=== PATIENT | female | born 1975 | race Caucasian/White ===

== ENCOUNTER 2022-03-23 16:14 | Inpatient (IN) | payer MEDICAID, BC, OTHER ==
[~2022-03-23] VITALS: Ht 152.4 cm; Wt 54.4 kg
--- NOTE | 2022-03-23 16:21 | NUR ---
BG 72
[2022-03-23] MEDS ORDERED: IV D5/ 0.9% NACL 1,000 ML IV ONE (16:30)
--- NOTE | 2022-03-23 16:37 | NUR ---
URINE COLLECTED AND SENT TO LAB
[2022-03-23 16:42] LABS: BASOPHILS % (AUTO) 0.1 % (0.0-2.0); EOSINOPHILS % (AUTO) 0.1 % (0.0-6.0); HEMATOCRIT 33 % (33-45); HEMOGLOBIN 9.4 g/dL (11.5-14.8); LYMPHOCYTES # (AUTO) 0.3 K/uL (0.8-4.8); MEAN CORPUSCULAR HGB CONC 28 g/dl (31.0-36.0); MEAN CORPUSCULAR VOLUME 103 fL (82-100); MONOCYTES # (AUTO) 1.7 K/uL (0.1-1.30); MONOCYTES % (AUTO) 14.8 % (2.0-12.0); NEUTROPHILS # (AUTO) 9.2 K/uL (1.8-8.9); RED BLOOD CELL COUNT(AUTO) 3.24 MIL/uL (4.0-5.2); WHITE BLOOD COUNT (AUTO) 11.3 K/uL (4.3-11.0)
--- NOTE | 2022-03-23 16:58 | NUR ---
MOVE SHEET SUBMITTED.
[2022-03-23 17:02] LABS: BILIRUBIN,URINE LARGE (NEGATIVE); COLOR,URINE YELLOW (YELLOW); LEUKOCYTE ESTERASE ,URINE NEGATIVE (NEGATIVE); NITRITE, URINE NEGATIVE (NEGATIVE); PROTEIN,URINE 30 mg/dl (NEGATIVE); UGLUCOSE NEGATIVE (NEGATIVE)
[2022-03-23 17:09] LABS: CALCIUM, SERUM 8.1 mg/dL (8.5-10.1); CARBON DIOXIDE 21 mmol/L (21-32); CHLORIDE 108 mmol/L (98-107); POTASSIUM 3.6 mmol/L (3.5-5.1); SODIUM SERUM 144 mmol/L (136-145); UREA NITROGEN, BLOOD 19 mg/dL (7-18)
[2022-03-23 17:10] LABS: SERUM AMMONIA 153 umol/L (11-32)
[2022-03-23] MEDS ORDERED: LORAZEPAM INJ 2 MG/ML VIAL ONE ×2 (17:10→21:42)
[2022-03-23 17:24] LABS: ALANINE AMINOTRANSFERASE 35 U/L (12-78); ALBUMIN 2.3 g/dL (3.4-5.0); ALCOHOL, BLOOD < 3 mg/dL (0-0); ALKALINE PHOSPHATASE 143 U/L (46-116); ASPARTATE AMINOTRANSFERASE 125 U/L (15-37); BILIRUBIN,DIRECT 6.2 mg/dL (0.0-0.2); BILIRUBIN,TOTAL 9.3 mg/dL (0.2-1.0); TOTAL PROTEIN, SERUM 7.2 g/dL (6.4-8.2)
[2022-03-23 17:25] LABS: ACETAMINOPHEN 0 ug/ml (10-30); GLUCOSE 494 mg/dL (74-106)
--- NOTE | 2022-03-23 17:27 | NUR ---
BG 234
[2022-03-23] MEDS ORDERED: IV NS 0.9% 1,000 ML IV ONE ×2 (17:30→19:00)
[2022-03-23] MEDS ORDERED: LORAZEPAM INJ 2 MG/ML VIAL IV ONE ×2 (17:30→21:30)
[2022-03-23 17:36] LABS: PLATELET COUNT (AUTO) 69 K/uL (150-450)
[2022-03-23 17:41] LABS: LYMPHOCYTES % (MANUAL) 4 % (16-48); MONOCYTES % (MANUAL) 5 % (0-11.0); NEUTROPHILS % (MANUAL) 91 (42-76)
[2022-03-23 17:44] LABS: BACTERIA,URINE 1+ /HPF (None Seen); RBC,URINE 81-100 /HPF (0-2); SQUAMOUS EPITHELIAL CELL,UR 0-2 /HPF (None Seen); URINE AMORPHOUS URATE Many /HPF (None Seen); WBC,URINE 0-2 /HPF (0-3)
[2022-03-23 18:04] LABS: THYROID STIMULATING HORMONE 0.521 uIU/mL (0.358-3.74)
--- NOTE | 2022-03-23 18:20 | NUR ---
PATIENT NOTED WITH O2 86% ON 6 LPM NASAL CANNULA. MD MADE AWARE. PATIENT MOVED TO BED 8 AND PLACED ON 15 LPM O2 VIA NRB MASK.
--- NOTE | 2022-03-23 18:49 | NUR ---
SLURRY PLANT OPERATOR AT BEDSIDE FOR XRAY
--- NOTE | 2022-03-23 18:56 | NUR ---
PATIENT O2 SATURATION IMPROVED TO 92% ON 15 LPM VIA NRB
[2022-03-23] MEDS ORDERED: PIPERACILLIN /TAZOBACTAM 3.375 G in IV D5W 50 ML IV ONE (19:00)
[2022-03-23] MEDS ORDERED: LACTULOSE 10 G/15 ML UDC (PYXIS) GT ONE (19:00)
[2022-03-23] MEDS ORDERED: VANCOMYCIN 1 GM in IV D5W 250 ML IV ONE (19:00)
--- NOTE | 2022-03-23 19:01 | NUR ---
COVID SWAB TAKEN AND SENT TO LAB
[2022-03-23] MEDS ORDERED: PIPERACILLIN /TAZOBACTAM 3.375 G VIAL IV ONE (19:05)
[2022-03-23 19:09] LABS: ABG BASE EXCESS -7.2 mmol/L; ABG PCO2 33.8 mmHg (35.0-45.0); ABG PH 7.338 (7.350-7.450); ABG PO2 69.6 mmHg (75.0-100.0); COHb 0.4 % (0.5-1.5); MetHb 0.3 % (0.0-1.5); O2Hb 88.3 % (94.0-97.0); SITE, ABG Right Radial; VENT MODE, BG 15 L NON REBREATHER
[2022-03-23] MEDS ORDERED: VANCOMYCIN 1 GM VIAL ONE (20:03)
[2022-03-23] MEDS ORDERED: PROPOFOL 100 ML ONE (22:42)
--- NOTE | 2022-03-23 22:50 | NUR ---
ER MD, RN, RT AT BEDSIDE FOR INTUBATION. TIME OUT DONE.
--- NOTE | 2022-03-23 22:57 | NUR ---
PATIENT INTUBATED AT 2257 B/P 123/82 RR 23 HR 125 PT TOLERATING VENT SETTING AT THIS TIME
[2022-03-23] MEDS ORDERED: ETOMIDATE 2 MG/ML VIAL IV ONE (23:00)
[2022-03-23] MEDS ORDERED: ROCURONIUM BROMIDE 100 MG/10 ML VIAL IV ONE (23:00)
--- NOTE | 2022-03-23 23:00 | NUR ---
RT NOTE PT INTUBATED VIA 7.5 ETT AT 23 LIPLINE. POSTIVE COLOR CHANGE AND BILATERAL BS NOTED. ETT SECURE AND PATENT. PT PLACED ON VENT W SETTINGS: AC 16,450,100%,+5. ALARMS SET AND AUDIBLE. VENT PLUGGED INTO RED OUTLET. PT SXD W NO ADVERSE REACTIONS.
[2022-03-23] MEDS ORDERED: PROPOFOL 100 ML IV PRN (23:30)
[2022-03-23] MEDS ORDERED: LACTULOSE 10 G/15 ML UDC (PYXIS) ONE (23:31)
[2022-03-24] VITALS (52 sets, daily range): BP systolic 88–125; BP diastolic 52–112
[2022-03-24] MEDS ORDERED: MORPHINE SULFATE INJ 2 MG/ML DISP.SYRIN IV PRN
[2022-03-24] MEDS ORDERED: DEXTROSE 50%-WATER 50 ML DISP.SYRIN IV PRN
[2022-03-24] MEDS ORDERED: Z GUARD REMEDY 4 OZ OINT TP PRN
[2022-03-24] MEDS ORDERED: ALBUTEROL FS 2.5 MG/3 ML VIAL.NEB NEB PRN
[2022-03-24] MEDS ORDERED: NOREPINEPHRINE 8 MG in IV NS 0.9% 242 ML IV PRN (00:30)
[2022-03-24 00:47] LABS: ABG BASE EXCESS -6.9 mmol/L; ABG PCO2 40.7 mmHg (35.0-45.0); ABG PH 7.292 (7.350-7.450); ABG PO2 290.6 mmHg (75.0-100.0); COHb 0.3 % (0.5-1.5); MetHb 0.6 % (0.0-1.5); O2Hb 98.7 % (94.0-97.0); PEEP,BG 5 cm H2O; SITE, ABG Right Radial; VENT MODE, BG AC 16 450 100% +5; VT, ABG 450 mL
[2022-03-24] MEDS ORDERED: IOHEXOL-350 100 ML VIAL IV ONE ×2 (00:51→02:42)
[2022-03-24] MEDS ORDERED: IV NS 0.9% 250 ML IV ONE ×2 (00:51→02:42)
--- NOTE | 2022-03-24 01:00 | NUR ---
RT NOTE ABG DONE AND RESULTS RELAYED TO MD. O2 TITRATED TO 60%. NO OTHER CHANGES ORDERED AT THIS TIME.
--- NOTE | 2022-03-24 01:55 | NUR ---
RT NOTE ETT RETRACTED TO 22CM LIP LINE PER MD ORDER. NO S/S OF RESP DISTRESS. RN AWARE.
[2022-03-24] MEDS ORDERED: ZOSYN IVPB 3.375 G in IV D5W 50ml IV ONE (03:00)
--- NOTE | 2022-03-24 03:00 | NUR ---
patient returned from ct
[2022-03-24] MEDS ORDERED: PIPERACILLIN /TAZOBACTAM 3.375 G VIAL IV ONE (03:20)
--- NOTE | 2022-03-24 05:00 | NUR ---
propofol running at 20 mcg/kg/min pt vss pt tolerating vent setting well will continue to monitor
[2022-03-24] MEDS ORDERED: PROPOFOL 100 ML ONE (05:09)
[2022-03-24 05:18] LABS: BASOPHILS # (AUTO) 0.1 K/uL (0.0-0.2); BASOPHILS % (AUTO) 0.7 % (0.0-2.0); EOSINOPHILS % (AUTO) 0.3 % (0.0-6.0); HEMATOCRIT 31 % (33-45); LYMPHOCYTES # (AUTO) 0.9 K/uL (0.8-4.8); LYMPHOCYTES % (AUTO) 8.3 % (20.0-44.0); MEAN CORPUSCULAR HGB CONC 32 g/dl (31.0-36.0); MEAN CORPUSCULAR VOLUME 92 fL (82-100); MONOCYTES # (AUTO) 2.1 K/uL (0.1-1.30); MONOCYTES % (AUTO) 19.9 % (2.0-12.0); NEUTROPHILS # (AUTO) 7.5 K/uL (1.8-8.9); NEUTROPHILS % (AUTO) 70.8 % (43.0-81.0); PLATELET COUNT (AUTO) 58 K/uL (150-450); RED BLOOD CELL COUNT(AUTO) 3.41 MIL/uL (4.0-5.2); WHITE BLOOD COUNT (AUTO) 10.6 K/uL (4.3-11.0)
[2022-03-24 05:30] LABS: CALCIUM, SERUM 7.8 mg/dL (8.5-10.1); CREATININE 1.2 mg/dL (0.6-1.3); MAGNESIUM 1.8 mg/dL (1.8-2.4); PHOSPHORUS 2.5 mg/dL (2.5-4.9); POTASSIUM 3.4 mmol/L (3.5-5.1)
[2022-03-24 05:42] LABS: THYROID STIMULATING HORMONE 0.811 uIU/mL (0.358-3.74)
[2022-03-24] MEDS: BLOOD SUGAR DIAGNOSTIC 1 EACH STRIP IN SCH ×4 (06:09→16:46)
[2022-03-24 06:42] LABS: BAND % (MANUAL) 4 % (0.0-5.0); LYMPHOCYTES % (MANUAL) 16 % (16-48); MONOCYTES % (MANUAL) 15 % (0-11.0); NEUTROPHILS % (MANUAL) 65 (42-76)
--- NOTE | 2022-03-24 07:32 | NUR ---
GOT BED 257
--- NOTE | 2022-03-24 08:00 | NUR ---
MACHINE TOOL BUILDER NOTES PATIENT ADMITTED FROM ER 46Y/OLD FEMALE ON Dx OF END STAGE LIVER FAILURE, AND ACUTE HYPOXIC RESPIRATORY DISTRESS. PATIENT INTUBATED ETT SETTINGS ARE: 7.5/22, TV-450, FIO2-50%, PEEP-5, AND AC-16. BEDSIDE MONITOR SHOWS ST-122. PATIENT SEDATED DIPRIVAN 20MCG/KG/MIN, PATIENT BREATHING FAST, INCREASED SEDATION PE Dr JOSEPH, TITRATED UP PER PROTOCOL. SKIN ASSESSMENT DONE, PICTURE TAKEN, MILLER DRAINING DARK YELLOW OUTPUT, PATIENT T-103.2 F, COOLING MEASURE APPLIED, ALSO CALLED MD FOR TYLENOL ORDERS. AM CARE DONE. KEEP HOB ELEVATED. NGT INTACT, AND CLAMPED. PATIENT GETTING PICC LINE INSERTION OF MOHAN, BILATERAL WRIST RESTRAIN INTACT. BED IS LOCKED, SIDE RAILS UP X3. WILL FOLLOW UP.
[2022-03-24] MEDS: IV D5/ 0.9% NACL 1,000 ML IV PRN (08:23)
[2022-03-24] MEDS: VANCOMYCIN HCL 0.75 GM in IV D5W 250 ML IV SCH ×2 (08:39→20:32)
[2022-03-24] MEDS: FUROSEMIDE 40 MG/4 ML VIAL IV SCH (09:17)
[2022-03-24] MEDS: PANTOPRAZOLE 40 MG VIAL IV SCH (09:17)
[2022-03-24] MEDS ORDERED: ETOMIDATE 2 MG/ML VIAL IV ONE (09:18)
[2022-03-24] MEDS: PIPERACILLIN /TAZOBACTAM 3.375 G in IV D5W 50 ML IV SCH ×3 (09:18→20:43)
[2022-03-24] MEDS ORDERED: ROCURONIUM BROMIDE 50 MG/5 ML IV ONE (09:18)
[2022-03-24] MEDS: POTASSIUM CL. PREMIX PERIPHER. 50 ML IV SCH ×2 (09:53→11:17)
[2022-03-24] MEDS ORDERED: LACTULOSE 10 G/15 ML UDC (PYXIS) PO PRN (10:00)
[2022-03-24] MEDS ORDERED: INSU100I14 SQ (10:07)
[2022-03-24] MEDS ORDERED: TRAZ150T75 PO (10:07)
[2022-03-24] MEDS ORDERED: ESCI10TA PO (10:07)
[2022-03-24] MEDS ORDERED: PANT40TA49 PO (10:07)
[2022-03-24] MEDS ORDERED: LACT10SO3 PO (10:07)
[2022-03-24] MEDS ORDERED: DULO60CA64 PO (10:07)
[2022-03-24] MEDS ORDERED: SPIR25TA6 PO (10:07)
[2022-03-24] MEDS ORDERED: METF-440 PO (10:07)
[2022-03-24] MEDS ORDERED: POTA8CAP20 PO (10:07)
[2022-03-24] MEDS ORDERED: ARIP30TA3 PO (10:07)
[2022-03-24] MEDS ORDERED: HYDR50CA9 PO (10:07)
[2022-03-24] MEDS ORDERED: GABA300C PO (10:07)
--- NOTE | 2022-03-24 10:23 | NUR ---
RN NOTE PT DNR STATUS. PT UNRESPONSIVE, PUPILS FIXED, APNEIC, AREFLEXIVE, ASYSTOLIC IN 2 LEADS. PRONOUNCED AT 1023 Addendum: 03/24/22 at 1038 by DEAN FARAH RN RN AMENDMENT CHARTED ON WRONG CHART. DISREGARD NOTE
[2022-03-24] MEDS: DEXAMETHASONE SOD PHOSPHATE 10 MG/ML VIAL IV SCH (10:25)
[2022-03-24] MEDS: PROPRANOLOL HCL 40 MG TABLET NG SCH ×2 (10:37→20:45)
[2022-03-24] MEDS: PROPOFOL 100 ML IV PRN ×3 (11:59→23:25)
--- NOTE | 2022-03-24 12:00 | NUR ---
rn notes BS-143 MG/DL, NO COVERAGE GIVEN PER HOSPITALIST Dr MACDONALD, , T-99.8F, GET ORDER OF TYLENOL 650 MG VIA NGT Q 6HR. ORDER TAKEN AND CARRIED OUT.
--- NOTE | 2022-03-24 16:20 | NUR ---
RN NOTES COVIS -19 PCR SPECIMEN TAKEN. TAKEN TO THE LABORATORY BY MY SELF.
--- NOTE | 2022-03-24 17:27 | NUR ---
RN NOTES ADMINISTERED TYLENOL 650 MG VIA NGT FOR T-99/7F.
[2022-03-24] MEDS ORDERED: ACETAMINOPHEN 650 MG/20.3 ML UDC NG PRN (17:30)
--- NOTE | 2022-03-24 18:00 | NUR ---
RN NOTES BS-184 MG/DL NO COVERAGE GIVE PER HOSPITALIST IF BS LOWER THAN 200MG/DL.
--- NOTE | 2022-03-24 18:43 | NUR ---
RN NOTES T-99.3F , MEDICATION WERE ADMINISTERED EFFECTIVE, ASSIST TURN AND REPOSTION Q 2 HR, KEEP HOB ELEVATED. INFUSING DIPRIVAN 50MCG/KG/MIN, D5NS @40ML/HR, AND TKO @10ML/HR MOHAN PICC LINE INTACT. DUE MEDICATION ADMINISTERED. MILLER DRAINING VIA GRAVITY 2800ML URINE OUTPUT . RECHECKED RESTRAIN BILATERAL WRISTS INTACT. ENDORSED ONCOMING NURSE NINA.
--- NOTE | 2022-03-24 19:40 | NUR ---
AMMONIA STILL OPERATOR OPENING NOTES RECEIVED PT IN BED, INTUBATED ETT SETTINGS: 7.5/22, AC- 16, TV- 450, PEEP-5. PT IS SEDATED WITH PROPOFOL 50MCG/KG/MIN. IV ACCESS ON MOHAN PICC LINE. INFUSING D5NS @40ML/HR, AND TKO @10ML/HR. NO FACIAL GRIMACING NOTED. NO ACUTE DISTRESS. MILLER CATHETER IN PLACE. DRAINING VIA GRAVITY. BILATERAL WRISTS RESTRAINT IN PLACE. ALL SAFETY MEASURES IN PLACE. SIDE RAILS UP X3, BED IN LOWEST POSITION AND LOCKED. PLACE CALL LIGHT WITH IN REACH. WILL CONTINUE TO MONITOR
--- NOTE | 2022-03-24 20:28 | NUR ---
RN NOTES: PT'S MOTHER CALLED, SHE WANTS TO COME TO ICU AND VISIT THE PT. EXPLAINED TO THE MOTHER, PT IS PCR PENDING. CAN'T VISIT AT THIS MOMENT. BUT KEPT INSISTING. NOTIFIED SPOOL FIXER. SHE TALKED TO THE FAMILY, BROUGHT THEM TO ICU AND MOM VISITED THE PT BY THE WINDOW.
[2022-03-25] VITALS (83 sets, daily range): BP systolic 95–152; BP diastolic 52–130
[2022-03-25] MEDS: BLOOD SUGAR DIAGNOSTIC 1 EACH STRIP IN SCH ×4 (00:03→18:23)
[2022-03-25] MEDS: INSULIN REGULAR, HUMAN 100 UNIT/ML 3 ML VIAL SQ PRN ×4 (00:05→18:25)
[2022-03-25] MEDS: PIPERACILLIN /TAZOBACTAM 3.375 G in IV D5W 50 ML IV SCH ×4 (03:11→21:05)
[2022-03-25 05:17] LABS: BASOPHILS % (AUTO) 0.2 % (0.0-2.0); HEMATOCRIT 27 % (33-45); HEMOGLOBIN 8.7 g/dL (11.5-14.8); LYMPHOCYTES # (AUTO) 0.4 K/uL (0.8-4.8); LYMPHOCYTES % (AUTO) 11.9 % (20.0-44.0); MEAN CORPUSCULAR HGB CONC 32 g/dl (31.0-36.0); MEAN CORPUSCULAR VOLUME 92 fL (82-100); MONOCYTES # (AUTO) 0.4 K/uL (0.1-1.30); MONOCYTES % (AUTO) 11.5 % (2.0-12.0); NEUTROPHILS # (AUTO) 2.7 K/uL (1.8-8.9); NEUTROPHILS % (AUTO) 76.4 % (43.0-81.0); RED BLOOD CELL COUNT(AUTO) 2.95 MIL/uL (4.0-5.2); WHITE BLOOD COUNT (AUTO) 3.5 K/uL (4.3-11.0)
[2022-03-25 05:18] LABS: CALCIUM, SERUM 7.7 mg/dL (8.5-10.1); CREATININE 1.1 mg/dL (0.6-1.3); POTASSIUM 3.1 mmol/L (3.5-5.1)
[2022-03-25 05:26] LABS: PLATELET COUNT (AUTO) 33 K/uL (150-450)
--- NOTE | 2022-03-25 05:38 | NUR ---
RN NOTES: RECEIVED LAB RESULT, PT'S PLATELET 33, BEFORE IT WAS 58. NO S/S OF BLEEDING. WILL CONTINUE TO MONITOR
[2022-03-25] MEDS: PROPOFOL 100 ML IV PRN (06:11)
--- NOTE | 2022-03-25 06:48 | NUR ---
NEWSPAPER COPY EDITOR CLOSING NOTES PT IN BED, INTUBATED ETT SETTINGS: 7.5/22, AC- 16, TV- 450, PEEP-5. PT IS SEDATED WITH PROPOFOL 50MCG/KG/MIN. IV ACCESS ON MOHAN PICC LINE. INFUSING D5NS @40ML/HR, AND TKO @10ML/HR. NO FACIAL GRIMACING NOTED. NO ACUTE DISTRESS. MILLER CATHETER IN PLACE. DRAINING VIA GRAVITY. BILATERAL WRISTS RESTRAINT IN PLACE. ALL DUE MEDS GIVEN ORDERED. BLOOD SUGAR 284, 6 UNITS OF REGULAR INSULIN. ALL SAFETY MEASURES IN PLACE. SIDE RAILS UP X3, BED IN LOWEST POSITION AND LOCKED. PLACE CALL LIGHT WITH IN REACH. WILL ENDORSE TO MORNING SHIFT NURSE
[2022-03-25] MEDS: FUROSEMIDE 40 MG/4 ML VIAL IV SCH (07:46)
[2022-03-25] MEDS: VANCOMYCIN HCL 0.75 GM in IV D5W 250 ML IV SCH ×2 (07:46→19:55)
[2022-03-25] MEDS: PANTOPRAZOLE 40 MG VIAL IV SCH (07:46)
[2022-03-25] MEDS: DEXAMETHASONE SOD PHOSPHATE 10 MG/ML VIAL IV SCH (07:47)
[2022-03-25] MEDS: PROPRANOLOL HCL 40 MG TABLET NG SCH ×2 (07:47→21:05)
--- NOTE | 2022-03-25 08:00 | NUR ---
RN NOTES PATIENT INTUBATED, NO ACUTE RESPIRATORY DISTRESS, SEDATED DIPRIVAN 50MCG/KG/MIN. HR-66, BP 98/56, INFUSING D5NS@40ML/HR, MILLER DRAINING VIA GRAVITY. KEEP HOB ELEVATED, ASSIST TURN AND REPOSTION Q 2 HR. SUCTION, MOUTH CARE DONE, NGT CLAMPED ADMINISTERED SCHEDULED MEDICATION, LAB VALUES REVIEWED, RECHECKED BILATERAL WRIST RESTRAIN INTACT. WILL FOLLOW UP.
[2022-03-25] MEDS ORDERED: POTASSIUM CHLORIDE 20 MEQ POWDER PACKET GT SCH (08:30)
[2022-03-25] MEDS: IV D5/ 0.9% NACL 1,000 ML IV PRN ×2 (08:47→18:27)
[2022-03-25 08:51] LABS: MAGNESIUM 2.1 mg/dL (1.8-2.4)
--- NOTE | 2022-03-25 08:55 | NUR ---
rn notes held sedation at this time for weaning from vent . patient calm and cooperative, no acute respiratory distress, RT with the patient . will follow up.
[2022-03-25 09:06] LABS: THYROID STIMULATING HORMONE 0.243 uIU/mL (0.358-3.74)
[2022-03-25 11:05] LABS: BAND % (MANUAL) 5 % (0.0-5.0); LYMPHOCYTES % (MANUAL) 19 % (16-48); MONOCYTES % (MANUAL) 7 % (0-11.0); NEUTROPHILS % (MANUAL) 69 (42-76)
--- NOTE | 2022-03-25 12:00 | NUR ---
RN NOTES BS-258 MG/DL COVERAGE GIVEN, CONTINUING MONITOR PATIENT OFF SEDATION, PATIENT ABLE TO MOVING FOOTS, BUT UNABLE TO OPEN EYES, MOTHER NEXT TO THE BED.
--- NOTE | 2022-03-25 18:30 | NUR ---
RN NOTES PM CARE DONE SUCTION, ASSIST TURN AND REPOSTION. PATIENT OFF SEDATION MONITORING, TOLERATING ETT SETTING WELL, NO ACUTE RESPIRATORY DISTRESS, KEEP HOB ELEVATED, RECHECKED BILATERAL WRIST RESTRAIN INTACT. PATIENT NPO NGT CLAMPED, BS-233 MG/DL COVERAGE GIVEN, INFUSING D5NS@100ML/HR, AND TKO @10ML ON MOHAN PICC LINE INTACT. DVT PUMP ON, MILLER DRAINING 1580ML OF OUTPUT. ENDORSED ONCOMING NURSE NINA.
[2022-03-26] VITALS (30 sets, daily range): BP systolic 95–124; BP diastolic 56–76
[2022-03-26] MEDS: BLOOD SUGAR DIAGNOSTIC 1 EACH STRIP IN SCH ×5 (00:29→23:16)
[2022-03-26] MEDS: INSULIN REGULAR, HUMAN 100 UNIT/ML 3 ML VIAL SQ PRN ×4 (00:38→23:23)
[2022-03-26] MEDS: LACTULOSE 10 G/15 ML UDC (PYXIS) PO PRN ×2 (01:18→07:00)
[2022-03-26] MEDS: PIPERACILLIN /TAZOBACTAM 3.375 G in IV D5W 50 ML IV SCH ×4 (03:07→21:28)
[2022-03-26 04:02] LABS: HEMATOCRIT 29 % (33-45); HEMOGLOBIN 9.3 g/dL (11.5-14.8); LYMPHOCYTES # (AUTO) 0.2 K/uL (0.8-4.8); LYMPHOCYTES % (AUTO) 4.8 % (20.0-44.0); MEAN CORPUSCULAR HGB CONC 32 g/dl (31.0-36.0); MEAN CORPUSCULAR VOLUME 92 fL (82-100); MONOCYTES # (AUTO) 0.5 K/uL (0.1-1.30); NEUTROPHILS # (AUTO) 4.4 K/uL (1.8-8.9); NEUTROPHILS % (AUTO) 85.2 % (43.0-81.0); RED BLOOD CELL COUNT(AUTO) 3.14 MIL/uL (4.0-5.2); WHITE BLOOD COUNT (AUTO) 5.2 K/uL (4.3-11.0)
[2022-03-26] MEDS: IV D5/ 0.9% NACL 1,000 ML IV PRN (04:28)
[2022-03-26 04:33] LABS: CREATININE 0.9 mg/dL (0.6-1.3); POTASSIUM 3.5 mmol/L (3.5-5.1)
[2022-03-26 04:34] LABS: ALBUMIN 1.8 g/dL (3.4-5.0); BILIRUBIN,TOTAL 6.1 mg/dL (0.2-1.0); MAGNESIUM 1.9 mg/dL (1.8-2.4); PHOSPHORUS 2.9 mg/dL (2.5-4.9); TOTAL PROTEIN, SERUM 6.2 g/dL (6.4-8.2)
[2022-03-26 04:40] LABS: PLATELET COUNT (AUTO) 32 K/uL (150-450)
[2022-03-26 05:05] LABS: BAND % (MANUAL) 4 % (0.0-5.0); BASOPHILS % (MANUAL) 0 % (0.0-2.0); EOSINOPHILS % (MANUAL) 0 % (0-4); LYMPHOCYTES % (MANUAL) 6 % (16-48); MONOCYTES % (MANUAL) 8 % (0-11.0); NEUTROPHILS % (MANUAL) 82 (42-76)
--- NOTE | 2022-03-26 07:28 | NUR ---
RN OPENING NOTES RECEIVED PT IN BED, INTUBATED ETT SETTINGS: 7.5/, AC- 16, TV- 450,FiO2 30% PEEP-5. IV ACCESS ON MOHAN PICC LINE. INFUSING D5NS @100ML/HR, AND TKO @10ML/HR. NO FACIAL GRIMACING NOTED. NO ACUTE DISTRESS. NGT NOTED. MILLER CATHETER IN PLACE. DRAINING VIA GRAVITY. BILATERAL WRISTS RESTRAINT IN PLACE. ALL SAFETY MEASURES IN PLACE. SIDE RAILS UP X3, BED IN LOWEST POSITION AND LOCKED. PLACE CALL LIGHT WITH IN REACH.
[2022-03-26] MEDS: DEXAMETHASONE SOD PHOSPHATE 10 MG/ML VIAL IV SCH (08:06)
[2022-03-26] MEDS: VANCOMYCIN HCL 0.75 GM in IV D5W 250 ML IV SCH (08:06)
[2022-03-26] MEDS: PANTOPRAZOLE 40 MG VIAL IV SCH (08:07)
[2022-03-26] MEDS: PROPRANOLOL HCL 40 MG TABLET NG SCH ×2 (08:08→21:00)
--- NOTE | 2022-03-26 08:29 | NUR ---
RN NOTE RECIEVED ORDER FROM DR JOSEPH TO INITIATE TUBE FEEDING GLUCERNA 1.2 AT 30ML/HR. NUTRITION CONSULTS ALSO PLACE FOR A FINAL RATE. LACTULOSE RX ORDER CHANGED TO Q6HR NEXT DOSE IS SCHEDULED FOR 1200 TODAY. AMONIA LEVEL IS ALSO TO BE DRAWN TODAY ORDERS PLACED.
[2022-03-26] MEDS: GLUCERNA 1.2 1,000 ML BOTTLE NG PRN (10:11)
[2022-03-26] MEDS: LACTULOSE 10 G/15 ML UDC (PYXIS) PO SCH ×3 (11:23→23:17)
[2022-03-26] MEDS: IV 1/2NS 1000 ML 1,000 ML IV SCH (15:00)
[2022-03-26 15:38] LABS: C-REACTIVE PROTEIN 1.1 mg/dL (0.0-0.9)
[2022-03-26 16:56] LABS: D-DIMER 7.27 mg/L(FEU (0.17-0.50)
--- NOTE | 2022-03-26 18:41 | NUR ---
RN CLOSING NOTES PT IN BED, INTUBATED ETT SETTINGS: 7.5/22, AC- 16, TV- 400, PEEP-5. IV ACCESS ON MOHAN PICC LINE. INFUSING 1/2NS @100ML/HR, AND TKO @10ML/HR. NO ACUTE DISTRESS. MILLER CATHETER IN PLACE. DRAINING VIA GRAVITY. BILATERAL WRISTS RESTRAINT IN PLACE. . ALL SAFETY MEASURES IN PLACE. SIDE RAILS UP X3, BED IN LOWEST POSITION AND LOCKED. PLACE CALL LIGHT WITH IN REACH. WILL ENDORSE TO FINANCIAL ASSISTANCE SPECIALIST NURSE
[2022-03-26] MEDS ORDERED: PHYTONADIONE INJ 10 MG/1 ML AMPUL SQ ONE (20:00)
[2022-03-26] MEDS: VANCOMYCIN 1 GM in IV D5W 250ml IV SCH (20:25)
[2022-03-26] MEDS: FAMOTIDINE/PF INJ 20 MG/2 ML VIAL IV SCH (20:25)
[2022-03-27] VITALS (38 sets, daily range): BP systolic 97–143; BP diastolic 62–88
--- NOTE | 2022-03-27 00:57 | NUR ---
ICU/RN: CRITICAL FIBRINOGEN 89 REPORTED TO DARIO HERNANDEZ DNP. NO NEW ORDERS.
[2022-03-27] MEDS: IV 1/2NS 1000 ML 1,000 ML IV SCH ×3 (01:28→22:46)
[2022-03-27] MEDS: PIPERACILLIN /TAZOBACTAM 3.375 G in IV D5W 50 ML IV SCH ×4 (03:07→22:43)
[2022-03-27 04:54] LABS: BASOPHILS % (AUTO) 0.2 % (0.0-2.0); HEMATOCRIT 32 % (33-45); HEMOGLOBIN 10.1 g/dL (11.5-14.8); LYMPHOCYTES # (AUTO) 0.3 K/uL (0.8-4.8); LYMPHOCYTES % (AUTO) 4.3 % (20.0-44.0); MEAN CORPUSCULAR HGB CONC 32 g/dl (31.0-36.0); MEAN CORPUSCULAR VOLUME 92 fL (82-100); MONOCYTES # (AUTO) 1.4 K/uL (0.1-1.30); MONOCYTES % (AUTO) 18.7 % (2.0-12.0); NEUTROPHILS # (AUTO) 5.9 K/uL (1.8-8.9); NEUTROPHILS % (AUTO) 76.8 % (43.0-81.0); RED BLOOD CELL COUNT(AUTO) 3.45 MIL/uL (4.0-5.2); WHITE BLOOD COUNT (AUTO) 7.6 K/uL (4.3-11.0)
[2022-03-27 05:10] LABS: CREATININE 0.8 mg/dL (0.6-1.3); MAGNESIUM 1.9 mg/dL (1.8-2.4); PHOSPHORUS 2.9 mg/dL (2.5-4.9); POTASSIUM 3.4 mmol/L (3.5-5.1)
[2022-03-27 05:31] LABS: PLATELET COUNT (AUTO) 48 K/uL (150-450)
[2022-03-27] MEDS: BLOOD SUGAR DIAGNOSTIC 1 EACH STRIP IN SCH ×3 (05:35→17:06)
[2022-03-27] MEDS: LACTULOSE 10 G/15 ML UDC (PYXIS) PO SCH ×3 (05:36→17:08)
[2022-03-27 07:07] LABS: IMMUNOGLOBULIN A, SERUM 908 mg/dL (87-352); IMMUNOGLOBULIN G, SERUM 1703 mg/dL (586-1602)
--- NOTE | 2022-03-27 07:40 | NUR ---
ICU/RN PT IS INTUBATED ON THE VENT AC MODE,FIO2-305.SAT O2-100%.V/S STABLE,AFEBRILE.PT IS NOT SEDATED.RESPONSIVE ON PAIN STIMULATION.NOT OPEN HER EYES.LEFT UPPER ARM PICC LINE,IV INFUSING ORDERED.NG TUBE INFUSING WITH FEEDING,NO RESIDUAL.F/C DRAINING WITH DARK URINE.BRUISES NOTED ALL OVER THE BODY.LABS REVIEW.MD NOTIFIED.SUCTION PROVIDED.REPOSITION FOR COMFORT.
[2022-03-27] MEDS: VANCOMYCIN 1 GM in IV D5W 250ml IV SCH (08:25)
[2022-03-27] MEDS: PROPRANOLOL HCL 40 MG TABLET NG SCH ×2 (08:26→21:00)
[2022-03-27] MEDS: DEXAMETHASONE SOD PHOSPHATE 10 MG/ML VIAL IV SCH (08:26)
[2022-03-27] MEDS: FAMOTIDINE/PF INJ 20 MG/2 ML VIAL IV SCH ×2 (08:26→22:43)
[2022-03-27] MEDS ORDERED: POTASSIUM CHLORIDE 20 MEQ POWDER PACKET NG SCH (11:00)
[2022-03-27 11:01] LABS: BAND % (MANUAL) 6 % (0.0-5.0); LYMPHOCYTES % (MANUAL) 13 % (16-48); MONOCYTES % (MANUAL) 10 % (0-11.0); NEUTROPHILS % (MANUAL) 71 (42-76)
[2022-03-27 11:06] LABS: *ANA ANTI-CENTROMERE B AB <0.2 AI (0.0-0.9); *ANA ANTI-DNA(DS) AB, QN 1 IU/mL (0-9); *ANA ANTI-JO-1 <0.2 AI (0.0-0.9); *ANA ANTICHROMATIN ANTIBODY 0.2 AI (0.0-0.9); *ANA RNP ANTIBODIES 7.4 AI (0.0-0.9); *ANA SJOGREN'S ANTI-SS-A 1.6 AI (0.0-0.9); *ANA SJOGREN'S ANTI-SS-B <0.2 AI (0.0-0.9); *ANAANTI-SCLERODERMA-70 AB <0.2 AI (0.0-0.9); *ANASMITH AB 0.2 AI (0.0-0.9)
[2022-03-27] MEDS: GLUCERNA 1.2 1,000 ML BOTTLE NG PRN (12:12)
[2022-03-27] MEDS: INSULIN REGULAR, HUMAN 100 UNIT/ML 3 ML VIAL SQ PRN ×2 (12:24→17:46)
[2022-03-27 13:07] LABS: *SPE A/G RATIO 0.6 (0.7-1.7); *SPE ALPHA-1-GLOBULIN 0.2 g/dL (0.0-0.4); *SPE ALPHA-2-GLOBULIN 0.4 g/dL (0.4-1.0); *SPE BETA GLOBULIN 0.8 g/dL (0.7-1.3); *SPE M-SPIKE Not Observed g/dL (Not Observed)
[2022-03-27] MEDS: SOD FERRIC GLUC 125 MG in IV NS 0.9% 100 ML IV SCH (17:06)
--- NOTE | 2022-03-27 18:05 | NUR ---
ICU/RN PM CARE PROVIDED.DUE MEDS ARE GIVEN ORDERED.PT IS NOT OPEN HER EYES .RESPONSIVE ON PAIN STIMULATION ONLY.INTUBATED ON THE VENT.GENERELISED EDEMA NOTED.WOUND DRESSING DONE ORDERED.STILL WAITING FOR CRYOPRECIPITATE.
[2022-03-27] MEDS ORDERED: GLUCERNA 1.2 1,000 ML BOTTLE NG PRN (18:30)
[2022-03-27 18:54] LABS: ABG BASE EXCESS 1.8 mmol/L; ABG OXYGEN SATURATION 97.9 % (92.0-98.5); ABG PCO2 32.1 mmHg (35.0-45.0); ABG PH 7.503 (7.350-7.450); ABG PO2 114.1 mmHg (75.0-100.0); AaDO2 62.1 mmHg; COHb 0.1 % (0.5-1.5); MetHb 0.1 % (0.0-1.5); O2Hb 97.7 % (94.0-97.0); SITE, ABG Left Radial
[2022-03-27 19:49] LABS: D-DIMER 9.98 mg/L(FEU (0.17-0.50)
--- NOTE | 2022-03-27 19:53 | NUR ---
ICU/RN: CRITICAL PTT 77.7 AND FIBRINOGEN 92 REPORTED TO DARIO HERNANDEZ DNP. NO NEW ORDERS.
[2022-03-27] MEDS: SPIRONOLACTONE 25 MG TABLET PO SCH (22:43)
--- NOTE | 2022-03-27 23:10 | NUR ---
ICU/RN: 10UNITS CRYO TRANSFUSED ORDERED. NO S/S OF REACTION.
[2022-03-28] VITALS (25 sets, daily range): BP systolic 120–163; BP diastolic 71–92
[2022-03-28] MEDS: BLOOD SUGAR DIAGNOSTIC 1 EACH STRIP IN SCH ×4 (00:25→17:01)
[2022-03-28] MEDS: LACTULOSE 10 G/15 ML UDC (PYXIS) PO SCH ×4 (00:28→17:01)
[2022-03-28] MEDS: INSULIN REGULAR, HUMAN 100 UNIT/ML 3 ML VIAL SQ PRN ×4 (00:29→17:25)
[2022-03-28] MEDS: PIPERACILLIN /TAZOBACTAM 3.375 G in IV D5W 50 ML IV SCH ×4 (02:56→21:26)
[2022-03-28 05:40] LABS: BASOPHILS % (AUTO) 0.2 % (0.0-2.0); HEMATOCRIT 33 % (33-45); HEMOGLOBIN 10.6 g/dL (11.5-14.8); LYMPHOCYTES # (AUTO) 0.3 K/uL (0.8-4.8); LYMPHOCYTES % (AUTO) 3.4 % (20.0-44.0); MEAN CORPUSCULAR HGB CONC 33 g/dl (31.0-36.0); MEAN CORPUSCULAR VOLUME 92 fL (82-100); MONOCYTES # (AUTO) 1.9 K/uL (0.1-1.30); MONOCYTES % (AUTO) 20.1 % (2.0-12.0); NEUTROPHILS % (AUTO) 76.3 % (43.0-81.0); PLATELET COUNT (AUTO) 51 K/uL (150-450); RED BLOOD CELL COUNT(AUTO) 3.52 MIL/uL (4.0-5.2); WHITE BLOOD COUNT (AUTO) 9.2 K/uL (4.3-11.0)
[2022-03-28 06:07] LABS: CALCIUM, SERUM 8.5 mg/dL (8.5-10.1); CREATININE 0.8 mg/dL (0.6-1.3)
[2022-03-28 06:15] LABS: D-DIMER 13.17 mg/L(FEU (0.17-0.50)
--- NOTE | 2022-03-28 07:20 | NUR ---
ICU/RN PT IS STILL INTUBATED ON THE VENT ,AC MODE,FIO2-30%.SAT O2-98%.V/S STABLE,AFEBRILE.PT IS OFF SEDATION ,RESPONSIVE ON PAIN STIMULATION ONLY,NOT OPEN HER EYES.IV INFUSING ORDERED.NG TUBE FEEDING INFUSING WITH GLUCERNA AT 45 ML/HR.70 ML GASTRIC RESIDUAL NOTED.F/C DRAINING WITH BILE COLOR URINE.LABS REVIEW.AMMONIA LEVEL 135. MD NOTIFIED.PT IS ON LACTULOSE Q 6 HRS.WAS NO BOWEL MOVEMENTS FOR MORE THEN 4 DAYS. MD AWARE.SUCTION PROVIDED.REPOSITION FOR COMFORT.
[2022-03-28] MEDS: DEXAMETHASONE SOD PHOSPHATE 10 MG/ML VIAL IV SCH (08:17)
[2022-03-28] MEDS: PROPRANOLOL HCL 40 MG TABLET NG SCH ×2 (08:19→21:00)
[2022-03-28] MEDS: FAMOTIDINE/PF INJ 20 MG/2 ML VIAL IV SCH ×2 (08:19→21:26)
[2022-03-28] MEDS: SPIRONOLACTONE 25 MG TABLET PO SCH (08:19)
[2022-03-28] MEDS: IV 1/2NS 1000 ML 1,000 ML IV SCH ×2 (08:21→16:00)
--- NOTE | 2022-03-28 09:00 | NUR ---
ICU/RN DUE MEDS ARE GIVEN ORDERED.PT JUST HAVE 2 BOWEL MOVEMENTS WITH SOFT YELLOW STOOL.YASHIRA CARE PROVIDED. NEW AMMONIA LEVEL ORDERED AT [address] JOSPEH SEEN THE PT.FAMILY AT BED SIDE.CONTINUE MONITORING.
[2022-03-28] MEDS: RIFAXIMIN 550 MG TABLET PO SCH ×2 (09:48→17:01)
[2022-03-28 10:16] LABS: MAGNESIUM 1.9 mg/dL (1.8-2.4); PHOSPHORUS 2.9 mg/dL (2.5-4.9)
[2022-03-28 11:12] LABS: ABG BASE EXCESS -12.1 mmol/L; ABG OXYGEN SATURATION 97.7 % (92.0-98.5); ABG PCO2 31.6 mmHg (35.0-45.0); ABG PH 7.259 (7.350-7.450); ABG PO2 108.9 mmHg (75.0-100.0); AaDO2 82.3 mmHg; COHb 0.3 % (0.5-1.5); MetHb 0.3 % (0.0-1.5); O2Hb 97.1 % (94.0-97.0); SITE, ABG Right Radial; VENT MODE, BG 3 lpm
[2022-03-28] MEDS: VITAL AF 1.2 1,000 ML BOTTLE GT SCH (11:40)
--- NOTE | 2022-03-28 15:44 | NUR ---
please disregard last abg results. wrong patient. LAB, and charge nurse aware of mistake.
--- NOTE | 2022-03-28 15:57 | NUR ---
ICU/RN PM CARE PROVIDED.PT HAS MULTIPLY BOWEL MOVEMENTS POST LACTULOSE. DUE MEDS ARE GIVEN .SUCTION PROVIDED.REPOSITION FOR COMFORT.
[2022-03-28] MEDS: SOD FERRIC GLUC 125 MG in IV NS 0.9% 100 ML IV SCH (17:01)
--- NOTE | 2022-03-28 19:40 | NUR ---
ICU/RN: SPOKE WITH [facility] TOBAC[facility] SWEEPER. PT UPDATE AND INFORMATION GIVEN.
--- NOTE | 2022-03-28 20:52 | NUR ---
ICU/RN: SPOKE WITH [facility]. PT IS ACCEPTED PENDING BED AVAILABILITY AND BTA AGREEMENT.
--- NOTE | 2022-03-28 21:35 | NUR ---
ICU/RN: PER [facility] NO BED AVAILABILITY FOR TONIGHT.
[2022-03-28 22:14] LABS: BAND % (MANUAL) 5 % (0.0-5.0); LYMPHOCYTES % (MANUAL) 8 % (16-48); MONOCYTES % (MANUAL) 10 % (0-11.0); NEUTROPHILS % (MANUAL) 77 (42-76)
[2022-03-29] VITALS (27 sets, daily range): BP systolic 88–172; BP diastolic 33–100
[2022-03-29] MEDS: BLOOD SUGAR DIAGNOSTIC 1 EACH STRIP IN SCH ×5 (00:33→23:52)
[2022-03-29] MEDS: LACTULOSE 10 G/15 ML UDC (PYXIS) PO SCH ×4 (00:34→17:02)
[2022-03-29] MEDS: INSULIN REGULAR, HUMAN 100 UNIT/ML 3 ML VIAL SQ PRN ×4 (00:37→17:02)
[2022-03-29] MEDS: IV 1/2NS 1000 ML 1,000 ML IV SCH ×3 (00:43→21:35)
[2022-03-29 05:15] LABS: BASOPHILS % (AUTO) 0.4 % (0.0-2.0); HEMATOCRIT 33 % (33-45); HEMOGLOBIN 10.7 g/dL (11.5-14.8); LYMPHOCYTES # (AUTO) 0.3 K/uL (0.8-4.8); LYMPHOCYTES % (AUTO) 3.2 % (20.0-44.0); MEAN CORPUSCULAR HGB CONC 32 g/dl (31.0-36.0); MEAN CORPUSCULAR VOLUME 96 fL (82-100); MONOCYTES # (AUTO) 1.9 K/uL (0.1-1.30); MONOCYTES % (AUTO) 19.7 % (2.0-12.0); NEUTROPHILS # (AUTO) 7.5 K/uL (1.8-8.9); NEUTROPHILS % (AUTO) 76.7 % (43.0-81.0); RED BLOOD CELL COUNT(AUTO) 3.49 MIL/uL (4.0-5.2); WHITE BLOOD COUNT (AUTO) 9.8 K/uL (4.3-11.0)
[2022-03-29 05:41] LABS: ALBUMIN 1.7 g/dL (3.4-5.0); BILIRUBIN,DIRECT 5.3 mg/dL (0.0-0.2); BILIRUBIN,TOTAL 8.1 mg/dL (0.2-1.0); CALCIUM, SERUM 8.3 mg/dL (8.5-10.1); CREATININE 0.7 mg/dL (0.6-1.3); MAGNESIUM 2.2 mg/dL (1.8-2.4); POTASSIUM 3.9 mmol/L (3.5-5.1); TOTAL PROTEIN, SERUM 6.1 g/dL (6.4-8.2)
[2022-03-29 06:32] LABS: PLATELET COUNT (AUTO) 48 K/uL (150-450)
[2022-03-29 06:46] LABS: D-DIMER 13.67 mg/L(FEU (0.17-0.50)
--- NOTE | 2022-03-29 07:30 | NUR ---
RN OPENING NOTE PT OBSERVED IN BED. PT IS OBTUNDED AND ON MECHANICAL VENT WITH ALL PRESCRIBED SETTINGS TOLERATING WELL O2 SAT 100%. PT HAS FC DRAINING URINE TO GRAVITY. NG TUBE IS IN PLACE WITH POSITIVE PLACEMENT. IV ACCESS L UA PICC INFUSING WITH HALF NS @100ML/HR. PT HAS BILATERAL SOFT WRIST RESTRAINTS. BED IS LOCKED IN LOWEST POSITION X2 BED RAILS UP AND ALL HOSPITAL SAFETY MEASURES ARE IN PLACE. WILL CONTINUE TO MONITOR THIS SHIFT.
[2022-03-29 08:06] LABS: IMMUNOGLOBULIN M, SERUM 481 mg/dL (26-217)
[2022-03-29] MEDS: PROPRANOLOL HCL 40 MG TABLET NG SCH ×2 (08:42→20:47)
[2022-03-29] MEDS: RIFAXIMIN 550 MG TABLET PO SCH ×2 (08:42→16:56)
[2022-03-29] MEDS: SPIRONOLACTONE 25 MG TABLET PO SCH (08:43)
[2022-03-29] MEDS: DEXAMETHASONE SOD PHOSPHATE 10 MG/ML VIAL IV SCH (08:43)
[2022-03-29] MEDS: FAMOTIDINE/PF INJ 20 MG/2 ML VIAL IV SCH ×2 (08:43→20:47)
--- NOTE | 2022-03-29 09:00 | NUR ---
RN NOTE: WOUND RIGHT INNER ARM ABRASION. PICTURE TAKEN AND PLACED IN CHART. WOUND CARE CONSULT ORDERED.
--- NOTE | 2022-03-29 09:30 | NUR ---
RN NOTE: BELONGING RIGHT FOOT TOE RING GIVEN TO FATHER AT BEDSIDE.
--- NOTE | 2022-03-29 10:30 | NUR ---
RN NOTE: BELONGINGS THIS NURSE ASKED PTS MOTHER TO TAKE HOME PT BELONGINGS SUCH EARRINGS AND NECKLACE. MOTHER REFUSED AND REQUESTED PT CONTINUE TO WEAR HER 'FAVORITE' EARRINGS IN BOTH EARS AND SILVER NECKLACE.
[2022-03-29] MEDS ORDERED: ACETAMINOPHEN 325 MG TABLET PO ONE (12:00)
[2022-03-29] MEDS ORDERED: diphenhydrAMINE HCL 50 MG/ML VIAL IV ONE (12:00)
--- NOTE | 2022-03-29 13:10 | NUR ---
RN NOTE: BELONGING MOTHER CURRENTLY AT BEDSIDE. RIGHT FOOT TOE RING GIVEN TO MOTHER BY FATHER.
[2022-03-29] MEDS: SOD FERRIC GLUC 125 MG in IV NS 0.9% 100 ML IV SCH (17:01)
[2022-03-29] MEDS ORDERED: PHYTONADIONE INJ 10 MG/1 ML AMPUL SQ ONE (18:00)
--- NOTE | 2022-03-29 19:49 | NUR ---
RN CLOSING NOTE . PT IS OBTUNDED AND ON MECHANICAL VENT WITH ALL PRESCRIBED SETTINGS TOLERATING WELL O2 SAT 100%. PT HAS FC DRAINING URINE TO GRAVITY -1200ML AND HAD 3 BM. NG TUBE IS IN PLACE WITH POSITIVE PLACEMENT NO FEEDING ORDERED AT THIS TIME. IV ACCESS L UA PICC INFUSING WITH HALF NS @100ML/HR. PT HAS BILATERAL SOFT WRIST RESTRAINTS. PT RECEIVED 1 UNIT FFP TOLERATED WELL WITH NO COMPLICATIONS. BED IS LOCKED IN LOWEST POSITION X2 BED RAILS UP AND ALL HOSPITAL SAFETY MEASURES ARE IN PLACE. WILL ENDORSE TO CASE MANAGEMENT SPECIALIST NURSE FOR NINA.
--- NOTE | 2022-03-29 20:00 | NUR ---
Received patient obtunded.Maintained on full vent support with prescribed settings.Saturation wnl.SR/SB 50's.Feverish 100.6 cooling measures done.Bed bath rendered.Incontinent of stools . Kept clean and dry.NPO with NGT clamped and placement verified.IVF infusing well via MOHAN PICC line ,site intact.FC to gravity.No distress noted.Turned and repositioned.
[2022-03-30] VITALS (25 sets, daily range): BP systolic 116–177; BP diastolic 66–97
[2022-03-30] MEDS: LACTULOSE 10 G/15 ML UDC (PYXIS) PO SCH ×5 (00:23→23:17)
--- NOTE | 2022-03-30 01:00 | NUR ---
Patient restless and grimacing.PRN pain medication administered and its effective.
[2022-03-30] MEDS: PROPOFOL 100 ML IV PRN (02:18)
--- NOTE | 2022-03-30 02:18 | NUR ---
Patient restless and agitated.Roman SUTTON community organization director notified with orders and carried out.Diprivan gtt started per protocol.Continue to monitor.
[2022-03-30 05:33] LABS: CALCIUM, SERUM 8.2 mg/dL (8.5-10.1); CREATININE 0.7 mg/dL (0.6-1.3); MAGNESIUM 1.9 mg/dL (1.8-2.4); PHOSPHORUS 3.7 mg/dL (2.5-4.9); POTASSIUM 3.7 mmol/L (3.5-5.1)
[2022-03-30 05:58] LABS: D-DIMER 15.6 mg/L(FEU (0.17-0.50)
[2022-03-30] MEDS: IV 1/2NS 1000 ML 1,000 ML IV SCH ×2 (06:04→17:14)
[2022-03-30] MEDS: BLOOD SUGAR DIAGNOSTIC 1 EACH STRIP IN SCH ×4 (06:07→23:16)
[2022-03-30 06:11] LABS: BASOPHILS % (AUTO) 0.4 % (0.0-2.0); HEMATOCRIT 31 % (33-45); LYMPHOCYTES # (AUTO) 0.4 K/uL (0.8-4.8); LYMPHOCYTES % (AUTO) 5.2 % (20.0-44.0); MEAN CORPUSCULAR HGB CONC 32 g/dl (31.0-36.0); MEAN CORPUSCULAR VOLUME 93 fL (82-100); MONOCYTES # (AUTO) 1.9 K/uL (0.1-1.30); MONOCYTES % (AUTO) 22.4 % (2.0-12.0); NEUTROPHILS # (AUTO) 6.2 K/uL (1.8-8.9); PLATELET COUNT (AUTO) 53 K/uL (150-450); RED BLOOD CELL COUNT(AUTO) 3.34 MIL/uL (4.0-5.2); WHITE BLOOD COUNT (AUTO) 8.7 K/uL (4.3-11.0)
--- NOTE | 2022-03-30 06:30 | NUR ---
Patient resting in no acute distress.On Lactulose had BM X2 during the shift.Kept clean and dry. Turned and repositioned to comfort.BS minitored Q 6 hrs BS <200 no coverage given per order.
--- NOTE | 2022-03-30 07:30 | NUR ---
RN OPENING NOTE PT OBSERVED IN BED WITH HOB >30 DEGREES. PT IS ON MECHANICAL VENT WITH ALL PRESCRIBED SETTINGS TOLERATING WELL O2 SAT 100%. PT HAS FC DRAINING URINE TO GRAVITY. NG TUBE IS IN PLACE WITH POSITIVE PLACEMENT NO FEEDING ORDERED AT THIS TIME. IV ACCESS L UA PICC INFUSING WITH HALF NS @100ML/HR AND DIPRIVAN @15MCG. PT HAS BILATERAL SOFT WRIST RESTRAINTS. BED IS LOCKED IN LOWEST POSITION X2 BED RAILS UP AND ALL HOSPITAL SAFETY MEASURES ARE IN PLACE. WILL CONTINUE TO MONITOR THIS SHIFT.
[2022-03-30] MEDS: DEXAMETHASONE SOD PHOSPHATE 10 MG/ML VIAL IV SCH (08:48)
[2022-03-30] MEDS: PROPRANOLOL HCL 40 MG TABLET NG SCH ×2 (08:48→20:05)
[2022-03-30] MEDS: RIFAXIMIN 550 MG TABLET PO SCH ×2 (08:48→17:11)
[2022-03-30] MEDS: SPIRONOLACTONE 25 MG TABLET PO SCH (08:48)
[2022-03-30] MEDS: FAMOTIDINE/PF INJ 20 MG/2 ML VIAL IV SCH ×2 (08:48→20:05)
[2022-03-30 09:05] LABS: ABG BASE EXCESS -3.7 mmol/L; ABG OXYGEN SATURATION 97.4 % (92.0-98.5); ABG PCO2 26.4 mmHg (35.0-45.0); ABG PH 7.468 (7.350-7.450); ABG PO2 102.5 mmHg (75.0-100.0); AaDO2 80.4 mmHg; COHb 1.4 % (0.5-1.5); MetHb 0.2 % (0.0-1.5); O2Hb 95.8 % (94.0-97.0); SITE, ABG Right Radial; VENT MODE, BG AC 16 400 30% +5
--- NOTE | 2022-03-30 11:00 | NUR ---
RN NOTE: TUBE FEEDING PT HAD GREEN MUCOID DIARRHEA AT THIS TIME; SAMPLE COLLECTED AND SENT TO LAB TO CHECK FOR C. DIFF. PER DR. MILIAN, CONTINUE TO HOLD TUBE FEEDING AT THIS TIME.
[2022-03-30 11:33] LABS: LYMPHOCYTES % (MANUAL) 9 % (16-48); MONOCYTES % (MANUAL) 14 % (0-11.0); NEUTROPHILS % (MANUAL) 77 (42-76)
[2022-03-30] MEDS ORDERED: diphenhydrAMINE HCL 50 MG/ML VIAL IV ONE (15:00)
--- NOTE | 2022-03-30 19:11 | NUR ---
RN CLOSING NOTE PT HANDED OFF TO REHABILITATION TECH NURSE IN BED WITH HOB >30 DEGREES. PT IS ON MECHANICAL VENT WITH ALL PRESCRIBED SETTINGS TOLERATING WELL O2 SAT 100%. PT HAS FC DRAINING URINE TO GRAVITY -1100ML AND 2 BM; GREEN MUCOID DIARRHEA. NG TUBE IS IN PLACE WITH POSITIVE PLACEMENT TUBE FEEDING HELD AT THIS TIME DUE TO GREEN MUCOID DIARRHEA; STOOL SPECIMEN ALREADY SENT TO LAB THIS MORNING. IV ACCESS L UA PICC INFUSING WITH HALF NS @100ML/HR. PT HAS BILATERAL SOFT WRIST RESTRAINTS. BED IS LOCKED IN LOWEST POSITION X2 BED RAILS UP AND ALL HOSPITAL SAFETY MEASURES ARE IN PLACE.
--- NOTE | 2022-03-30 19:24 | NUR ---
RN NOTE PATIENT BLOOD CULTURE RESULTED GR (+) COCCI CLUSTER. INFORMED MARKETING PROFESSIONAL MARY. ORDERED VANCOMYCIN PHARMACY TO DOSE. ORDER TAKEN AND CARRIED OUT. CN MADE AWARE. WILL CONT TO MONITOR.
--- NOTE | 2022-03-30 19:30 | NUR ---
MAILROOM PERSONNEL OPENING NOTE RECEIVED PT IN BED OBTUNDED. PT IS ON MECHANICAL VENT WITH ALL PRESCRIBED SETTINGS TOLERATING WELL O2 SAT 99%. PT HAS FC DRAINING URINE TO GRAVITY WITH RADHA COLORED URINE. NG TUBE IS IN PLACE WITH POSITIVE PLACEMENT, FEEDING STOPPED AT THIS TIME. IV ACCESS MOHAN PICC INFUSING WITH HALF NS @100ML/HR. PT HAS BILATERAL SOFT WRIST RESTRAINTS. BED IS LOCKED AND IN LOWEST POSITION X2 BED RAILS UP AND ALL HOSPITAL SAFETY MEASURES ARE IN PLACE. WILL CONTINUE TO MONITOR THROUGHOUT THE SHIFT.
[2022-03-30] MEDS ORDERED: VANCOMYCIN 1 GM VIAL ONE (19:43)
[2022-03-30] MEDS ORDERED: VANCOMYCIN 1 GM in IV D5W 250ml IV ONE (20:00)
--- NOTE | 2022-03-30 20:48 | NUR ---
RN NOTE NOTED PT WITH FEVER AT 101.8, COOLING MEASURES DONE. INFORMED STOCKBROKING DEALER MARY NO PRN ORDER FOR FEVER. IBUPROFEN 600 MG Q6H FOR FEVER VIA NGT. ORDER TAKEN AND CARRIED OUT, WILL CONT TO MONITOR.
[2022-03-30] MEDS: IBUPROFEN 600 MG TABLET NG PRN (21:03)
--- NOTE | 2022-03-30 21:41 | NUR ---
RN NOTE SPOKE TO KELSIE FROM LAB IN REGARDS TO TRANSFUSE 4 ORDERS OF CRYOPRECIPITATE. SHE SAID BLOOD IS NOT READY AND WILL ONLY BE AVAILABLE FOR EXERCISE SPECIALIST AT [facility]. CN MADE AWARE. PT IN STABLE CONDITION AT THIS TIME. V/S TAKEN AND RECORDED. WILL CONT TO MONITOR.
--- NOTE | 2022-03-30 22:00 | NUR ---
RN NOTE PT TEMPERATURE AT 98.5. WILL CONT TO MONITOR.
[2022-03-30] MEDS: INSULIN REGULAR, HUMAN 100 UNIT/ML 3 ML VIAL SQ PRN (23:19)
[2022-03-31] VITALS (27 sets, daily range): BP systolic 118–162; BP diastolic 73–98
--- NOTE | 2022-03-31 00:45 | NUR ---
RN NOTE CRYOPRECIPITATE BAG #1 STARTED AT THIS TIME, UNABLE TO SCAN BAG, CN OVERRIDE PRODUCT NUMBER. V/S TAKEN AND RECORDED at 97.8, HR 62, RR 17, A41/78, SATING 96%. LAB ([facility]) CALLED TO TRANSFUSE PRODUCT FOR 30 MINS. WILL MONITOR PT.
--- NOTE | 2022-03-31 02:00 | NUR ---
RN NOTE CRYOPRECIPITATE BAG #2 STARTED AT THIS TIME, UNABLE TO SCAN BAG, CN OVERRIDE PRODUCT NUMBER. V/S TAKEN AND RECORDED. PT TOLERATED WELL, WILL CONT TO MONITOR.
[2022-03-31] MEDS: PROPOFOL 100 ML IV PRN (02:14)
--- NOTE | 2022-03-31 02:14 | NUR ---
RN NOTE NOTED PATIENT WITH MODERATE AGITATION, PROPOFOL STARTED AT 5 MCG, CN MADE AWARE. WILL CONT TO MONITOR PATIENT.
--- NOTE | 2022-03-31 03:52 | NUR ---
RN NOTE CRYOPRECIPITATE BAG #3 STARTED AT THIS TIME, CN OVERRIDE PRODUCT NUMBER. V/S TAKEN AND RECORDED. WILL CONT TO MONITOR.
--- NOTE | 2022-03-31 04:46 | NUR ---
RN NOTE CRYOPRECIPITATE BAG #4 (FINAL BAG) STARTED AT THIS TIME, CN OVERRIDE PRODUCT NUMBER. V/S TAKEN AND RECORDED. WILL CONT TO MONITOR.
[2022-03-31 04:57] LABS: BASOPHILS % (AUTO) 0.3 % (0.0-2.0); HEMATOCRIT 28 % (33-45); HEMOGLOBIN 9.1 g/dL (11.5-14.8); LYMPHOCYTES # (AUTO) 0.4 K/uL (0.8-4.8); LYMPHOCYTES % (AUTO) 6.5 % (20.0-44.0); MEAN CORPUSCULAR HGB CONC 32 g/dl (31.0-36.0); MEAN CORPUSCULAR VOLUME 94 fL (82-100); MONOCYTES # (AUTO) 1.6 K/uL (0.1-1.30); MONOCYTES % (AUTO) 25.9 % (2.0-12.0); NEUTROPHILS # (AUTO) 4.1 K/uL (1.8-8.9); NEUTROPHILS % (AUTO) 67.3 % (43.0-81.0); RED BLOOD CELL COUNT(AUTO) 2.97 MIL/uL (4.0-5.2); WHITE BLOOD COUNT (AUTO) 6.1 K/uL (4.3-11.0)
[2022-03-31] MEDS: IV 1/2NS 1000 ML 1,000 ML IV SCH ×2 (05:00→15:09)
[2022-03-31] MEDS: LACTULOSE 10 G/15 ML UDC (PYXIS) PO SCH ×3 (05:05→17:45)
[2022-03-31 05:52] LABS: CALCIUM, SERUM 8.1 mg/dL (8.5-10.1); CREATININE 0.7 mg/dL (0.6-1.3); POTASSIUM 3.9 mmol/L (3.5-5.1)
[2022-03-31 05:58] LABS: MAGNESIUM 1.9 mg/dL (1.8-2.4); PHOSPHORUS 2.7 mg/dL (2.5-4.9)
[2022-03-31 05:59] LABS: D-DIMER 10.22 mg/L(FEU (0.17-0.50)
[2022-03-31 06:24] LABS: PLATELET COUNT (AUTO) 50 K/uL (150-450)
[2022-03-31] MEDS: BLOOD SUGAR DIAGNOSTIC 1 EACH STRIP IN SCH ×3 (06:27→17:45)
[2022-03-31] MEDS: INSULIN REGULAR, HUMAN 100 UNIT/ML 3 ML VIAL SQ PRN ×3 (06:28→18:43)
--- NOTE | 2022-03-31 07:14 | NUR ---
RN NOTE ENDORSED TO AM MANJU TIERNEY RN FOR CONTINUITY OF CARE.
--- NOTE | 2022-03-31 07:30 | NUR ---
RN OPENING NOTE PT OBSERVED IN BED WITH HOB >30 DEGREES. PT IS ON MECHANICAL VENT WITH ALL PRESCRIBED SETTINGS TOLERATING WELL O2 SAT 100%. PT HAS FC DRAINING URINE TO GRAVITY. NG TUBE IS IN PLACE WITH POSITIVE PLACEMENT TUBE FEEDING HELD AT THIS TIME DUE TO GREEN MUCOID DIARRHEA. IV ACCESS L UA PICC INFUSING WITH HALF NS @100ML/HR. PT HAS BILATERAL SOFT WRIST RESTRAINTS. BED IS LOCKED IN LOWEST POSITION X2 BED RAILS UP AND ALL HOSPITAL SAFETY MEASURES ARE IN PLACE. WILL CONTINUE TO MONITOR THIS SHIFT.
--- NOTE | 2022-03-31 08:17 | NUR ---
WOUND CARE CONSULT: PT PRESENTS WITH JAUNDICED SKIN WHICH IS FRAGILE, SACRAL DEEP TISSUE INJURY AND RT ANKLE DISCOLORATION/DRY ABRASION, PRESENT ON ADMISSION. SKIN TEAR NOTED TO RT UPPER ARM. DISCUSSED WOUND CARE AND SKIN PROTECTION WITH NURSING STAFF. FIRST STEP LOW AIRLOSS MATTRESS ORDERED. DISCUSSED WITH CLUTCH MECHANIC. MD IN AGREEMENT WITH PLAN OF CARE. Addendum: 03/31/22 at 0819 by JOHNSON DALE WNDNU Amended: Links added.
[2022-03-31 08:22] LABS: LYMPHOCYTES % (MANUAL) 7 % (16-48); MONOCYTES % (MANUAL) 25 % (0-11.0); NEUTROPHILS % (MANUAL) 68 (42-76)
[2022-03-31] MEDS: RIFAXIMIN 550 MG TABLET PO SCH ×2 (08:34→17:45)
[2022-03-31] MEDS: DEXAMETHASONE SOD PHOSPHATE 10 MG/ML VIAL IV SCH (08:34)
[2022-03-31] MEDS: SPIRONOLACTONE 25 MG TABLET PO SCH (08:34)
[2022-03-31] MEDS: FAMOTIDINE/PF INJ 20 MG/2 ML VIAL IV SCH ×2 (08:34→20:17)
[2022-03-31] MEDS: PROPRANOLOL HCL 40 MG TABLET NG SCH ×2 (08:35→20:14)
[2022-03-31] MEDS: VANCOMYCIN 0.75 GM in IV D5W 250 ML IV SCH ×2 (08:44→19:16)
[2022-03-31] MEDS ORDERED: IV NS 0.9% 250 ML IV PRN (09:30)
[2022-03-31 10:44] LABS: ABG BASE EXCESS -2.1 mmol/L; ABG PCO2 29.2 mmHg (35.0-45.0); ABG PO2 119.1 mmHg (75.0-100.0); AaDO2 60.5 mmHg; COHb 0.4 % (0.5-1.5); MetHb 0.1 % (0.0-1.5); O2Hb 97.5 % (94.0-97.0); SITE, ABG Right Radial
--- NOTE | 2022-03-31 11:00 | NUR ---
RN NOTE: EXTUBATION PT EXTUBATED AND PASSED BEDSIDE NURSING SWALLOW EVAL. WILL CONTINUE TO MONITOR.
[2022-04-01] VITALS (24 sets, daily range): BP systolic 96–170; BP diastolic 60–96
[2022-04-01] MEDS: BLOOD SUGAR DIAGNOSTIC 1 EACH STRIP IN SCH ×5 (00:24→23:10)
[2022-04-01] MEDS: LACTULOSE 10 G/15 ML UDC (PYXIS) PO SCH ×5 (00:25→23:52)
[2022-04-01] MEDS: INSULIN REGULAR, HUMAN 100 UNIT/ML 3 ML VIAL SQ PRN ×5 (00:34→23:11)
[2022-04-01] MEDS: IV 1/2NS 1000 ML 1,000 ML IV SCH ×3 (02:23→20:36)
[2022-04-01 04:16] LABS: BASOPHILS % (AUTO) 0.3 % (0.0-2.0); HEMATOCRIT 26 % (33-45); HEMOGLOBIN 8.5 g/dL (11.5-14.8); LYMPHOCYTES # (AUTO) 0.2 K/uL (0.8-4.8); MEAN CORPUSCULAR HGB CONC 32 g/dl (31.0-36.0); MEAN CORPUSCULAR VOLUME 95 fL (82-100); MONOCYTES % (AUTO) 21.1 % (2.0-12.0); NEUTROPHILS # (AUTO) 3.6 K/uL (1.8-8.9); NEUTROPHILS % (AUTO) 73.6 % (43.0-81.0); RED BLOOD CELL COUNT(AUTO) 2.77 MIL/uL (4.0-5.2); WHITE BLOOD COUNT (AUTO) 4.9 K/uL (4.3-11.0)
[2022-04-01 04:35] LABS: PLATELET COUNT (AUTO) 40 K/uL (150-450)
[2022-04-01 04:39] LABS: CALCIUM, SERUM 8.4 mg/dL (8.5-10.1); CREATININE 0.6 mg/dL (0.6-1.3); MAGNESIUM 1.8 mg/dL (1.8-2.4); PHOSPHORUS 2.3 mg/dL (2.5-4.9); POTASSIUM 3.6 mmol/L (3.5-5.1)
[2022-04-01 04:41] LABS: ALBUMIN 1.8 g/dL (3.4-5.0); BILIRUBIN,DIRECT 6.4 mg/dL (0.0-0.2); TOTAL PROTEIN, SERUM 5.7 g/dL (6.4-8.2)
[2022-04-01 05:32] LABS: BASOPHILS % (MANUAL) 0 % (0.0-2.0); EOSINOPHILS % (MANUAL) 0 % (0-4); LYMPHOCYTES % (MANUAL) 8 % (16-48); MONOCYTES % (MANUAL) 16 % (0-11.0); NEUTROPHILS % (MANUAL) 76 (42-76)
--- NOTE | 2022-04-01 07:05 | NUR ---
DAIRY PROCESSING SUPERVISOR OPENING NOTE: RECEIVED PT. IN BED, AWAKE, AOX1, TO SELF ONLY, STILL CONFUSED BUT ABLE TO FOLLOW COMMANDS AND MAKE NEED KNOWN. NO COMPLAINTS OF PAIN/DISCOMFORT. ON 02 VIA NASAL CANNULA AT 5L/MIN, SATURATING AT 100% AT THIS TIME. TEMPERATURE INSPECTOR READS SINUS SANYA WITH HR OF 47 BPM AT THIS TIME. NO COMPLAINTS OF DIZZINESS , BP STABLE AT THIS TIME. MULTIPLE SKIN ISSUES NOTED INCLUDING A LEFT ARM BRUISE, WILL DO WOUND TREATMENT/RECOMMENDATIONS ORDERED. ON MILLER CATH WITH RADHA URINE WITH SEDIMENTS NOTED, DRAINING VIA GRAVITY BELOW BLADDER. IV ACCESS ON MOHAN PICC, PATENT WITH 1/2 NS RUNNING AT 100 ML/HR. IV DRESSING C/D/I WITH NO S/S OF INFILTRATION. SAFETY MEASURES IN PLACE: BED IN LOWEST & LOCKED POSITION, HOB ELEVATED AT 30 DEGREES, BED ALARM ON, CALL LIGHT WITHIN REACH. WILL TURN AND REPOSITION AT LEAST Q2H AND CONTINUE TO MONITOR FOR ANY CHANGES.
[2022-04-01] MEDS: VANCOMYCIN 0.75 GM in IV D5W 250 ML IV SCH ×3 (07:41→23:51)
--- NOTE | 2022-04-01 07:41 | NUR ---
RN CLOSING NOTE PT OBSERVED IN BED WITH HOB >30 DEGREES. PT WAS EXTUBATED AND IS NO ON NC 5L TOLEARTING WELL O2 SAT 100%. PT HAS FC DRAINING URINE TO GRAVITY PT HAD 6 BM DURING BOTH SHIFTS. PT IS ON CLEAR LIQUID DIET. IV ACCESS L UA PICC INFUSING WITH HALF NS @100ML/HR. PT HAS BILATERAL SOFT WRIST RESTRAINTS. BED IS LOCKED IN LOWEST POSITION X2 BED RAILS UP AND ALL HOSPITAL SAFETY MEASURES ARE IN PLACE. WILL CONTINUE TO MONITOR THIS SHIFT. Addendum: 04/01/22 at 0743 by KELSY DAVIS RN RN CLOSING NOTE PT OBSERVED IN BED WITH HOB >30 DEGREES. PT WAS EXTUBATED AND IS NO ON NC 5L TOLEARTING WELL O2 SAT 100%. PT HAS FC DRAINING URINE TO GRAVITY PT HAD 6 BM DURING BOTH SHIFTS. PT IS ON CLEAR LIQUID DIET. IV ACCESS L UA PICC INFUSING WITH HALF NS @100ML/HR. PT HAS BILATERAL SOFT WRIST RESTRAINTS. BED IS LOCKED IN LOWEST POSITION X2 BED RAILS UP AND ALL HOSPITAL SAFETY MEASURES ARE IN PLACE. WILL ENDORSE TO DAY SHIFT NURSE FOR NINA.
[2022-04-01 07:54] LABS: D-DIMER 11.19 mg/L(FEU (0.17-0.50)
[2022-04-01] MEDS: PROPRANOLOL HCL 40 MG TABLET NG SCH ×2 (09:00→21:00)
[2022-04-01] MEDS: FAMOTIDINE/PF INJ 20 MG/2 ML VIAL IV SCH ×2 (09:37→20:36)
[2022-04-01] MEDS: DEXAMETHASONE SOD PHOSPHATE 10 MG/ML VIAL IV SCH (09:38)
[2022-04-01] MEDS ORDERED: NEUTRA PHOS 1 POWD.PACKET NG ONE (10:00)
[2022-04-01] MEDS: RIFAXIMIN 550 MG TABLET PO SCH ×2 (10:51→18:10)
[2022-04-01] MEDS: SPIRONOLACTONE 25 MG TABLET PO SCH (10:51)
[2022-04-01] MEDS ORDERED: GLUCERNA SHAKE 237 ML CAN PO ONE (12:00)
[2022-04-01] MEDS: VITAL AF 1.2 1,000 ML BOTTLE GT SCH (12:13)
--- NOTE | 2022-04-01 12:25 | NUR ---
WOOD HEEL ATTACHER NOTE: GLUCERNA WILL BE HELD. TUBE FEEDING OF VITAL AF 1.2 @ 30ML/HR STARTED VIA NG TUBE. NO GASTRIC RESIDUAL NOTED. WILL CONTINUE TO MONITOR FOR S/S OF ASPIRATION.
--- NOTE | 2022-04-01 12:30 | NUR ---
AEROSPACE CONTROL AND WARNING SYSTEMS NOTE: PT. WAS COUGHING AFTER A FEW SIPS OF WATER IN THE AM, WAS PUT ON NPO EXCEPT ICE CHIPS. NG TUBE INSERTED ON R NARE, PLACEMENT CONFIRMED BY X-RAY. TUBE FEEDING STARTED WITH VITAL AF 1.2 RUNNING AT 30ML/HR X 24HRS PER HOSPITALIST. NO GASTRIC RESIDUAL NOTED. PT. TOLERATING TUBE FEEDING WELL. PT. ALSO NOW ON SOFT BILATERAL WRIST RESTRAINTS BECAUSE PT. TRYING TO REACH FOR THE NG-TUBE. LEAST RESTRICTIVE RESTRAINTS/DISTRACTION AND EDUCATION DONE FIRST BUT NOT EFFECTIVE. PT. STILL CONFUSED. PALPABLE PULSES AND CAP REFILL < 3 SECS NOTED ON ALL EXTREMITIES. WILL CONTINUE TO MONITOR FOR ANY CHANGES.
[2022-04-01 15:07] LABS: ABG BASE EXCESS 0.1 mmol/L; ABG OXYGEN SATURATION 96.1 % (92.0-98.5); ABG PH 7.507 (7.350-7.450); ABG PO2 85.9 mmHg (75.0-100.0); AaDO2 108.3 mmHg; COHb 0.4 % (0.5-1.5); O2Hb 95.7 % (94.0-97.0); SITE, ABG Right Radial; VENT MODE, BG 3L NC
[2022-04-01] MEDS: IPRATROPIUM NEB FS 0.5 MG/2.5 ML AMPUL.NEB NEB SCH ×3 (15:30→23:14)
[2022-04-01] MEDS: ALBUTEROL HALF STRENGTH 1.25 MG/3 ML VIAL.NEB NEB SCH ×3 (15:31→23:14)
--- NOTE | 2022-04-01 19:20 | NUR ---
[employer] TR[employer] DRIVER CLOSING NOTE: PT. REMAINS IN BED, AWAKE, AOX1, TO SELF ONLY, STILL CONFUSED BUT MORE ALERT THIS TIME COMPARED TO THIS AM. ABLE TO FOLLOW COMMANDS AND MAKE NEEDS KNOWN. NO COMPLAINTS OF PAIN/DISCOMFORT THROUGHOUT SHIFT. ON 02 VIA NASAL CANNULA AT 5L/MIN, SATURATING AT 92% AT THIS TIME. MONITORING MANAGER READS SINUS SANYA THIS WHOLE SHIFT WITH HR OF 49 BPM AT THIS TIME. NO COMPLAINTS OF DIZZINESS , BP STABLE THROUGHOUT SHIFT. SKIN PROTECTION MEASURES AND WOUND TREATMENT DONE ORDERED. ON MILLER CATH WITH RADHA URINE WITH SEDIMENTS NOTED, TOTAL OUTPUT OF 2,000 ML THIS SHIFT. 2 LIQUIDY STOOL THIS SHIFT, NO MELENA NOTED. IV ACCESS ON MOHAN PICC, PATENT WITH 1/2 NS RUNNING AT 100 ML/HR. IV DRESSING C/D/I WITH NO S/S OF INFILTRATION. PT. STILL WAITING FOR BED IN [facility]. UPDATE GIVEN TO [facility] THIS AM. SAFETY MEASURES MAINTAINED: BED IN LOWEST & LOCKED POSITION, HOB ELEVATED AT 30 DEGREES, BED ALARM ON, CALL LIGHT WITHIN REACH. TURNED AND REPOSITIONED AT LEAST Q2H. ENDORSED CONTINUITY OF CARE TO POURED CONCRETE WALL TECHNICIAN RN.
--- NOTE | 2022-04-01 20:08 | NUR ---
RN NOTE PT AWAKE, ORIENTED TO SELF WITH SOME CONFUSION, PT DAD AT BEDSIDE. PT RECEIVING BREATHING TX AT THIS TIME, NO SIGNS OF DISTRESS. NGT IN PLACE, NO RESIDUALS NOTED ON VITAL AF AT 30ML/HR. FC IN PLACE DRAINING URINE BY GRAVITY. ALL SAFETY MEASURES IN PLACE. WILL CONTINUE TO MONITOR.
--- NOTE | 2022-04-01 20:20 | NUR ---
RN NOTE DONE WITH BREATHING TX. RT TITRATED O2 AT 3L VIA NC. O2 SAT AT 100%. WILL CONTINUE TO MONITOR.
--- NOTE | 2022-04-01 21:26 | NUR ---
RN NOTE HELD PROPRANOLOL. HR 53. WILL CONTINUE TO MONITOR.
[2022-04-02] VITALS (16 sets, daily range): BP systolic 106–155; BP diastolic 66–87
[2022-04-02] MEDS: IPRATROPIUM NEB FS 0.5 MG/2.5 ML AMPUL.NEB NEB SCH ×6 (03:55→23:30)
[2022-04-02] MEDS: ALBUTEROL HALF STRENGTH 1.25 MG/3 ML VIAL.NEB NEB SCH ×6 (03:56→23:30)
[2022-04-02 04:08] LABS: BASOPHILS % (AUTO) 0.4 % (0.0-2.0); HEMATOCRIT 30 % (33-45); HEMOGLOBIN 9.6 g/dL (11.5-14.8); LYMPHOCYTES # (AUTO) 0.2 K/uL (0.8-4.8); LYMPHOCYTES % (AUTO) 2.7 % (20.0-44.0); MEAN CORPUSCULAR HGB CONC 33 g/dl (31.0-36.0); MEAN CORPUSCULAR VOLUME 94 fL (82-100); MONOCYTES # (AUTO) 1.3 K/uL (0.1-1.30); MONOCYTES % (AUTO) 16.8 % (2.0-12.0); NEUTROPHILS # (AUTO) 6.1 K/uL (1.8-8.9); NEUTROPHILS % (AUTO) 80.1 % (43.0-81.0); PLATELET COUNT (AUTO) 56 K/uL (150-450); RED BLOOD CELL COUNT(AUTO) 3.15 MIL/uL (4.0-5.2); WHITE BLOOD COUNT (AUTO) 7.7 K/uL (4.3-11.0)
[2022-04-02 04:35] LABS: CALCIUM, SERUM 8.1 mg/dL (8.5-10.1); CREATININE 0.7 mg/dL (0.6-1.3); POTASSIUM 3.6 mmol/L (3.5-5.1)
[2022-04-02] MEDS: BLOOD SUGAR DIAGNOSTIC 1 EACH STRIP IN SCH ×3 (06:10→17:33)
[2022-04-02] MEDS: LACTULOSE 10 G/15 ML UDC (PYXIS) PO SCH ×3 (06:10→17:27)
[2022-04-02] MEDS: INSULIN REGULAR, HUMAN 100 UNIT/ML 3 ML VIAL SQ PRN ×3 (06:11→17:35)
[2022-04-02] MEDS: IV 1/2NS 1000 ML 1,000 ML IV SCH (06:17)
--- NOTE | 2022-04-02 07:05 | NUR ---
[employer] OFFICER OPENING NOTE: RECEIVED PT. IN BED, AWAKE, AOX1, TO SELF ONLY, STILL CONFUSED BUT ABLE TO FOLLOW COMMANDS AND MAKE NEED KNOWN. NO COMPLAINTS OF PAIN/DISCOMFORT. ON 02 VIA NASAL CANNULA AT 2L/MIN, SATURATING AT 99% AT THIS TIME. LEGAL INVESTIGATOR READS SINUS SANYA WITH HR OF 57 BPM AT THIS TIME. NO COMPLAINTS OF DIZZINESS. MULTIPLE SKIN ISSUES NOTED INCLUDING A LEFT ARM BRUISE, WILL DO WOUND TREATMENT/RECOMMENDATIONS ORDERED. ON IMLLER CATH WITH RADHA URINE WITH SEDIMENTS NOTED, DRAINING VIA GRAVITY BELOW BLADDER. IV ACCESS ON MOHAN PICC, PATENT WITH 1/2 NS RUNNING AT 100 ML/HR. IV DRESSING C/D/I WITH NO S/S OF INFILTRATION. SAFETY MEASURES IN PLACE: BED IN LOWEST & LOCKED POSITION, HOB ELEVATED AT 30 DEGREES, BED ALARM ON, CALL LIGHT WITHIN REACH. WILL TURN AND REPOSITION AT LEAST Q2H AND CONTINUE TO MONITOR FOR ANY CHANGES.
[2022-04-02] MEDS: VANCOMYCIN 0.75 GM in IV D5W 250 ML IV SCH ×2 (07:42→16:13)
--- NOTE | 2022-04-02 07:49 | NUR ---
RN CLOSING NOTES PT O2 NOW AT 2L. TOLERATING, NO SIGNS OF DISTRESS. PT DENIES ANY SOB OR PAIN. SPO2 AT 99%. PT TOLERATING GT FEEDING NO RESIDUALS NOTED. KEPT HOB ELEVATED. 3X BM NOTED ON SHIFT. CARE RENDERED, ADEQUATE AMOUNT OF URINE OUTPUT. CONTINUE WITH IVFLUIDS, INFUSING WELL, PICC LINE PATENT AND INTACT NO S/SX OF INFECTION NOTED. ENDORSED TO AM SHIFT NURSE FOR NINA,
[2022-04-02] MEDS: RIFAXIMIN 550 MG TABLET PO SCH ×2 (08:50→16:36)
[2022-04-02] MEDS: PROPRANOLOL HCL 40 MG TABLET NG SCH ×2 (08:50→21:38)
[2022-04-02] MEDS: FAMOTIDINE/PF INJ 20 MG/2 ML VIAL IV SCH ×2 (08:50→21:37)
[2022-04-02] MEDS: SPIRONOLACTONE 25 MG TABLET PO SCH (08:51)
--- NOTE | 2022-04-02 10:53 | NUR ---
Tx to [facility] 117-1. Report given to receiving DAYSI [place]. Pt transported to [facility] via bed with monitor en route. Pt stable upon transfer
--- NOTE | 2022-04-02 11:10 | NUR ---
RN NOTE PATIENT IS TRANSFERRED FROM THE ICU .PATIENT IS ALERT , ORIENTED TIMES 3 , AGITATED AND ANXIOUS .PATIENT IS ON 2L OF O2 VIA N/C, O 2 SAT 96 %, HR 72 SR ON MONITOR .PATIENT HAS MILLER CATH IN PLACE DRANING CLEAR YELLOW URINE .PATIENT HAS NG TUBE , SWALLOW EVAL WAS DONE , ORDER TO START PATIENT ON SOFT DIET RECEIVED..PATIENT HAS IV ACCESS MOHAN PICC LINE 1/2 NS RUNNUNG AT 100 ML/HR WILL CONTINUE TO MONITOR
[2022-04-02 14:42] LABS: BAND % (MANUAL) 10 % (0.0-5.0); LYMPHOCYTES % (MANUAL) 2 % (16-48); MONOCYTES % (MANUAL) 15 % (0-11.0); MYELOCYTES % 1 % (0-0); NEUTROPHILS % (MANUAL) 72 (42-76)
[2022-04-02] MEDS: ONDANSETRON HCL/PF 4 MG/2 ML VIAL IVP PRN (16:45)
--- NOTE | 2022-04-02 18:29 | NUR ---
RN CLOSING NOTE PATIENT IN BED SLEEPY , WAS ABLE TO CONSUME SOFT DIET FOOD BY MOUTH , POOR APPETITE , NG TUBE IN PLACE .PATIENT IS ON O2 2L VIA N/C , BREATHING NON LABORED NO SIGHS OF DISTRESS, O2 SAT 97 %.PATIENT HAS BILATERAL SOFT WRIST RESTRAIN ACTIVE ORDER BUT PRESENTLY NOT RESTRAINED.PATIENT HAS NEGRA PICC LINE INTACT AND FLUSHING FREELY.MILLER CATH IN PLACE DARNING DARK YELLOW URINE , ALL DUE MEDICATION GIVEN , ALL SAFETY MEASURES OBSERVED , BED IN AT LOWEST POSITION , BED SIDE RAILS ARE UP, CALL LIGHT WITHIN REACH , WILL ENDORSE ENGINEER SOILS NUTSE TO FALLOW POC
--- NOTE | 2022-04-02 19:30 | NUR ---
RECEIVED PT. IN BED, AWAKE, AOX1, WITH RELATIVE AT BEDSIDE, STILL CONFUSED BUT ABLE TO FOLLOW COMMANDS AND MAKE NEED KNOWN. ON 02 VIA NASAL CANNULA AT 2L/MIN, SATURATING AT 97% AT THIS TIME. WAREHOUSE WORKER 2ND SHIFT IN PLACE. ON MILLER CATH WITH RADHA URINE WITH SEDIMENTS NOTED, DRAINING VIA GRAVITY IV ACCESS ON NEGRA PICC IN PLACE. SAFETY MEASURES IN PLACE: BED IN LOWEST & LOCKED POSITION, HOB ELEVATED AT 30 DEGREES, BED ALARM ON, CALL LIGHT WITHIN REACH. WILL CONTINUE PLAN OF CARE.
[2022-04-03] VITALS: BP 125/73
[2022-04-03] MEDS: BLOOD SUGAR DIAGNOSTIC 1 EACH STRIP IN SCH ×5 (00:11→23:51)
[2022-04-03] MEDS: LACTULOSE 10 G/15 ML UDC (PYXIS) PO SCH ×4 (00:16→17:07)
[2022-04-03] MEDS: VANCOMYCIN 0.75 GM in IV D5W 250 ML IV SCH ×2 (00:17→08:00)
[2022-04-03] MEDS: INSULIN REGULAR, HUMAN 100 UNIT/ML 3 ML VIAL SQ PRN ×5 (00:19→23:54)
[2022-04-03] MEDS: ALBUTEROL HALF STRENGTH 1.25 MG/3 ML VIAL.NEB NEB SCH ×6 (03:22→23:46)
[2022-04-03] MEDS: IPRATROPIUM NEB FS 0.5 MG/2.5 ML AMPUL.NEB NEB SCH ×6 (03:22→23:46)
[2022-04-03 04:00] VITALS: BP 116/66
--- NOTE | 2022-04-03 07:00 | NUR ---
PATIENT IN BED SLEEPY, WAS ABLE TO CONSUME SOFT DIET FOOD BY MOUTH , POOR APPETITE , NG TUBE IN PLACE. PATIENT IS ON O2 2L VIA N/C , BREATHING NON LABORED NO SIGHS OF DISTRESS, O2 SAT 97 %. PATIENT HAS BILATERAL SOFT WRIST RESTRAIN ACTIVE ORDER BUT PRESENTLY NOT RESTRAINED. PATIENT HAS NEGRA PICC LINE INTACT AND FLUSHING FREELY.MILLER CATH IN PLACE DARNING DARK YELLOW URINE , ALL DUE MEDICATION GIVEN , ALL SAFETY MEASURES OBSERVED , BED IN AT LOWEST POSITION , BED SIDE RAILS ARE UP, CALL LIGHT WITHIN REACH , WILL ENDORSE TO NEXT SHIFT NURSE FOR CONTINUITY OF CARE.
--- NOTE | 2022-04-03 07:40 | NUR ---
RN OPENING NOTE RECEIVED PT IN BED SLEEPY, EASILY AROUSABLE. NG TUBE IN PLACE. PT ON 2 L NC TOLERATING WELL. NO SIGNS OF PAIN OR DISCOMFORT. PT HAS BILATERAL SOFT WRIST RESTRAINTS ACTIVE ORDER, BUT PT DOES NOT SHOW BEHAVIOR CURRENTLY OF PULLING ON NG TUBE. PT HAS NEGRA PICC LINE., INTACT, PATENT AND FLUSHING WELL. MILLER CATH IN PLACE DRAINING RADHA/YELLOW COLOR OUTPUT. ALL SAFETY MEASURES IN PLACE. CALL LIGHT WITHIN REACH. BED LOCKED AT LOWEST POSITION. SIDE RAILS UP X2. HEAD OF BED ELEVATED DUE TO STRICT ASPIRATION PRECAITION.
[2022-04-03 07:53] LABS: D-DIMER 20.87 mg/L(FEU (0.17-0.50)
[2022-04-03 08:00] VITALS: BP 119/76
[2022-04-03 08:17] LABS: ALBUMIN 1.7 g/dL (3.4-5.0); BILIRUBIN,DIRECT 6.5 mg/dL (0.0-0.2); BILIRUBIN,TOTAL 10.4 mg/dL (0.2-1.0); CALCIUM, SERUM 8.6 mg/dL (8.5-10.1); CREATININE 0.7 mg/dL (0.6-1.3); POTASSIUM 3.3 mmol/L (3.5-5.1); TOTAL PROTEIN, SERUM 5.9 g/dL (6.4-8.2)
--- NOTE | 2022-04-03 08:30 | NUR ---
RN NOTE NOTIFIED [facility]ACTICE NURSE PSYCHOTHERAPIST JOSE ARREOLA THAT PLT 50.NO NEW ORDERS GIVEN
[2022-04-03] MEDS: RIFAXIMIN 550 MG TABLET PO SCH ×2 (09:43→16:52)
[2022-04-03] MEDS: PROPRANOLOL HCL 40 MG TABLET NG SCH ×2 (09:43→21:21)
[2022-04-03] MEDS: SPIRONOLACTONE 25 MG TABLET PO SCH (09:43)
[2022-04-03] MEDS: FAMOTIDINE/PF INJ 20 MG/2 ML VIAL IV SCH (09:43)
[2022-04-03 10:02] LABS: BASOPHILS # (AUTO) 0.1 K/uL (0.0-0.2); BASOPHILS % (AUTO) 0.4 % (0.0-2.0); HEMATOCRIT 33 % (33-45); HEMOGLOBIN 10.6 g/dL (11.5-14.8); LYMPHOCYTES # (AUTO) 0.2 K/uL (0.8-4.8); LYMPHOCYTES % (AUTO) 1.7 % (20.0-44.0); MEAN CORPUSCULAR HGB CONC 33 g/dl (31.0-36.0); MEAN CORPUSCULAR VOLUME 98 fL (82-100); MONOCYTES # (AUTO) 1.1 K/uL (0.1-1.30); MONOCYTES % (AUTO) 8.2 % (2.0-12.0); NEUTROPHILS % (AUTO) 89.7 % (43.0-81.0); PLATELET COUNT (AUTO) 53 K/uL (150-450); RED BLOOD CELL COUNT(AUTO) 3.34 MIL/uL (4.0-5.2); WHITE BLOOD COUNT (AUTO) 13.4 K/uL (4.3-11.0)
[2022-04-03] MEDS ORDERED: POTASSIUM CHLORIDE 20 MEQ TAB.PRT.SR PO ONE (11:00)
[2022-04-03 12:00] VITALS: BP 131/80
[2022-04-03] MEDS ORDERED: POTASSIUM CHLORIDE 20 MEQ POWDER PACKET PO ONE (12:30)
--- NOTE | 2022-04-03 14:00 | NUR ---
RN NOTE SPOKE WITH MAMIE AT [facility] L[facility] TRANSPLANT PROVIDED RESULTS OF LAB WORK.AND UPDATES
[2022-04-03] MEDS ORDERED: diphenhydrAMINE HCL 50 MG/ML VIAL IV ONE (15:30)
[2022-04-03 16:00] VITALS: BP 116/66
[2022-04-03] MEDS: IBUPROFEN 600 MG TABLET NG PRN (16:52)
--- NOTE | 2022-04-03 18:50 | NUR ---
RN NOTE PT PULLED OUT NG TUBE R NARES.
--- NOTE | 2022-04-03 19:30 | NUR ---
RN NOTES RECEIVED PT FOR CONTINUITY OF CARE. PATIENT A/OX2; CONFUSED IN NO S/SX OF ACUTE DISTRESS AT THIS TIME; CURRENTLY ON 2L OF 02 VIA NC; WITH 02 SAT >95% AT THIS TIME.WITH IV ACCESS ON L UA MIDLINE PATENT, INTACT AND FLUSHING WELL. WITH NGT ON L NARE SECURED AND INTACT, PLACEMENT VERIFIED VIA AUSCULTATION AND BY XR; CLAMPED. WITH BILATERAL SOFT RESTRAINTS IN PLACED, MONITORED AND ASSESSED PER PROTOCOL. WILL ENSURE SAFETY MEASURES WITHIN THE SHIFT. PATIENT BED ALARM IS ON. HEAD OF BED ELEVATED. BED IS LOCKED, IN LOWEST POSITION AND SIDE RAILS UP. CALL LIGHT WITHIN REACH OF THE PATIENT. WILL CONTINUE TO MONITOR AND REASSESS FOR ANY CHANGES AND WILL CARRY OUT ANY ONGOING AND ACTIVE MD ORDER.
--- NOTE | 2022-04-03 19:45 | NUR ---
RN NOTE PLACE NEW NG TUBE ON LEFT NARES. STAT CHEST XRAY ORDERED
[2022-04-03 20:00] VITALS: BP 125/79
--- NOTE | 2022-04-03 20:47 | NUR ---
RN CLOSING NOTE PT IN BED SLEEPY,SEMI FOWLERS POSITION BUT EASILY AROUSABLE. NG TUBE IN PLACE. PT ON 2 L NC TOLERATING WELL. NO SIGNS OF PAIN OR DISCOMFORT. PT HAS BILATERAL SOFT WRIST RESTRAINTS. PLACED RESTRAINTS BACK ON DUE TO PT PULLING OUT HER NG TUBE PREVIOUSLY. NO SKIN OR CIRCULATION ISSUES NOTED AT THIS TIME. PT HAS NEGRA PICC LINE., INTACT, PATENT AND FLUSHING WELL. MILLER CATH IN PLACE DRAINING RADHA/YELLOW COLOR OUTPUT. ALL SAFETY MEASURES IN PLACE. CALL LIGHT WITHIN REACH. BED LOCKED AT LOWEST POSITION. SIDE RAILS UP X2. HEAD OF BED ELEVATED DUE TO STRICT ASPIRATION PRECAUTION.
[2022-04-03] MEDS: FAMOTIDINE (20 MG) 20 MG TABLET PO SCH (21:21)
--- NOTE | 2022-04-03 23:01 | NUR ---
RN NOTES Spoke to Yeni from [facility]; no bed available serg however, wanted to follow up on transfer agreement form that was faxed to KARTHIK Álvarez; also need d/c summary. Endorsed to primary RN Sanya to endorse to AM RN to follow up
[2022-04-04] VITALS: BP 128/74
[2022-04-04] MEDS: LACTULOSE 10 G/15 ML UDC (PYXIS) PO SCH ×5 (00:45→23:48)
--- NOTE | 2022-04-04 01:40 | NUR ---
RT PT RECVD AWAKE AND VERBAL ON ROOM AIR. NO SOB OR RESPIRATORY DISTRESS NOTED. NEB TX GIVEN AND MARIPOSA WELL. PT PUT BACK ON 2 LPM NC POST TX. SPO2 >92% MAINTAINED.
[2022-04-04 02:26] LABS: BAND % (MANUAL) 10 % (0.0-5.0); LYMPHOCYTES % (MANUAL) 1 % (16-48); MONOCYTES % (MANUAL) 3 % (0-11.0); NEUTROPHILS % (MANUAL) 86 (42-76)
[2022-04-04] MEDS: IPRATROPIUM NEB FS 0.5 MG/2.5 ML AMPUL.NEB NEB SCH ×5 (03:45→20:58)
[2022-04-04] MEDS: ALBUTEROL HALF STRENGTH 1.25 MG/3 ML VIAL.NEB NEB SCH ×5 (03:46→20:58)
[2022-04-04 04:00] VITALS: BP_SYST 126; BP_SYST 148; BP_DIAS 63; BP_DIAS 89
--- NOTE | 2022-04-04 04:00 | NUR ---
RN CLOSING NOTE: PATIENT REMAINS IN ROOM IN NO SIGNS OF RESPIRATORY DISTRESS, PATIENT STILL ON 2L OF 02 VIA NC ;TOLERATING WELL SATURATING @ >95% SP02. SAFETY MEASURES IMPLEMENTED, BED IN LOWEST POSITION, LOCKED, SIDE RAILS UP, CALL LIGHT WITHIN REACH. ALL NEEDS AND ORDERS ADDRESSED DURING THE SHIFT. IV ACCESS MAINTAINED INTACT, SECURED AND FLUSHING WELL. ALL DUE MEDS GIVEN ORDERED & SCHEDULED ; PATIENT TOLERATED WELL. PATIENT KEPT CLEAN AND COMFORTABLE WITHIN THE SHIFT. PATIENT ENDORSED TO INCOMING SHIFT RN WITH STABLE VITAL SIGN AND FOR CONTINUITY OF CARE.
--- NOTE | 2022-04-04 04:00 | NUR ---
RN NOTES PATIENT REMAINED TO BE IN NO SIGNS OF ACUTE RESPIRATORY DISTRESS , SAFE ENVIRONMENT MAINTAINED FOR PT. AM PATIENT CARE ASSISTANCE RENDERED. WILL CONTINUE TO MONITOR AND REASSESS FOR ANY CHANGES THROUGHOUT THE SHIFT.
[2022-04-04] MEDS: BLOOD SUGAR DIAGNOSTIC 1 EACH STRIP IN SCH ×4 (06:11→23:48)
[2022-04-04] MEDS: INSULIN REGULAR, HUMAN 100 UNIT/ML 3 ML VIAL SQ PRN ×3 (06:12→23:50)
[2022-04-04 07:26] LABS: BILIRUBIN,TOTAL 9.5 mg/dL (0.2-1.0); CALCIUM, SERUM 7.9 mg/dL (8.5-10.1); CREATININE 0.4 mg/dL (0.6-1.3); POTASSIUM 3.3 mmol/L (3.5-5.1)
[2022-04-04 07:46] LABS: BASOPHILS # (AUTO) 0.1 K/uL (0.0-0.2); BASOPHILS % (AUTO) 1.1 % (0.0-2.0); EOSINOPHILS % (AUTO) 0.3 % (0.0-6.0); HEMATOCRIT 30 % (33-45); HEMOGLOBIN 9.9 g/dL (11.5-14.8); LYMPHOCYTES # (AUTO) 0.4 K/uL (0.8-4.8); MEAN CORPUSCULAR HGB CONC 33 g/dl (31.0-36.0); MEAN CORPUSCULAR VOLUME 96 fL (82-100); MONOCYTES # (AUTO) 1.7 K/uL (0.1-1.30); MONOCYTES % (AUTO) 12.6 % (2.0-12.0); NEUTROPHILS # (AUTO) 10.9 K/uL (1.8-8.9); RED BLOOD CELL COUNT(AUTO) 3.17 MIL/uL (4.0-5.2); WHITE BLOOD COUNT (AUTO) 13.2 K/uL (4.3-11.0)
[2022-04-04 08:00] VITALS: BP 125/84
[2022-04-04 08:12] LABS: ALBUMIN 1.4 g/dL (3.4-5.0)
[2022-04-04 08:27] LABS: PLATELET COUNT (AUTO) 48 K/uL (150-450)
[2022-04-04] MEDS: SPIRONOLACTONE 25 MG TABLET PO SCH (08:41)
[2022-04-04] MEDS: RIFAXIMIN 550 MG TABLET PO SCH ×2 (08:41→16:49)
[2022-04-04] MEDS: FAMOTIDINE (20 MG) 20 MG TABLET PO SCH ×2 (08:41→21:11)
[2022-04-04] MEDS: PROPRANOLOL HCL 40 MG TABLET NG SCH ×2 (08:48→21:11)
--- NOTE | 2022-04-04 08:48 | NUR ---
RN NOTE MEDICATION PROPRANOLOL HELD DUE TO LOW HR 56.
[2022-04-04] MEDS ORDERED: POTASSIUM CHLORIDE 20 MEQ TAB.PRT.SR PO ONE (10:30)
[2022-04-04 12:00] VITALS: BP 115/70
[2022-04-04 16:00] VITALS: BP 116/73
[2022-04-04 17:51] LABS: BAND % (MANUAL) 5 % (0.0-5.0); LYMPHOCYTES % (MANUAL) 7 % (16-48); MONOCYTES % (MANUAL) 7 % (0-11.0); NEUTROPHILS % (MANUAL) 81 (42-76)
[2022-04-04] MEDS ORDERED: PHYTONADIONE INJ 10 MG/1 ML AMPUL SQ ONE (19:00)
--- NOTE | 2022-04-04 19:00 | NUR ---
RN CLOSING NOTE: PATIENT REMAINS IN BED WITHOUT RESPIRATORY DISTRESS, PATIENT STILL ON 2L OF 02 VIA NC ;TOLERATING WELL SATURATING @ >97% SP02. SAFETY MEASURES IMPLEMENTED, BED IN LOWEST POSITION, LOCKED, SIDE RAILS UP, CALL LIGHT WITHIN REACH. ALL NEEDS AND ORDERS ADDRESSED DURING THE SHIFT. IV ACCESS MAINTAINED INTACT, SECURED AND FLUSHING WELL. ALL DUE MEDS GIVEN ORDERED & SCHEDULED ; PATIENT TOLERATED WELL. PATIENT KEPT CLEAN AND COMFORTABLE WITHIN THE SHIFT. PATIENT ENDORSED TO THE PHARMACIST HOSPITAL RN WITH STABLE VITAL SIGN AND FOR NINA.
--- NOTE | 2022-04-04 19:35 | NUR ---
RN NOTES RECEIVED PT FOR CONTINUITY OF CARE. PATIENT A/OX2-3; CONFUSED IN NO S/SX OF ACUTE DISTRESS AT THIS TIME; CURRENTLY ON 2L OF 02 VIA NC; WITH 02 SAT >95% AT THIS TIME. WITH IV ACCESS ON L UA MIDLINE PATENT, INTACT AND FLUSHING WELL. WITH NGT ON L NARE SECURED AND INTACT, PLACEMENT VERIFIED VIA AUSCULTATION; CLAMPED. WITH BILATERAL SOFT RESTRAINTS IN PLACED, MONITORED AND ASSESSED PER PROTOCOL. WILL ENSURE SAFETY MEASURES WITHIN THE SHIFT. PATIENT BED ALARM IS ON. HEAD OF BED ELEVATED. BED IS LOCKED, IN LOWEST POSITION AND SIDE RAILS UP. CALL LIGHT WITHIN REACH OF THE PATIENT. WILL CONTINUE TO MONITOR AND REASSESS FOR ANY CHANGES AND WILL CARRY OUT ANY ONGOING AND ACTIVE MD ORDER.
[2022-04-04 20:00] VITALS: BP 118/61
--- NOTE | 2022-04-04 20:45 | NUR ---
RN NOTES RECEIVED CALL FROM [facility] AND SPOKE WITH SARAH SORIA FOR A COPY OF DC SUMMARY WITH PT'S INFO TO BE FAXED @[phone]. SENT REQUESTED. SUPERVISOR WEAVING MADE AWARE. NO BED AVAILABILITY AT THIS TIME.
[2022-04-05] VITALS: BP 123/78
[2022-04-05] MEDS: IPRATROPIUM NEB FS 0.5 MG/2.5 ML AMPUL.NEB NEB SCH ×7 (00:15→23:41)
[2022-04-05] MEDS: ALBUTEROL HALF STRENGTH 1.25 MG/3 ML VIAL.NEB NEB SCH ×7 (00:15→23:41)
[2022-04-05 04:00] VITALS: BP 126/81
[2022-04-05] MEDS: LACTULOSE 10 G/15 ML UDC (PYXIS) PO SCH ×4 (05:10→23:14)
[2022-04-05] MEDS: BLOOD SUGAR DIAGNOSTIC 1 EACH STRIP IN SCH ×3 (05:17→17:40)
--- NOTE | 2022-04-05 05:18 | NUR ---
RN NOTES ACCU CHECK DONE; 198MG/DL NO COVERAGE GIVEN PER MISCELENOUS ORDER FROM DR. AUGUST; DONT GIVE INSULIN IF READING IS <200. HOME SECURITY ALARM INSTALLER MADE AWARE.
--- NOTE | 2022-04-05 06:40 | NUR ---
RN CLOSING NOTE: PATIENT REMAINS IN ROOM IN NO SIGNS OF RESPIRATORY DISTRESS, PATIENT NOW ON ROOM AIR ;TOLERATING WELL SATURATING @ >95% SP02. SAFETY MEASURES IMPLEMENTED, BED IN LOWEST POSITION, LOCKED, SIDE RAILS UP, CALL LIGHT WITHIN REACH. ALL NEEDS AND ORDERS ADDRESSED DURING THE SHIFT. IV ACCESS MAINTAINED INTACT, SECURED AND FLUSHING WELL. ALL DUE MEDS GIVEN ORDERED & SCHEDULED ; PATIENT TOLERATED WELL. PATIENT KEPT CLEAN AND COMFORTABLE WITHIN THE SHIFT. DC SUMMARY SENT TO [facility] REQUESTED; WAS INFORMED THAT AT THIS TIME NO BED AVAILABILITY YET. PATIENT ENDORSED TO INCOMING SHIFT RN WITH STABLE VITAL SIGN AND FOR CONTINUITY OF CARE.
[2022-04-05 06:50] LABS: BASOPHILS % (AUTO) 0.2 % (0.0-2.0); EOSINOPHILS % (AUTO) 0.1 % (0.0-6.0); HEMATOCRIT 36 % (33-45); HEMOGLOBIN 11.9 g/dL (11.5-14.8); LYMPHOCYTES # (AUTO) 0.6 K/uL (0.8-4.8); LYMPHOCYTES % (AUTO) 4.5 % (20.0-44.0); MEAN CORPUSCULAR HGB CONC 33 g/dl (31.0-36.0); MEAN CORPUSCULAR VOLUME 95 fL (82-100); MONOCYTES # (AUTO) 2.2 K/uL (0.1-1.30); MONOCYTES % (AUTO) 15.2 % (2.0-12.0); NEUTROPHILS # (AUTO) 11.6 K/uL (1.8-8.9); RED BLOOD CELL COUNT(AUTO) 3.78 MIL/uL (4.0-5.2); WHITE BLOOD COUNT (AUTO) 14.5 K/uL (4.3-11.0)
[2022-04-05 06:56] LABS: D-DIMER 16.57 mg/L(FEU (0.17-0.50)
[2022-04-05 07:02] LABS: PLATELET COUNT (AUTO) 46 K/uL (150-450)
--- NOTE | 2022-04-05 07:26 | NUR ---
JD EDWARDS OPENING NOTE RECEIVED PT AWAKE AND RESTING IN BED. PT IS A/O X2-3, CONFUSED, REORIENTED PT NEEDED. ON O2 AT 2L/MIN VIA NASAL CANNULA, TOLERATING WELL. NO SOB NOTED. NOT IN ANY SIGN OF RESPIRATORY DISTRESS. PT ON TELE SYSTEM SUPPORT DEVELOPER WITH CURRENT READING OF SINUS SANYA, HR 58. NO SIGNS OF CARDIAC DISTRESS NOTED AT THIS TIME. IV ACCESS IN MOHAN PICCLINE INTACT AND PATENT. PT NOTED WITH NGT ON L NARE, SECURED, PATENT AND INTACT. PT'S BILATERAL SOFT WRIST RESTRAINTS IN PLACE ORDERED. NO CIRCULATION PROBLEM OR SKIN IMPAIRMENT NOTED. MILLER CATH IN PLACE AND DRAINING WELL. SAFETY MEASURES IN PLACE: BED IN LOWEST AND LOCKED POSITION, BED ALARM ON, SIDE RAILS UPX2, AND CALL LIGHT WITHIN REACH. WILL CONTINUE TO MONITOR PT. Addendum: 04/05/22 at 1047 by MARGIE COLEMAN RN CORRECTION: DELETE NOTE: ON O2 AT 2L/MIN VIA NASAL CANNULA. ADDENDUM: PT IS ON ROOM AIR, TOLERATING WELL. NOT IN ANY SIGN OF RESPIRATORY DISTRESS.
[2022-04-05 07:39] LABS: ALBUMIN 1.6 g/dL (3.4-5.0); BILIRUBIN,DIRECT 6.5 mg/dL (0.0-0.2); BILIRUBIN,TOTAL 11.6 mg/dL (0.2-1.0); CALCIUM, SERUM 8.1 mg/dL (8.5-10.1); CREATININE 0.6 mg/dL (0.6-1.3); POTASSIUM 3.3 mmol/L (3.5-5.1); TOTAL PROTEIN, SERUM 5.7 g/dL (6.4-8.2)
[2022-04-05 08:00] VITALS: BP 130/75
[2022-04-05] MEDS: PROPRANOLOL HCL 40 MG TABLET NG SCH ×2 (09:00→21:13)
[2022-04-05] MEDS: SPIRONOLACTONE 25 MG TABLET PO SCH (09:22)
[2022-04-05] MEDS: FAMOTIDINE (20 MG) 20 MG TABLET PO SCH ×2 (09:22→21:12)
[2022-04-05] MEDS: RIFAXIMIN 550 MG TABLET PO SCH ×2 (09:22→16:44)
--- NOTE | 2022-04-05 09:25 | NUR ---
RN NOTE PROPRANOLOL MEDICATION SCHEDULED AT 0900 HELD PER ORDERED PARAMETER. PT'S HR IS 58 BPM.
[2022-04-05] MEDS ORDERED: POTASSIUM CHLORIDE 20 MEQ POWDER PACKET GT SCH (09:30)
--- NOTE | 2022-04-05 11:27 | NUR ---
RN NOTE PT WAS SEEN BY JOSE ARREOLA NP. CLARIFIED THE LACTULOSE MEDICATION ORDER AND MADE HIM AWARE THAT PER SINGING WAITER OR WAITRESS NURSE, DAYSI LANTIGUA, PT HAD 3 BM DURING SINGING WAITER OR WAITRESS. ALSO MADE HIM AWARE THAT AMMONIA LEVEL IS 18. PER JOSE, OK TO HOLD LACTULOSE IF PT HAVE MULTIPLE BM OR DIARRHEA.
[2022-04-05] MEDS: INSULIN REGULAR, HUMAN 100 UNIT/ML 3 ML VIAL SQ PRN ×2 (11:54→17:41)
[2022-04-05 12:00] VITALS: BP 115/71
--- NOTE | 2022-04-05 15:38 | NUR ---
RN NOTE PT'S BILATERAL SOFT WRIST RESTRAINTS IS OFF AT THIS TIME. PT REMAINS CALM WITH FAMILY AT BEDSIDE. PT HAS NO EPISODES OF BEHAVIOR PROBLEM OR PULLING OUT HER CATHETER OR TUBES. NO CIRCULATION PROBLEM OR SKIN IMPAIRMENT NOTED. WILL CONTINUE TO MONITOR PT.
[2022-04-05 16:00] VITALS: BP 115/71
--- NOTE | 2022-04-05 19:05 | NUR ---
EXPELLER WORKER CLOSING NOTE PT AWAKE AND RESTING IN BED. PT'S FATHER AT BEDSIDE. PT IS A/O X2-3, REORIENTED PT NEEDED. ON ROOM AIR, TOLERATING WELL. NO SOB NOTED. NOT IN ANY SIGN OF RESPIRATORY DISTRESS. PT ON TELE MECHANICAL MAINTENANCE TECHNICIAN WITH CURRENT READING OF SINUS RHYTHM, HR 69. NO SIGNS OF CARDIAC DISTRESS NOTED AT THIS TIME. IV ACCESS IN MOHAN PICCLINE INTACT AND PATENT. PT'S NGT ON L NARE SECURED, PATENT AND INTACT. PT'S BILARERAL SOFT WRIST RESTRAINTS WAS PLACED BACK ON THE PT DUE TO EPISODES OF TRYING TO PULL OUT HER IV'S AND CATHETER. NO CIRCULATION PROBLEM OR SKIN IMPAIRMENT NOTED. MILLER CATH IN PLACE AND DRAINING WELL. ALL NEEDS ATTENDED. KEPT CLEAN AND COMFORTABLE. SAFETY MEASURES IN PLACE: BED IN LOWEST AND LOCKED POSITION, BED ALARM ON, KEPT HOB ELEVATED, SIDE RAILS UPX2, AND CALL LIGHT WITHIN REACH. ENDORSED TO AQUATICS ASSISTANT DEPARTMENT HEAD NURSE FOR NINA.
--- NOTE | 2022-04-05 19:10 | NUR ---
RN NOTES RECEIVED PT FOR CONTINUITY OF CARE. PATIENT A/OX2-3; CONFUSED IN NO S/SX OF ACUTE DISTRESS AT THIS TIME; CURRENTLY ON ROOM AIR; WITH 02 SAT >95% AT THIS TIME. WITH IV ACCESS ON L UA MIDLINE PATENT, INTACT AND FLUSHING WELL. WITH NGT ON L NARE SECURED AND INTACT, PLACEMENT VERIFIED VIA AUSCULTATION; CLAMPED. WITH BILATERAL SOFT RESTRAINTS IN PLACED, MONITORED AND ASSESSED PER PROTOCOL. WILL ENSURE SAFETY MEASURES WITHIN THE SHIFT. PATIENT BED ALARM IS ON. HEAD OF BED ELEVATED. BED IS LOCKED, IN LOWEST POSITION AND SIDE RAILS UP. CALL LIGHT WITHIN REACH OF THE PATIENT. WILL CONTINUE TO MONITOR AND REASSESS FOR ANY CHANGES AND WILL CARRY OUT ANY ONGOING AND ACTIVE MD ORDER.
[2022-04-05 20:00] VITALS: BP 117/74
[2022-04-06] VITALS: BP 114/70
[2022-04-06] MEDS: INSULIN REGULAR, HUMAN 100 UNIT/ML 3 ML VIAL SQ PRN ×4 (00:17→17:58)
[2022-04-06] MEDS: BLOOD SUGAR DIAGNOSTIC 1 EACH STRIP IN SCH ×4 (00:17→17:38)
--- NOTE | 2022-04-06 00:18 | NUR ---
RN NOTES ACCU CHECK DONE; 176MG/DL NO COVERAGE GIVEN PER MISCELLANEOUS ORDER FROM DR. AUGUST; DONT GIVE INSULIN IF READING IS <200. CONDUIT INSTALLER MADE AWARE.
--- NOTE | 2022-04-06 01:31 | NUR ---
RT PT RECVD AWAKE AND VERBAL ON ROOM AIR. NO SOB OR RESPIRATORY DISTRESS NOTED. NEB TX GIVEN AND MARIPOSA WELL. SPO2 >92% MAINTAINED.
[2022-04-06] MEDS: ALBUTEROL HALF STRENGTH 1.25 MG/3 ML VIAL.NEB NEB SCH ×6 (02:49→23:29)
[2022-04-06] MEDS: IPRATROPIUM NEB FS 0.5 MG/2.5 ML AMPUL.NEB NEB SCH ×6 (02:49→23:29)
[2022-04-06 04:00] VITALS: BP 121/80
--- NOTE | 2022-04-06 05:37 | NUR ---
RN NOTES ACCU CHECK DONE; 190MG/DL NO COVERAGE GIVEN PER MISCELLANEOUS ORDER FROM DR. AUGUST; DONT GIVE INSULIN IF READING IS <200. EQUIPMENT MAINTENANCE SUPERINTENDENT MADE AWARE.
[2022-04-06] MEDS: LACTULOSE 10 G/15 ML UDC (PYXIS) PO SCH ×3 (06:33→17:11)
--- NOTE | 2022-04-06 06:36 | NUR ---
RN CLOSING NOTE: PATIENT REMAINS IN ROOM IN NO SIGNS OF RESPIRATORY DISTRESS, PATIENT A/OX2-3; MORE ORIENTED AND COMMUNICATIVE THIS SHIFT. NOW ON ROOM AIR ;TOLERATING WELL SATURATING @ >95% SP02. SAFETY MEASURES IMPLEMENTED, BED IN LOWEST POSITION, LOCKED, SIDE RAILS UP, CALL LIGHT WITHIN REACH. ALL NEEDS AND ORDERS ADDRESSED DURING THE SHIFT. IV ACCESS MAINTAINED INTACT, SECURED AND FLUSHING WELL. ALL DUE MEDS GIVEN ORDERED & SCHEDULED ; PATIENT TOLERATED WELL. PATIENT KEPT CLEAN AND COMFORTABLE WITHIN THE SHIFT. PLAN: TO BE TRANSFERRED TO [facility] FOR LIVER TRANSPLANT; NO BED AVAILABLE YET. PATIENT ENDORSED TO INCOMING SHIFT RN WITH STABLE VITAL SIGN AND FOR CONTINUITY OF CARE.
--- NOTE | 2022-04-06 07:10 | NUR ---
RN NOTE RECEIVED PATIENT IN BED RESTING ALERT ORIENTED X2-3 VERBALLY RESPONSIVE ON ROOM AIR O2:94%,IV SITE IS ON LEFT UPPER ARM PICC LINE INTACT PATENT,NGT IN PLACE CHECKED PLACEMENT IN PLACE,MILLER CATH IN PLACE,URINE DRAINING YELLOW BY GRAVITY,BILATERAL SOFT WRIST RESTRAINS IN PLACE WILL CHECK EVERY 15 MINS FOR SKIN BREAKDOWN AND CIRCULATION,SAFETY MEASURE IMPLEMENT,BED IN LOW POSITION AND LOCKED HEAD OF THE BED ELEVATED,CONTINUE TO MONITOR.
[2022-04-06 07:30] LABS: CREATININE 0.6 mg/dL (0.6-1.3); POTASSIUM 3.4 mmol/L (3.5-5.1)
[2022-04-06 07:31] LABS: BASOPHILS % (AUTO) 0.3 % (0.0-2.0); EOSINOPHILS % (AUTO) 0.3 % (0.0-6.0); HEMATOCRIT 35 % (33-45); HEMOGLOBIN 11.6 g/dL (11.5-14.8); LYMPHOCYTES # (AUTO) 0.8 K/uL (0.8-4.8); LYMPHOCYTES % (AUTO) 8.6 % (20.0-44.0); MEAN CORPUSCULAR HGB CONC 33 g/dl (31.0-36.0); MEAN CORPUSCULAR VOLUME 95 fL (82-100); MONOCYTES # (AUTO) 1.8 K/uL (0.1-1.30); MONOCYTES % (AUTO) 18.8 % (2.0-12.0); NEUTROPHILS # (AUTO) 6.9 K/uL (1.8-8.9); PLATELET COUNT (AUTO) 52 K/uL (150-450); RED BLOOD CELL COUNT(AUTO) 3.66 MIL/uL (4.0-5.2); WHITE BLOOD COUNT (AUTO) 9.6 K/uL (4.3-11.0)
[2022-04-06 07:42] LABS: D-DIMER 0.3 mg/L(FEU (0.17-0.50)
[2022-04-06 08:00] VITALS: BP 121/77
[2022-04-06] MEDS: PROPRANOLOL HCL 40 MG TABLET NG SCH ×2 (09:00→21:24)
[2022-04-06] MEDS: FAMOTIDINE (20 MG) 20 MG TABLET PO SCH ×2 (09:24→21:24)
[2022-04-06] MEDS: SPIRONOLACTONE 25 MG TABLET PO SCH (09:24)
[2022-04-06] MEDS: RIFAXIMIN 550 MG TABLET PO SCH ×2 (09:25→17:11)
[2022-04-06] MEDS ORDERED: POTASSIUM CHLORIDE 20 MEQ TAB.PRT.SR PO SCH (11:00)
[2022-04-06 11:43] LABS: BAND % (MANUAL) 3 % (0.0-5.0); BASOPHILS % (MANUAL) 0 % (0.0-2.0); EOSINOPHILS % (MANUAL) 0 % (0-4); LYMPHOCYTES % (MANUAL) 5 % (16-48); MONOCYTES % (MANUAL) 11 % (0-11.0); NEUTROPHILS % (MANUAL) 81 (42-76)
[2022-04-06 12:00] VITALS: BP 117/79
--- NOTE | 2022-04-06 13:46 | NUR ---
RN NOTE CALLED FROM [facility] LIVER KICK PRESS OPERATOR LÁZARO,NO BED AVAILABLE NOW,WHEN AVAILABLE THEY WILL CALL US,CONTINUE TO MONITOR.
[2022-04-06] MEDS ORDERED: IPRATROPIUM NEB FS 0.5 MG/2.5 ML AMPUL.NEB ONE (15:59)
[2022-04-06 16:00] VITALS: BP 116/88
[2022-04-06] MEDS ORDERED: diphenhydrAMINE HCL 50 MG/ML VIAL IV ONE (17:00)
--- NOTE | 2022-04-06 17:00 | NUR ---
RN NOTE PATIENT REMOVED HER NGT,NOTIFIED DR JOSE ARREOLA,HE SAID THAT IS ON NOT REINSERT PATIENT CAN EAT CONTINUE TO MONITOR
--- NOTE | 2022-04-06 19:07 | NUR ---
RN NOTE PATIENT REMAINS ALERT ORIENTED X2-3 VERBALLY RESPONSIVE ON ROOM AIR NO SOB NOT ACUTE DISTRESS NOTED,ALL DUE MEDS GIVEN MD ORDERED,KEPT CLEAN AND DRY ALL THE TIME,MILLER CATH IN PLACE,ALL NEEDS MET ENDORSE NEXT COMING SHIFT FOR CONTINUATION OF CARE.
[2022-04-06 20:00] VITALS: BP 134/71
--- NOTE | 2022-04-06 20:00 | NUR ---
GAS PIT WORKER NOTE PT IN BED AWAKE. A/O X 2, NO SOB, NO DISTRESS OR DISCOMFORT NOTED. DENIES PAIN. PT WITH BILATERAL SOFT WRIST RESTRAINTS ON. AT TIMES PT IS SLIDING OUT OF BED, DANGLING HER LEGS STATES "IT FEELS GOOD AND I WANT TO LEAVE THIS PLACE.". REPOSITION HER IN BED. ON TELE SR 74. KEPT SIDE RAILS UP X 3. REPOSITION HER Q2H, KEPT HER DRY AND CLEAN. F/C INTACT AND PATENT DRAINING CLOUDY URINE. VSS. CONTINUE TO MONITOR HER.
[2022-04-07] VITALS: BP 119/70
[2022-04-07] MEDS: BLOOD SUGAR DIAGNOSTIC 1 EACH STRIP IN SCH ×5 (01:05→23:35)
[2022-04-07] MEDS: IPRATROPIUM NEB FS 0.5 MG/2.5 ML AMPUL.NEB NEB SCH ×5 (03:30→20:09)
[2022-04-07 04:00] VITALS: BP 130/75
[2022-04-07] MEDS: ALBUTEROL HALF STRENGTH 1.25 MG/3 ML VIAL.NEB NEB SCH ×5 (04:14→20:09)
[2022-04-07] MEDS: LACTULOSE 10 G/15 ML UDC (PYXIS) PO SCH ×5 (05:53→23:44)
[2022-04-07 06:20] LABS: BASOPHILS % (AUTO) 0.5 % (0.0-2.0); EOSINOPHILS % (AUTO) 0.2 % (0.0-6.0); HEMATOCRIT 35 % (33-45); HEMOGLOBIN 11.8 g/dL (11.5-14.8); LYMPHOCYTES % (AUTO) 10.8 % (20.0-44.0); MEAN CORPUSCULAR HGB CONC 34 g/dl (31.0-36.0); MEAN CORPUSCULAR VOLUME 95 fL (82-100); MONOCYTES # (AUTO) 1.7 K/uL (0.1-1.30); MONOCYTES % (AUTO) 18.3 % (2.0-12.0); NEUTROPHILS # (AUTO) 6.6 K/uL (1.8-8.9); NEUTROPHILS % (AUTO) 70.2 % (43.0-81.0); PLATELET COUNT (AUTO) 55 K/uL (150-450); RED BLOOD CELL COUNT(AUTO) 3.63 MIL/uL (4.0-5.2); WHITE BLOOD COUNT (AUTO) 9.4 K/uL (4.3-11.0)
[2022-04-07 06:35] LABS: CALCIUM, SERUM 7.9 mg/dL (8.5-10.1); CREATININE 0.5 mg/dL (0.6-1.3); POTASSIUM 3.5 mmol/L (3.5-5.1)
[2022-04-07 06:44] LABS: D-DIMER 10.26 mg/L(FEU (0.17-0.50)
--- NOTE | 2022-04-07 06:57 | NUR ---
JIGSAW OPERATOR NOTE PT IN BED AWAKE. NO SOB, NO DISTRESS OR DISCOMFORT NOTED. DENIES PAIN. KEPT HER DRY AND CLEAN. ALL NEEDS ATTENDED. WILL ENDORSE TO DAY SHIFT NURSE FOR CONTINUE TO CARE.
[2022-04-07 08:00] VITALS: BP 121/78
--- NOTE | 2022-04-07 08:07 | NUR ---
RT Inhalation tx (Atrovent) not given due to med not available.
[2022-04-07] MEDS: PROPRANOLOL HCL 40 MG TABLET NG SCH ×2 (08:59→21:34)
[2022-04-07] MEDS: FAMOTIDINE (20 MG) 20 MG TABLET PO SCH ×2 (08:59→21:35)
[2022-04-07] MEDS: SPIRONOLACTONE 25 MG TABLET PO SCH (08:59)
[2022-04-07] MEDS: RIFAXIMIN 550 MG TABLET PO SCH ×2 (09:04→17:11)
[2022-04-07] MEDS: THERAHONEY GEL 1.5 OZ TUBE TP SCH (11:30)
--- NOTE | 2022-04-07 11:31 | NUR ---
WOUND CARE CONSULT/FOLLOW UP: PT SEEN FOR RE-EVALUATION OF SACRAL DEEP TISSUE INJURY WHICH IS NOW IN EVOLUTION, PRESENT ON ADMISSION. RT ARM SKIN TEAR IS NOW RESOLVED. RT ANKLE DISCOLORATION REMAINS, NONTENDER AND WITHOUT ERYTHEMA. RECOMMENDATIONS MADE FOR SKIN PROTECTION AND WOUND CARE. SURGICAL CONSULT CALLED TO DR MARIANGEL CANCINO MD IN AGREEMENT WITH PLAN OF CARE. Addendum: 04/07/22 at 1133 by JOHNSON DALE WNDNU Amended: Links added.
[2022-04-07 12:00] VITALS: BP 104/70
--- NOTE | 2022-04-07 12:00 | NUR ---
RN NOTE LACTULOSE HELD DUE TO LOW AMMONIA LEVEL 10 BY DOCTOR JOSE'S ORDER.
[2022-04-07 12:18] LABS: BAND % (MANUAL) 10 % (0.0-5.0); LYMPHOCYTES % (MANUAL) 5 % (16-48); MONOCYTES % (MANUAL) 15 % (0-11.0); MYELOCYTES % 1 % (0-0); NEUTROPHILS % (MANUAL) 69 (42-76)
[2022-04-07] MEDS: INSULIN REGULAR, HUMAN 100 UNIT/ML 3 ML VIAL SQ PRN ×3 (12:35→23:34)
[2022-04-07 16:00] VITALS: BP 95/57
--- NOTE | 2022-04-07 19:00 | NUR ---
RN CLOSING NOTE PATIENT REMAINS IN ROOM IN NO SIGNS OF RESPIRATORY DISTRESS, PATIENT A/OX2-3; MORE ORIENTED AND COMMUNICATIVE IN THE AFTERNOON. NOW ON ROOM AIR ;TOLERATING WELL SATURATING @ >96% SP02. SAFETY MEASURES IMPLEMENTED, BED IN LOWEST POSITION, LOCKED, SIDE RAILS UP, CALL LIGHT WITHIN REACH. AMMONIA LEVEL [address] JOSE ARREOLA NOTIFIED IN THE MORNING AND PER HIS ORDER I HELD THE LACTULOSE MEDICATION FOR 1200 AND 1700 O'CLOCK. ALL OTHER MEDICATION CRUSHED AND GIVEN TO THE PATIENT WITH APPLE SAUCE. ALL NEEDS AND ORDERS ADDRESSED DURING THE SHIFT. IV ACCESS MAINTAINED INTACT, SECURED AND FLUSHING WELL. ALL DUE MEDS GIVEN ORDERED & SCHEDULED ; PATIENT TOLERATED WELL. PATIENT KEPT CLEAN AND COMFORTABLE WITHIN THE SHIFT. PLAN: TO BE TRANSFERRED TO [facility] FOR LIVER TRANSPLANT; NO BED AVAILABLE YET. PATIENT ENDORSED TO THE E BUSINESS MANAGER RN WITH STABLE VITAL SIGN AND FOR NINA.
[2022-04-07 20:00] VITALS: BP 103/55
--- NOTE | 2022-04-07 20:00 | NUR ---
REAL PROPERTY EVALUATOR NOTE PT IN BED A/O 2, CONFUSED AT TIME. NO DISTRESS OR DISCOMFORT NOTED. DENIES PAIN. ON TELE SR HR 73. BILATERAL SOFT WRIST RESTRAINT ON. MOHAN PICC LINE INTACT AND PATENT. KEPT HER DRY AND CLEAN. F/C DRAINING CLOUDY URINE. REPOSITION HER FOR COMFORT. ALL NEEDS ATTENDED. VSS. CONTILNUE TO MONITOR HER.
[2022-04-08] VITALS (8 sets, daily range): BP systolic 100–116; BP diastolic 63–74
[2022-04-08] MEDS: IPRATROPIUM NEB FS 0.5 MG/2.5 ML AMPUL.NEB NEB SCH ×7 (00:04→23:43)
[2022-04-08] MEDS: ALBUTEROL HALF STRENGTH 1.25 MG/3 ML VIAL.NEB NEB SCH ×7 (00:04→23:43)
[2022-04-08] MEDS: BLOOD SUGAR DIAGNOSTIC 1 EACH STRIP IN SCH ×3 (05:27→17:43)
[2022-04-08] MEDS: LACTULOSE 10 G/15 ML UDC (PYXIS) PO SCH ×3 (05:27→17:41)
[2022-04-08 06:21] LABS: BASOPHILS # (AUTO) 0.1 K/uL (0.0-0.2); BASOPHILS % (AUTO) 0.6 % (0.0-2.0); EOSINOPHILS % (AUTO) 0.4 % (0.0-6.0); HEMATOCRIT 34 % (33-45); HEMOGLOBIN 11.1 g/dL (11.5-14.8); LYMPHOCYTES # (AUTO) 1.4 K/uL (0.8-4.8); LYMPHOCYTES % (AUTO) 14.7 % (20.0-44.0); MEAN CORPUSCULAR HGB CONC 33 g/dl (31.0-36.0); MEAN CORPUSCULAR VOLUME 98 fL (82-100); MONOCYTES # (AUTO) 1.7 K/uL (0.1-1.30); MONOCYTES % (AUTO) 17.3 % (2.0-12.0); NEUTROPHILS # (AUTO) 6.4 K/uL (1.8-8.9); RED BLOOD CELL COUNT(AUTO) 3.41 MIL/uL (4.0-5.2); WHITE BLOOD COUNT (AUTO) 9.6 K/uL (4.3-11.0)
[2022-04-08 06:40] LABS: PLATELET COUNT (AUTO) 47 K/uL (150-450)
--- NOTE | 2022-04-08 06:49 | NUR ---
CLAIMS TECHNICIAN NOTE PT IN BED ASLEEP AROUSABLE , NO DISTRESS OR DISCOMOFRT NOTED. NO S/S OF PAIN NOTED. ON TELE SR PT HR DROPS TO LOW 40'S WHEN GO IN DEEP SLEEP. ON WAKING HER IT GO UP TO 60'S KEPT HER DRY AND CLEAN. ALL NEEDS ATTENDED. WILL ENDORSE TO DAY SHIFT NURSE FOR CONTINUE TO CARE.
--- NOTE | 2022-04-08 07:05 | NUR ---
RN NOTE PT IN BED A/O 2, CONFUSED AT TIME. NO DISTRESS OR DISCOMFORT NOTED. DENIES PAIN. ON TELE SB HR IN 50'S , BILATERAL SOFT WRIST RESTRAINT ON. MOHAN PICC LINE INTACT AND PATENT. KEPT HER DRY AND CLEAN. F/C DRAINING TO GRAVITY , CLOUDY URINE. ALL NEEDS ATTENDED. CONTINUE TO MONITOR HER.
[2022-04-08 07:23] LABS: D-DIMER 9.54 mg/L(FEU (0.17-0.50)
[2022-04-08 08:20] LABS: ABG BASE EXCESS 6.6 mmol/L; ABG OXYGEN SATURATION 95.2 % (92.0-98.5); ABG PCO2 40.1 mmHg (35.0-45.0); ABG PH 7.497 (7.350-7.450); ABG PO2 79.2 mmHg (75.0-100.0); AaDO2 73.1 mmHg; COHb 1.5 % (0.5-1.5); MetHb 0.1 % (0.0-1.5); O2Hb 93.7 % (94.0-97.0); SITE, ABG Right Radial; VENT MODE, BG 2L NC
[2022-04-08] MEDS: RIFAXIMIN 550 MG TABLET PO SCH ×2 (08:24→16:35)
[2022-04-08] MEDS: PROPRANOLOL HCL 40 MG TABLET NG SCH ×2 (08:24→21:00)
[2022-04-08] MEDS: SPIRONOLACTONE 25 MG TABLET PO SCH (08:24)
[2022-04-08] MEDS: FAMOTIDINE (20 MG) 20 MG TABLET PO SCH ×2 (08:25→21:00)
[2022-04-08] MEDS: THERAHONEY GEL 1.5 OZ TUBE TP SCH (08:25)
[2022-04-08 08:29] LABS: ALBUMIN 1.6 g/dL (3.4-5.0); BILIRUBIN,DIRECT 6.1 mg/dL (0.0-0.2); BILIRUBIN,TOTAL 11.2 mg/dL (0.2-1.0); CALCIUM, SERUM 7.8 mg/dL (8.5-10.1); POTASSIUM 4.2 mmol/L (3.5-5.1); TOTAL PROTEIN, SERUM 5.5 g/dL (6.4-8.2)
[2022-04-08 10:42] LABS: CREATININE 0.6 mg/dL (0.6-1.3)
[2022-04-08] MEDS: INSULIN REGULAR, HUMAN 100 UNIT/ML 3 ML VIAL SQ PRN ×3 (12:00→23:21)
--- NOTE | 2022-04-08 12:00 | NUR ---
RN NOTES MOTHER AT THE BEDSID, PT CONFUSED AT TIMES , NO DISTRESS NOTED, CONTINUE TO MONITOR .
[2022-04-08 17:05] LABS: BAND % (MANUAL) 10 % (0.0-5.0); BASOPHILS % (MANUAL) 0 % (0.0-2.0); EOSINOPHILS % (MANUAL) 3 % (0-4); LYMPHOCYTES % (MANUAL) 11 % (16-48); MONOCYTES % (MANUAL) 15 % (0-11.0); NEUTROPHILS % (MANUAL) 61 (42-76)
--- NOTE | 2022-04-08 18:33 | NUR ---
RN NOTES PT RECEIVED 10 UNITS OF CRYOPRECIPITATE ON THIS SHIFT, TOLERATED WELL, NO SIGNIFICANT CHANGES NOTED ON THIS SHIFT, WILL ENDORSE TO DATA ENTRY EMAIL PROCESSOR NURSE FOR CONTINUITY OF CARE
--- NOTE | 2022-04-08 19:25 | NUR ---
MICROFABRICATION ENGINEER MANAGER OPENING NOTE RECEIVED PT AWAKE IN BED. PT IS A/O X2 WITH PERIODS OF CONFUSION, REORIENTED PT NEEDED. ON O2 AT 2L/MIN VIA NASAL CANNULA, TOLERATING WELL. NO SOB NOTED. NOT IN ANY SIGN OF RESPIRATORY DISTRESS. PT ON TELE DATABASE DESIGN ANALYST WITH CURRENT READING OF SR WITH HR 78. NO SIGNS OF CARDIAC DISTRESS NOTED AT THIS TIME. IV ACCESS IN MOHAN PICCLINE INTACT AND PATENT. PT'S BILATERAL SOFT WRIST RESTRAINTS IN PLACE ORDERED. NO CIRCULATION PROBLEM OR SKIN IMPAIRMENT NOTED. MILLER CATH IN PLACE AND DRAINING WELL. SAFETY MEASURES IN PLACE: BED IN LOWEST AND LOCKED POSITION, BED ALARM ON, SIDE RAILS UPX2, AND CALL LIGHT WITHIN REACH. WILL CONTINUE TO MONITOR PT.
[2022-04-09] VITALS: BP 107/72
[2022-04-09] MEDS: BLOOD SUGAR DIAGNOSTIC 1 EACH STRIP IN SCH ×4 (00:50→17:19)
[2022-04-09] MEDS: ALBUTEROL HALF STRENGTH 1.25 MG/3 ML VIAL.NEB NEB SCH ×6 (03:30→23:50)
[2022-04-09] MEDS: IPRATROPIUM NEB FS 0.5 MG/2.5 ML AMPUL.NEB NEB SCH ×6 (03:30→23:50)
[2022-04-09 04:00] VITALS: BP 106/65
[2022-04-09] MEDS: LACTULOSE 10 G/15 ML UDC (PYXIS) PO SCH ×4 (06:00→17:19)
[2022-04-09] MEDS: INSULIN REGULAR, HUMAN 100 UNIT/ML 3 ML VIAL SQ PRN ×2 (06:02→17:38)
[2022-04-09 06:39] LABS: D-DIMER 9.61 mg/L(FEU (0.17-0.50)
--- NOTE | 2022-04-09 07:16 | NUR ---
MANAGER PAYROLL CLOSING NOTE PT AWAKE IN BED. PT IS A/O X2 WITH PERIODS OF CONFUSION, REORIENTED PT NEEDED. ON RA TOLERATING WELL SATING 99%. NO SOB NOTED. NOT IN ANY SIGN OF RESPIRATORY DISTRESS. PT ON TELE CRIBBING SETTER WITH CURRENT READING OF SR WITH HR 68. NO SIGNS OF CARDIAC DISTRESS NOTED AT THIS TIME. IV ACCESS IN MOHAN PICCLINE INTACT AND PATENT. PT'S BILATERAL SOFT WRIST RESTRAINTS IN PLACE ORDERED. NO CIRCULATION PROBLEM OR SKIN IMPAIRMENT NOTED. MILLER CATH IN PLACE AND DRAINING WELL. ALL DUE MEDS GIVEN, KEPT DRY AND CLEAN, SAFETY MEASURES IN PLACE: BED IN LOWEST AND LOCKED POSITION, BED ALARM ON, SIDE RAILS UPX2, AND CALL LIGHT WITHIN REACH. WILL ENDORSE TO AM SHIFT NURSE FOR CONTINUITY OF CARE.
[2022-04-09 08:00] VITALS: BP 114/76
[2022-04-09] MEDS: PROPRANOLOL HCL 40 MG TABLET NG SCH ×2 (09:00→20:30)
--- NOTE | 2022-04-09 09:03 | NUR ---
RN NOTE PT RECEIVED AWAKE IN BED, ALERT AND VERBALLY RESPONSIVE. IN ROOM AIR. NOT IN RESPIRATORY DISTRESS. WITH IV ACCESS ON MOHAN PICC. NO IVF. WITH BILATERAL SOFT WRIST RESTRAINTS. NO SS OF CIRCULATORY IMPAIRMENT. SAFETY MEASURES FOLLOWED. WILL CONTINUE TO MONITOR.
[2022-04-09] MEDS: RIFAXIMIN 550 MG TABLET PO SCH ×2 (10:26→17:19)
[2022-04-09] MEDS: FAMOTIDINE (20 MG) 20 MG TABLET PO SCH ×2 (10:26→20:24)
[2022-04-09] MEDS: THERAHONEY GEL 1.5 OZ TUBE TP SCH (10:27)
[2022-04-09] MEDS: SPIRONOLACTONE 25 MG TABLET PO SCH (10:27)
[2022-04-09 11:16] LABS: ALBUMIN 1.6 g/dL (3.4-5.0); BILIRUBIN,TOTAL 10.9 mg/dL (0.2-1.0); CALCIUM, SERUM 8.1 mg/dL (8.5-10.1); CREATININE 0.5 mg/dL (0.6-1.3); POTASSIUM 4.4 mmol/L (3.5-5.1); TOTAL PROTEIN, SERUM 5.8 g/dL (6.4-8.2)
[2022-04-09] MEDS: CEFEPIME 2 GM in IV D5W 100 ML IV SCH ×2 (11:24→20:23)
[2022-04-09 12:00] VITALS: BP 107/67
[2022-04-09 16:00] VITALS: BP 125/79
--- NOTE | 2022-04-09 18:51 | NUR ---
RN NOTE PT RESTING IN BED, ALERT AND VERBALLY RESPONSIVE. IN ROOM AIR. NOT IN RESPIRATORY DISTRESS. WITH IV ACCESS ON MOHAN PICC. NO IVF. WITH BILATERAL SOFT WRIST RESTRAINTS. NO SS OF CIRCULATORY IMPAIRMENT. MILLER CATH IN PLACE DRAINING WELL. SAFETY MEASURES FOLLOWED. DUE MEDICATIONS GIVEN, AM/PM CARE DONE. WILL CONTINUE TO MONITOR. V/S STABLE.
--- NOTE | 2022-04-09 19:30 | NUR ---
PT RECEIVED AWAKE RESTING IN BED. A/OX2. WITH PERIODS OF CONFUSION, ON RA. NO SOB AND NO SIGNS OF DISTRESS. ON TELE MONITOR. WITH CURRENT READING OF SR WITH HR AT 60'S. INCONTINENT AND HAS FC IN PLACE. HAS MOHAN PICC LINE ON SL. HAS VIPIN SOFT WRIST RESTRAINTS IN PLACE, CHECKED FOR CIRCULATION AND SKIN IMPAIRMENT. SAFETY MEASURES IN PLACE. HOB SLIGHTLY ELEVATED. SIDE RAILS UP X3, BED LOCKED IN LOWEST POSITION, BED ALARM ON, CALL LIGHT WITHIN REACH. WILL CONTINUE PLAN OF CARE.
[2022-04-09 20:00] VITALS: BP 111/68
[2022-04-10] VITALS: BP 103/68
[2022-04-10] MEDS: BLOOD SUGAR DIAGNOSTIC 1 EACH STRIP IN SCH ×4 (00:23→17:08)
[2022-04-10] MEDS: INSULIN REGULAR, HUMAN 100 UNIT/ML 3 ML VIAL SQ PRN ×4 (00:24→17:13)
[2022-04-10] MEDS: LACTULOSE 10 G/15 ML UDC (PYXIS) PO SCH ×4 (00:25→17:07)
[2022-04-10] MEDS: ALBUTEROL HALF STRENGTH 1.25 MG/3 ML VIAL.NEB NEB SCH ×6 (03:36→23:30)
[2022-04-10] MEDS: IPRATROPIUM NEB FS 0.5 MG/2.5 ML AMPUL.NEB NEB SCH ×6 (03:36→23:30)
[2022-04-10 04:00] VITALS: BP 138/70
[2022-04-10] MEDS: CEFEPIME 2 GM in IV D5W 100 ML IV SCH (06:18)
[2022-04-10 06:35] LABS: ALBUMIN 1.7 g/dL (3.4-5.0); BILIRUBIN,TOTAL 13.1 mg/dL (0.2-1.0); CALCIUM, SERUM 8.5 mg/dL (8.5-10.1); CREATININE 0.5 mg/dL (0.6-1.3); POTASSIUM 4.1 mmol/L (3.5-5.1); TOTAL PROTEIN, SERUM 6.5 g/dL (6.4-8.2)
--- NOTE | 2022-04-10 07:01 | NUR ---
PT ASLEEP RESTING IN BED. A/OX2. WITH PERIODS OF CONFUSION, ON RA. NO SOB AND NO SIGNS OF DISTRESS. ON TELE MONITOR. WITH CURRENT READING OF SR WITH HR AT 60'S. INCONTINENT AND HAS FC IN PLACE. HAS MOHAN PICC LINE ON SL. HAS VIPIN SOFT WRIST RESTRAINTS IN PLACE, CHECKED FOR CIRCULATION AND SKIN IMPAIRMENT. DUE MEDS GIVEN. NEEDS ATTENDED. SAFETY MEASURES MAINTAINED. HOB SLIGHTLY ELEVATED. SIDE RAILS UP X3, BED LOCKED IN LOWEST POSITION, BED ALARM ON, CALL LIGHT WITHIN REACH. WILL ENDORSE TO NEXT NURSE ON DUTY FOR CONTINUITY OF CARE.
[2022-04-10 08:00] VITALS: BP 111/68
[2022-04-10] MEDS: THERAHONEY GEL 1.5 OZ TUBE TP SCH (09:00)
[2022-04-10] MEDS: PROPRANOLOL HCL 40 MG TABLET NG SCH ×2 (09:13→21:42)
[2022-04-10] MEDS: FAMOTIDINE (20 MG) 20 MG TABLET PO SCH ×2 (09:13→21:42)
[2022-04-10] MEDS: RIFAXIMIN 550 MG TABLET PO SCH ×2 (09:13→16:53)
[2022-04-10] MEDS: SPIRONOLACTONE 25 MG TABLET PO SCH (09:14)
[2022-04-10 09:57] LABS: BASOPHILS # (AUTO) 0.1 K/uL (0.0-0.2); BASOPHILS % (AUTO) 0.8 % (0.0-2.0); EOSINOPHILS % (AUTO) 0.4 % (0.0-6.0); HEMATOCRIT 33 % (33-45); HEMOGLOBIN 10.8 g/dL (11.5-14.8); LYMPHOCYTES # (AUTO) 1.2 K/uL (0.8-4.8); MEAN CORPUSCULAR HGB CONC 32 g/dl (31.0-36.0); MEAN CORPUSCULAR VOLUME 100 fL (82-100); MONOCYTES # (AUTO) 1.1 K/uL (0.1-1.30); MONOCYTES % (AUTO) 9.7 % (2.0-12.0); NEUTROPHILS # (AUTO) 8.5 K/uL (1.8-8.9); NEUTROPHILS % (AUTO) 78.1 % (43.0-81.0); PLATELET COUNT (AUTO) 54 K/uL (150-450); RED BLOOD CELL COUNT(AUTO) 3.35 MIL/uL (4.0-5.2); WHITE BLOOD COUNT (AUTO) 10.9 K/uL (4.3-11.0)
[2022-04-10 10:08] LABS: CALCIUM, SERUM 8.6 mg/dL (8.5-10.1); CREATININE 0.5 mg/dL (0.6-1.3); POTASSIUM 4.3 mmol/L (3.5-5.1)
[2022-04-10 10:14] LABS: ALBUMIN 1.6 g/dL (3.4-5.0); BILIRUBIN,TOTAL 13.4 mg/dL (0.2-1.0); TOTAL PROTEIN, SERUM 6.4 g/dL (6.4-8.2)
[2022-04-10 12:00] VITALS: BP 111/68
[2022-04-10 15:36] LABS: LYMPHOCYTES % (MANUAL) 10 % (16-48); MONOCYTES % (MANUAL) 10 % (0-11.0); NEUTROPHILS % (MANUAL) 80 (42-76)
--- NOTE | 2022-04-10 15:44 | NUR ---
RESP TX DEFERRED PER PTS REQUEST NO S/S OF SOB NOTED ATT FAMILY AT BEDSIDE Addendum: 04/10/22 at 1545 by LÁZARO CORBETT RT Amended: Links added.
[2022-04-10 16:00] VITALS: BP 103/60
[2022-04-10 20:00] VITALS: BP 104/71
--- NOTE | 2022-04-11 00:20 | NUR ---
LEA/PROGRAM EVALUATOR WHEN BAKERY TECHNICIAN WAS IN ROOM, SHE MADE RESTRAINTS LOSE FOR PT TO CALL HE MOTHER WHO THEN SPENT 1 TO 1.5 HOURS ON THE PHONE LECTURING WHY HER DAUGHTER SHOULD NOT HAVE ON RESTRAINTS. BED ALARM IS ON, CHARGE NURSE IS AWARE THAT SHE DOESN'T WANT RESTRAINTS ON. FAMILY IS DIFFICULT TO REASON WITH AND UNREALISTIC ABOUT DAUGHTERS CONDITION.
[2022-04-11] MEDS: BLOOD SUGAR DIAGNOSTIC 1 EACH STRIP IN SCH ×4 (01:16→19:52)
[2022-04-11] MEDS: LACTULOSE 10 G/15 ML UDC (PYXIS) PO SCH ×4 (01:21→17:12)
[2022-04-11] MEDS: INSULIN REGULAR, HUMAN 100 UNIT/ML 3 ML VIAL SQ PRN ×4 (01:32→19:54)
[2022-04-11 04:00] VITALS: BP 105/61
[2022-04-11] MEDS: ALBUTEROL HALF STRENGTH 1.25 MG/3 ML VIAL.NEB NEB SCH ×6 (04:13→23:25)
[2022-04-11] MEDS: IPRATROPIUM NEB FS 0.5 MG/2.5 ML AMPUL.NEB NEB SCH ×6 (04:13→23:25)
[2022-04-11 06:15] LABS: CALCIUM, SERUM 8.1 mg/dL (8.5-10.1); CREATININE 0.6 mg/dL (0.6-1.3); POTASSIUM 3.8 mmol/L (3.5-5.1)
[2022-04-11 06:18] LABS: BASOPHILS # (AUTO) 0.1 K/uL (0.0-0.2); BASOPHILS % (AUTO) 0.7 % (0.0-2.0); EOSINOPHILS % (AUTO) 0.5 % (0.0-6.0); HEMATOCRIT 29 % (33-45); HEMOGLOBIN 9.9 g/dL (11.5-14.8); LYMPHOCYTES # (AUTO) 1.1 K/uL (0.8-4.8); LYMPHOCYTES % (AUTO) 11.4 % (20.0-44.0); MEAN CORPUSCULAR HGB CONC 34 g/dl (31.0-36.0); MEAN CORPUSCULAR VOLUME 101 fL (82-100); MONOCYTES # (AUTO) 0.9 K/uL (0.1-1.30); MONOCYTES % (AUTO) 9.3 % (2.0-12.0); NEUTROPHILS # (AUTO) 7.8 K/uL (1.8-8.9); NEUTROPHILS % (AUTO) 78.1 % (43.0-81.0); RED BLOOD CELL COUNT(AUTO) 2.88 MIL/uL (4.0-5.2)
[2022-04-11 06:21] LABS: ALBUMIN 1.6 g/dL (3.4-5.0); TOTAL PROTEIN, SERUM 5.9 g/dL (6.4-8.2)
[2022-04-11 06:33] LABS: D-DIMER 8.49 mg/L(FEU (0.17-0.50)
[2022-04-11 06:48] LABS: PLATELET COUNT (AUTO) 43 K/uL (150-450)
[2022-04-11] MEDS ORDERED: DEXTROSE 50%-WATER 50 ML DISP.SYRIN IV PRN (07:30)
--- NOTE | 2022-04-11 07:31 | NUR ---
RN NOTES RECEIVED PT AWAKE IN BED, VERBALLY RESPONSIVE. CONTINUES IN ROOM AIR, NOT IN RESPIRATORY DISTRESS. IV ACCESS ON MOHAN PICC IN PLACE WITH NS RUNNING @TKO. SAFETY MEASURES MAINTAINED. WILL CONTINUE TO MONITOR.
[2022-04-11 08:00] VITALS: BP 104/65
[2022-04-11] MEDS: RIFAXIMIN 550 MG TABLET PO SCH ×2 (08:39→17:12)
[2022-04-11] MEDS: FAMOTIDINE (20 MG) 20 MG TABLET PO SCH ×2 (08:39→21:08)
[2022-04-11] MEDS: THERAHONEY GEL 1.5 OZ TUBE TP SCH (08:40)
[2022-04-11] MEDS: PROPRANOLOL HCL 40 MG TABLET NG SCH ×2 (08:41→21:09)
[2022-04-11] MEDS: SPIRONOLACTONE 25 MG TABLET PO SCH (08:42)
[2022-04-11 12:00] VITALS: BP 101/62
[2022-04-11 12:59] LABS: BAND % (MANUAL) 7 % (0.0-5.0); LYMPHOCYTES % (MANUAL) 16 % (16-48); MONOCYTES % (MANUAL) 9 % (0-11.0); NEUTROPHILS % (MANUAL) 68 (42-76)
[2022-04-11] MEDS ORDERED: PHYTONADIONE INJ 10 MG/1 ML AMPUL SQ ONE (14:00)
[2022-04-11 16:00] VITALS: BP 97/50
--- NOTE | 2022-04-11 16:39 | NUR ---
RN NOTE PT FAMILY STATED NOT TO RESTRAINT PT. BED ALARM ON. WILL CONTINUE TO MONITOR. BED AT LOWEST POSITION.
--- NOTE | 2022-04-11 19:01 | NUR ---
RN NOTES PT AWAKE IN BED, VERBALLY RESPONSIVE. CONTINUES IN ROOM AIR, NOT IN RESPIRATORY DISTRESS. IV ACCESS ON MOHAN PICC IN PLACE WITH NS RUNNING @TKO. SAFETY MEASURES MAINTAINED. DUE MEDICATIONS GIVEN, AM/PM CARE RENDERED. WILL CONTINUE TO MONITOR.
--- NOTE | 2022-04-11 19:10 | NUR ---
RN NOTE PT RECEIVED AWAKE IN BED, ALERT AND VERBALLY RESPONSIVE. FRIEND AT BEDSIDE. ON ROOM AIR. NOT IN RESPIRATORY DISTRESS. WITH IV ACCESS ON MOHAN PICC PATENT FLUSHES WELL. ALL SAFETY MEASURES IN PLACE AT ALL TIMES. HOB ELEVATED. CALL LIGHT WITHIN REACH. ALL SAFETY MEASURES IN PLACE AT ALL TIMES. BED ALARM IN PLACE. WILL CLOSELY MONITOR THE PATIENT
[2022-04-11 20:00] VITALS: BP 100/67
[2022-04-12] MEDS: LACTULOSE 10 G/15 ML UDC (PYXIS) PO SCH ×4 (00:15→17:01)
--- NOTE | 2022-04-12 01:30 | NUR ---
RN NOTES PATIENT TRIED TO GET OUT OF BED. RE-ORIENT PATIENT, PATIENT IS CONFUSED
--- NOTE | 2022-04-12 02:30 | NUR ---
RN NOTES PATIENT IS OUT OF BED SITTING AT THE CHAIR EVEN WITH RESTRAINTS. FREQUENT VISUAL MONITORING RENDERED. CIRCULATION CHECKED Q2H.
[2022-04-12] MEDS: IPRATROPIUM NEB FS 0.5 MG/2.5 ML AMPUL.NEB NEB SCH ×6 (03:14→23:49)
[2022-04-12] MEDS: ALBUTEROL HALF STRENGTH 1.25 MG/3 ML VIAL.NEB NEB SCH ×6 (03:15→23:49)
--- NOTE | 2022-04-12 06:30 | NUR ---
RN NOTES PATIENT STILL TRYING TO GET OUT OF BED EVEN WITH RESTRAINTS. FREQUENT VISUAL MONITORING RENDERED. WILL ENDORSED
[2022-04-12 07:17] LABS: BASOPHILS # (AUTO) 0.1 K/uL (0.0-0.2); BASOPHILS % (AUTO) 1.4 % (0.0-2.0); EOSINOPHILS % (AUTO) 0.7 % (0.0-6.0); HEMATOCRIT 30 % (33-45); LYMPHOCYTES # (AUTO) 1.1 K/uL (0.8-4.8); MEAN CORPUSCULAR HGB CONC 34 g/dl (31.0-36.0); MEAN CORPUSCULAR VOLUME 98 fL (82-100); MONOCYTES % (AUTO) 13.3 % (2.0-12.0); NEUTROPHILS # (AUTO) 5.5 K/uL (1.8-8.9); NEUTROPHILS % (AUTO) 70.6 % (43.0-81.0); RED BLOOD CELL COUNT(AUTO) 3.05 MIL/uL (4.0-5.2); WHITE BLOOD COUNT (AUTO) 7.8 K/uL (4.3-11.0)
[2022-04-12 07:19] LABS: PLATELET COUNT (AUTO) 36 K/uL (150-450)
[2022-04-12 07:36] LABS: ALBUMIN 1.6 g/dL (3.4-5.0); BILIRUBIN,TOTAL 10.2 mg/dL (0.2-1.0); CALCIUM, SERUM 8.1 mg/dL (8.5-10.1); CREATININE 0.6 mg/dL (0.6-1.3); TOTAL PROTEIN, SERUM 6.1 g/dL (6.4-8.2)
[2022-04-12 08:10] LABS: D-DIMER 7.14 mg/L(FEU (0.17-0.50)
[2022-04-12] MEDS: BLOOD SUGAR DIAGNOSTIC 1 EACH STRIP IN SCH ×2 (08:10→19:49)
[2022-04-12] MEDS: RIFAXIMIN 550 MG TABLET PO SCH ×2 (08:35→17:01)
[2022-04-12] MEDS: FAMOTIDINE (20 MG) 20 MG TABLET PO SCH ×2 (08:35→20:56)
[2022-04-12] MEDS: SPIRONOLACTONE 25 MG TABLET PO SCH (08:35)
[2022-04-12] MEDS: PROPRANOLOL HCL 40 MG TABLET NG SCH ×2 (08:35→20:57)
[2022-04-12] MEDS: THERAHONEY GEL 1.5 OZ TUBE TP SCH (08:36)
[2022-04-12] MEDS: INSULIN REGULAR, HUMAN 100 UNIT/ML 3 ML VIAL SQ PRN ×2 (10:14→19:54)
[2022-04-12 12:58] LABS: LYMPHOCYTES % (MANUAL) 13 % (16-48); MONOCYTES % (MANUAL) 7 % (0-11.0); NEUTROPHILS % (MANUAL) 79 (42-76)
--- NOTE | 2022-04-12 15:23 | NUR ---
mother refused pt. to be restrained ,dr. suarez ordered sitter for now and no restraint,nursing sup notified.also air mattress deflated per mother pt. fall risk.will continue to monitor.
[2022-04-12 15:33] VITALS: BP 119/78
--- NOTE | 2022-04-12 15:54 | NUR ---
RN NOTES' RECEIVED REPORT FROM TRACEY TAVAREZ FOR NINA
[2022-04-12 16:00] VITALS: BP 115/67
--- NOTE | 2022-04-12 16:00 | NUR ---
RN CLOSING NOTE PATIENT STABLE A/O X3. ALL MEDICATIONS GIVEN PATIENT CLEAN AND DRY. SHELLY MARQUEZ IS TAKING CARE OF THIS PATINET FROM 1600 TO THE END OF THE SHIFT. I RECEIVED A NEW PATIENT FROM ER ROOM 108 COVID-19 POSITIVE INSTEAD AT 1630..
--- NOTE | 2022-04-12 18:30 | NUR ---
MS RN CLOSING NOTES PT AWAKE IN BED. CALM, PT IS A/O X2 WITH PERIODS OF CONFUSION, REORIENTED PT NEEDED. ON RA TOLERATING WELL SATING 99%. NO SOB NOTED. NOT IN ANY SIGN OF RESPIRATORY DISTRESS. DENIES PAIN, IV ACCESS IN MOHAN PICCLINE INTACT AND PATENT. ALL DUE MEDS GIVEN, KEPT DRY AND CLEAN, SAFETY MEASURES IN PLACE: BED IN LOWEST AND LOCKED POSITION, BED ALARM ON, SIDE RAILS UPX2, AND CALL LIGHT WITHIN REACH. PM CARE DONE EARLIER, WILL ENDORSE TO NEXT SHIFT FOR NINA. NO RESTRAINT PER DR. PATRICK. SITTER AT BEDSIDE
--- NOTE | 2022-04-12 19:15 | NUR ---
RN NOTES RECEIVED REPORT FROM [id number] SHIFT. PATIENT SITTING IN BED SITTER AT BEDSIDE. WITH IV ACCESS AT [facility] PICC PATENT FLUSHES WELL. NO SOB NO DISTRESS NOTED AT THIS TIME. SITTER AT BESIDE AT ALL TIMES. WILL CLOSELY MONITOR THE PATIENT
[2022-04-12 23:45] VITALS: BP 101/67
--- NOTE | 2022-04-12 23:45 | NUR ---
RN NOTES STARTED CRYOPRECIPITATE 111 ML. TRANSFUSE OVER 20 MINUTES ORDERED. VITAL SIGNS TAKEN AND RECORDED. NO TRANSFUSION REACTION NOTED AT THIS TIME. WILL CONTINUE TO MONITOR THE PATIENT
[2022-04-12 23:55] VITALS: BP 105/70
[2022-04-13] VITALS (13 sets, daily range): BP systolic 99–110; BP diastolic 62–70
[2022-04-13] MEDS: LACTULOSE 10 G/15 ML UDC (PYXIS) PO SCH ×5 (00:13→23:49)
[2022-04-13] MEDS: QUETIAPINE FUMARATE 25 MG TABLET PO PRN (00:13)
[2022-04-13] MEDS: IPRATROPIUM NEB FS 0.5 MG/2.5 ML AMPUL.NEB NEB SCH ×7 (03:14→23:26)
[2022-04-13] MEDS: ALBUTEROL HALF STRENGTH 1.25 MG/3 ML VIAL.NEB NEB SCH ×7 (03:14→23:27)
--- NOTE | 2022-04-13 06:37 | NUR ---
RN NOTES SITTER AT BED SIDE AT ALL TIMES. PATIENT IS SO CONFUSED AND HITTING THE SIDE RAILS WITH HER PHONE, REMOVED HER CLOTHES AND TRYING TO GET OUT OF BED. PATIENT IS AGITATED HITTING STAFF WHEN CLEANING HER. FREQUENT RE-ORIENTATION TO THE PATIENT RENDERED. WILL CLOSELY MONITOR THE PATIENT. ENDORSED TO MORNING SHIFT FOR NINA
[2022-04-13] MEDS: BLOOD SUGAR DIAGNOSTIC 1 EACH STRIP IN SCH ×2 (07:30→19:40)
[2022-04-13] MEDS: SPIRONOLACTONE 25 MG TABLET PO SCH (08:33)
[2022-04-13] MEDS: RIFAXIMIN 550 MG TABLET PO SCH ×2 (08:33→16:32)
[2022-04-13] MEDS: PROPRANOLOL HCL 40 MG TABLET NG SCH ×2 (08:33→21:36)
[2022-04-13] MEDS: FAMOTIDINE (20 MG) 20 MG TABLET PO SCH ×2 (08:33→21:36)
[2022-04-13] MEDS: THERAHONEY GEL 1.5 OZ TUBE TP SCH (08:34)
[2022-04-13 09:32] LABS: BASOPHILS # (AUTO) 0.1 K/uL (0.0-0.2); HEMATOCRIT 27 % (33-45); HEMOGLOBIN 9.1 g/dL (11.5-14.8); LYMPHOCYTES # (AUTO) 1.1 K/uL (0.8-4.8); LYMPHOCYTES % (AUTO) 17.5 % (20.0-44.0); MEAN CORPUSCULAR HGB CONC 34 g/dl (31.0-36.0); MEAN CORPUSCULAR VOLUME 99 fL (82-100); MONOCYTES # (AUTO) 0.8 K/uL (0.1-1.30); NEUTROPHILS # (AUTO) 4.3 K/uL (1.8-8.9); NEUTROPHILS % (AUTO) 67.5 % (43.0-81.0); RED BLOOD CELL COUNT(AUTO) 2.72 MIL/uL (4.0-5.2); WHITE BLOOD COUNT (AUTO) 6.4 K/uL (4.3-11.0)
[2022-04-13 09:42] LABS: PLATELET COUNT (AUTO) 28 K/uL (150-450)
[2022-04-13 10:31] LABS: SERUM AMMONIA 55 umol/L (11-32)
[2022-04-13 11:01] LABS: D-DIMER 3.63 mg/L(FEU (0.17-0.50)
[2022-04-13 11:13] LABS: ALANINE AMINOTRANSFERASE 51 U/L (12-78); ALBUMIN 1.5 g/dL (3.4-5.0); ALKALINE PHOSPHATASE 184 U/L (46-116); ASPARTATE AMINOTRANSFERASE 58 U/L (15-37); BILIRUBIN,TOTAL 9.6 mg/dL (0.2-1.0); CALCIUM, SERUM 8.1 mg/dL (8.5-10.1); CARBON DIOXIDE 25 mmol/L (21-32); CREATININE 0.6 mg/dL (0.6-1.3); GLUCOSE 267 mg/dL (74-106); POTASSIUM 4.2 mmol/L (3.5-5.1); SODIUM SERUM 138 mmol/L (136-145); TOTAL PROTEIN, SERUM 5.6 g/dL (6.4-8.2); UREA NITROGEN, BLOOD 7 mg/dL (7-18)
[2022-04-13 13:52] LABS: LYMPHOCYTES % (MANUAL) 12 % (16-48); MONOCYTES % (MANUAL) 11 % (0-11.0); NEUTROPHILS % (MANUAL) 75 (42-76)
[2022-04-13 13:53] LABS: EOSINOPHILS % (MANUAL) 2 % (0-4)
--- NOTE | 2022-04-13 18:06 | NUR ---
tried to infuse cryoprecipitate on patient but product number does not match and unable to infuse at this time.lab notified.nursing meat supervisor notified.
--- NOTE | 2022-04-13 19:30 | NUR ---
RN OPENING NOTE PT FOUND LYING L LATERAL POSITION. A&OX3 WITH SITTER AT BEDSIDE. PT IS ON RA AND TOLERATING WELL AT 98%. MOHAN PICC LINE SALINE LOCKED AND INTACT. NO ACUTE SIGNS OF DISTRESS. PT DENIES OTHER NEEDS AT THIS TIME. SAFETY MEASURES IN PLACE. BED LOCKED AND AT LOWEST POSITION. CALL LIGHT WITHIN REACH AND BED ALARM ON. WILL CONTINUE TO MONITOR.
--- NOTE | 2022-04-13 19:30 | NUR ---
second bag of cryoprecipitate infused from 1829 to 1914. product number [id number];A positive.pt without transfusion reaction.
[2022-04-13] MEDS: INSULIN REGULAR, HUMAN 100 UNIT/ML 3 ML VIAL SQ PRN (19:45)
--- NOTE | 2022-04-13 19:45 | NUR ---
CHARGE NOTES MD WITH ORDER TO TRANSFUSE 2 BAGS OF CRYOPRECIPITATE. FIRST BAG TRANSFUSED WITH NO PROBLEM 2ND BAG WONT SCAN WITH THE PROPER WRISTBAND STICKER MISSING, LABORATORY NOTIFIED SPOKE WITH CANDACE AND SAID THAT THEY WILL SEND THE STICKER... HOWEVER WHEN EVERYTHING WAS SCANNED, VERIFIED AND WAS SAVED EARLIER BY PRIMARY NURSE - KOBI MOREJON, UPON CHECKING LATER IN THE SHIFT, IT SHOWED THAT IT WAS ISSUED ONLY AND NOT TRANSFUSED. VERIFIED WITH KOBI, THE FOLLOWING UNIT NUMBER, PRODUCT NUMBER AND WRISTBAND NUMBER. LABORATORY NOTIFIED.
[2022-04-13] MEDS: IBUPROFEN 600 MG TABLET PO PRN (22:06)
[2022-04-14] VITALS: BP 108/66
[2022-04-14] MEDS: TRAZODONE 50 MG TABLET PO PRN ×2 (03:20→22:42)
[2022-04-14] MEDS: ALBUTEROL HALF STRENGTH 1.25 MG/3 ML VIAL.NEB NEB SCH ×7 (03:30→23:50)
[2022-04-14] MEDS: IPRATROPIUM NEB FS 0.5 MG/2.5 ML AMPUL.NEB NEB SCH ×7 (03:30→23:50)
[2022-04-14] MEDS: LACTULOSE 10 G/15 ML UDC (PYXIS) PO SCH ×3 (05:22→17:13)
[2022-04-14 06:14] LABS: BASOPHILS % (AUTO) 0.8 % (0.0-2.0); EOSINOPHILS % (AUTO) 1.5 % (0.0-6.0); HEMATOCRIT 24 % (33-45); HEMOGLOBIN 8.2 g/dL (11.5-14.8); LYMPHOCYTES # (AUTO) 0.9 K/uL (0.8-4.8); LYMPHOCYTES % (AUTO) 18.4 % (20.0-44.0); MEAN CORPUSCULAR HGB CONC 35 g/dl (31.0-36.0); MEAN CORPUSCULAR VOLUME 101 fL (82-100); MONOCYTES # (AUTO) 0.7 K/uL (0.1-1.30); NEUTROPHILS # (AUTO) 3.1 K/uL (1.8-8.9); NEUTROPHILS % (AUTO) 64.3 % (43.0-81.0); RED BLOOD CELL COUNT(AUTO) 2.32 MIL/uL (4.0-5.2); WHITE BLOOD COUNT (AUTO) 4.8 K/uL (4.3-11.0)
--- NOTE | 2022-04-14 06:43 | NUR ---
RN CLOSING NOTE PT A&OX4. RESPIRATIONS EVEN AND UNLABORED. SKIN IS WARM AND DRY. NO ACUTE SIGNS OF DISTRESS. SAFETY PRECAUTIONS IN PLACE. BED LOCKED AND AT LOWEST LEVEL WITH 2 RAILS UP. CALL LIGHT WITHIN REACH. PT BEING MONITORED BY SITTER.
[2022-04-14 06:45] LABS: D-DIMER 3.39 mg/L(FEU (0.17-0.50)
[2022-04-14 06:47] LABS: CREATININE 0.5 mg/dL (0.6-1.3); POTASSIUM 4.2 mmol/L (3.5-5.1)
[2022-04-14 06:57] LABS: PLATELET COUNT (AUTO) 25 K/uL (150-450)
--- NOTE | 2022-04-14 07:00 | NUR ---
PLATELET COUNT OF 25. CHARGE NURSE NOTIFIED.
--- NOTE | 2022-04-14 07:18 | NUR ---
RN notes Received patient in bed, alert without active complaint. Left UA PICC is in place. Call morin is placed within reach. Bed is locked and placed in lowest position. All safety measures are implemented. Will continue to monitor.
[2022-04-14 07:38] LABS: ALBUMIN 1.6 g/dL (3.4-5.0); BILIRUBIN,TOTAL 8.6 mg/dL (0.2-1.0); TOTAL PROTEIN, SERUM 5.6 g/dL (6.4-8.2)
[2022-04-14] MEDS: INSULIN REGULAR, HUMAN 100 UNIT/ML 3 ML VIAL SQ PRN ×2 (07:58→20:23)
[2022-04-14 08:00] VITALS: BP 95/56
[2022-04-14] MEDS: BLOOD SUGAR DIAGNOSTIC 1 EACH STRIP IN SCH ×2 (08:01→20:21)
[2022-04-14] MEDS: PROPRANOLOL HCL 40 MG TABLET NG SCH ×2 (08:42→20:29)
[2022-04-14] MEDS: SPIRONOLACTONE 25 MG TABLET PO SCH (08:42)
[2022-04-14] MEDS: FAMOTIDINE (20 MG) 20 MG TABLET PO SCH ×2 (08:42→20:28)
[2022-04-14] MEDS: RIFAXIMIN 550 MG TABLET PO SCH ×2 (08:42→17:13)
[2022-04-14] MEDS: THERAHONEY GEL 1.5 OZ TUBE TP SCH (08:43)
--- NOTE | 2022-04-14 12:30 | NUR ---
RN notes Patient is calm and resting in bed. Finished her lunch just now and ate 75% of the meal. Will continue to monitor.
[2022-04-14 16:00] VITALS: BP 96/54
--- NOTE | 2022-04-14 17:43 | NUR ---
RN notes Assist patient to sit on to chair with mild assistance without dizziness reported.
--- NOTE | 2022-04-14 18:38 | NUR ---
RN Notes Patient is alert and oriented today. She is much calmer and interacts well with [facility] home care. Left PICC is dry and intact. Tolerates sit out well. Dressing was done to her sacral wound. Call morin is placed within reach. Bed is locked and placed in lowest position. All safety measures are implemented. Will endorse PM nurse to continue monitoring and care.
--- NOTE | 2022-04-14 19:42 | NUR ---
RN OPENING NOTE PT A&OX4. MOHAN MIDLINE INTACT. PT ON RA AND TOLERATING WELL. RESPIRATIONS EVEN AND UNLABORED. NO ACUTE SIGNS OF DISTRESS. SKIN WARM AND DRY. DENIES OTHER NEED AT THIS TIME. SAFETY PRECAUTIONS IN PLACE. BED LOCKED AND AT LOWEST LEVEL. 2 SIDE RAILS UP AND BED ALARM ON. CALL LIGHT WITHIN REACH. 1:1 WITH PT.
[2022-04-14] MEDS: ONDANSETRON HCL/PF 4 MG/2 ML VIAL IVP PRN (20:27)
--- NOTE | 2022-04-14 20:27 | NUR ---
RN NOTE PT REPORTS OF FEELING NAUSEOUS. ZOFRAN 4 MG ADMINISTERED. WILL MONITOR FOR EFFECTIVENESS.
[2022-04-14] MEDS: QUETIAPINE FUMARATE 25 MG TABLET PO PRN (23:11)
[2022-04-15] VITALS: BP_SYST 96; BP_SYST 98; BP_DIAS 54; BP_DIAS 58
[2022-04-15] MEDS: ALBUTEROL HALF STRENGTH 1.25 MG/3 ML VIAL.NEB NEB SCH ×6 (03:30→23:30)
[2022-04-15] MEDS: IPRATROPIUM NEB FS 0.5 MG/2.5 ML AMPUL.NEB NEB SCH ×6 (03:30→23:30)
--- NOTE | 2022-04-15 05:20 | NUR ---
PT AWAKE AND CONFUSED. PT KEEPS TRYING TO GET OUT OF BED AND HAS REMOVED DIAPER 2X. MD NOTIFIED OF PT BEHAVIOR.
[2022-04-15] MEDS: LACTULOSE 10 G/15 ML UDC (PYXIS) PO SCH ×5 (06:46→23:16)
--- NOTE | 2022-04-15 06:57 | NUR ---
RN CLOSING NOTE PT A&OX2 BUT MORE COMPLIANT THAN BEFORE. SKIN AND SCLERA IS JAUNDICED. SKIN WARM AND DRY. MOHAN PICC LINE INTACT. RESPIRATIONS EVEN AND UNLABORED. SAFETY PRECAUTIONS IN PLACE. BED LOCKED AND AT LOWEST LEVEL. BED ALARM ON AND CALL LIGHT WITHIN REACH. X4 RAILS UP DUE TO PT TRYING TO GET OUT OF BED REPEATEDLY. 1:[address]
[2022-04-15 08:00] VITALS: BP 102/60
[2022-04-15] MEDS: THERAHONEY GEL 1.5 OZ TUBE TP SCH (09:09)
[2022-04-15] MEDS: BLOOD SUGAR DIAGNOSTIC 1 EACH STRIP IN SCH ×2 (09:09→20:15)
[2022-04-15] MEDS: INSULIN REGULAR, HUMAN 100 UNIT/ML 3 ML VIAL SQ PRN ×3 (09:41→20:18)
[2022-04-15] MEDS: FAMOTIDINE (20 MG) 20 MG TABLET PO SCH ×2 (09:42→21:02)
[2022-04-15] MEDS: SPIRONOLACTONE 25 MG TABLET PO SCH (09:42)
[2022-04-15] MEDS: PROPRANOLOL HCL 40 MG TABLET NG SCH ×2 (09:42→21:03)
[2022-04-15] MEDS: RIFAXIMIN 550 MG TABLET PO SCH ×2 (09:42→17:39)
[2022-04-15 14:57] LABS: BASOPHILS # (AUTO) 0.1 K/uL (0.0-0.2); BASOPHILS % (AUTO) 0.8 % (0.0-2.0); EOSINOPHILS % (AUTO) 1.9 % (0.0-6.0); HEMATOCRIT 25 % (33-45); HEMOGLOBIN 8.4 g/dL (11.5-14.8); LYMPHOCYTES # (AUTO) 1.5 K/uL (0.8-4.8); LYMPHOCYTES % (AUTO) 21.2 % (20.0-44.0); MEAN CORPUSCULAR HGB CONC 34 g/dl (31.0-36.0); MEAN CORPUSCULAR VOLUME 100 fL (82-100); MONOCYTES # (AUTO) 1.3 K/uL (0.1-1.30); MONOCYTES % (AUTO) 18.3 % (2.0-12.0); NEUTROPHILS % (AUTO) 57.8 % (43.0-81.0); RED BLOOD CELL COUNT(AUTO) 2.48 MIL/uL (4.0-5.2); WHITE BLOOD COUNT (AUTO) 6.9 K/uL (4.3-11.0)
[2022-04-15 15:11] LABS: PLATELET COUNT (AUTO) 32 K/uL (150-450)
[2022-04-15 15:26] LABS: D-DIMER 4.17 mg/L(FEU (0.17-0.50)
[2022-04-15 15:36] LABS: ALBUMIN 1.7 g/dL (3.4-5.0); BILIRUBIN,TOTAL 8.2 mg/dL (0.2-1.0); CALCIUM, SERUM 8.5 mg/dL (8.5-10.1); CREATININE 0.6 mg/dL (0.6-1.3); POTASSIUM 3.6 mmol/L (3.5-5.1); TOTAL PROTEIN, SERUM 5.7 g/dL (6.4-8.2)
[2022-04-15 16:00] VITALS: BP 104/59
[2022-04-15 17:31] LABS: BAND % (MANUAL) 3 % (0.0-5.0); BASOPHILS % (MANUAL) 0 % (0.0-2.0); EOSINOPHILS % (MANUAL) 1 % (0-4); LYMPHOCYTES % (MANUAL) 19 % (16-48); MONOCYTES % (MANUAL) 15 % (0-11.0); NEUTROPHILS % (MANUAL) 62 (42-76)
--- NOTE | 2022-04-15 20:00 | NUR ---
MS RN NOTE PT IN BED AWAKE. A/O X 2 , NO SOB, NO DISTRESS OR DISCOMFORT NOTED. DENIES PAIN. MOHAN PICC LINE INTACT AND PATENT. SIDE RAILS UP X 3 AND CALL LIGHT WITHIN REACH. CONTINUE TO MONITOR HER.
[2022-04-15] MEDS: IBUPROFEN 600 MG TABLET PO PRN (23:17)
--- NOTE | 2022-04-15 23:25 | NUR ---
MS RN NOTE PT IS C/O ABD PAIN MORTINE 600 MG PO GIVEN. ALSO DUE MED GIVEN. REPORT GIVEN TO NURSE WEBB FOR CONTINUE TO CARE.
--- NOTE | 2022-04-15 23:30 | NUR ---
MS RN NOTE RECEIVED PT IN BED AWAKE, A/OX2, PT IS CONFUSED, ON RA, TOLERATING WELL, NO S/S OF DISTRESS. IV ACCESS MOHAN PICC LINE, ALL SAFETY MEASURES IN PLACE, SIDE RAILS UPX3 AND CALL LIGHT WITHIN REACH, WILL CONTINUE TO MONITOR FOR NINA.
[2022-04-16] VITALS (7 sets, daily range): BP systolic 93–115; BP diastolic 39–76
[2022-04-16] MEDS: TRAZODONE 50 MG TABLET PO PRN (00:10)
[2022-04-16] MEDS: ALBUTEROL HALF STRENGTH 1.25 MG/3 ML VIAL.NEB NEB SCH ×5 (03:30→20:48)
[2022-04-16] MEDS: IPRATROPIUM NEB FS 0.5 MG/2.5 ML AMPUL.NEB NEB SCH ×5 (03:30→19:30)
[2022-04-16] MEDS: IBUPROFEN 600 MG TABLET PO PRN (05:41)
[2022-04-16] MEDS: LACTULOSE 10 G/15 ML UDC (PYXIS) PO SCH ×3 (06:16→17:21)
[2022-04-16 06:27] LABS: BASOPHILS # (AUTO) 0.1 K/uL (0.0-0.2); BASOPHILS % (AUTO) 1.2 % (0.0-2.0); EOSINOPHILS % (AUTO) 3.7 % (0.0-6.0); HEMATOCRIT 23 % (33-45); HEMOGLOBIN 7.8 g/dL (11.5-14.8); LYMPHOCYTES # (AUTO) 1.2 K/uL (0.8-4.8); LYMPHOCYTES % (AUTO) 23.9 % (20.0-44.0); MEAN CORPUSCULAR HGB CONC 34 g/dl (31.0-36.0); MEAN CORPUSCULAR VOLUME 102 fL (82-100); MONOCYTES # (AUTO) 0.9 K/uL (0.1-1.30); MONOCYTES % (AUTO) 18.4 % (2.0-12.0); NEUTROPHILS # (AUTO) 2.5 K/uL (1.8-8.9); NEUTROPHILS % (AUTO) 52.8 % (43.0-81.0); RED BLOOD CELL COUNT(AUTO) 2.24 MIL/uL (4.0-5.2); WHITE BLOOD COUNT (AUTO) 4.8 K/uL (4.3-11.0)
--- NOTE | 2022-04-16 06:31 | NUR ---
MS RN NOTE RECEIVED PT IN BED AWAKE, A/OX2, PT IS CONFUSED, ON RA, TOLERATING WELL, NO S/S OF DISTRESS. IV ACCESS MOHAN PICC LINE, ALL DUE MEDS GIVEN. ALL SAFETY MEASURES IN PLACE, SIDE RAILS UPX3 AND CALL LIGHT WITHIN REACH, WILL ENDORSE TO MORNING SHIFT FOR NINA.
[2022-04-16 07:06] LABS: PLATELET COUNT (AUTO) 30 K/uL (150-450)
--- NOTE | 2022-04-16 07:25 | NUR ---
RN OPENING NOTE RECEIVED PT IN BED, AWAKE, ALERT AND ORIENTED X2.PT HAS PERIODS OF CONFUSION ON ROOM AIR TOLERATING WELL AT 98%. NO SIGNS OF PAIN OR DISCOMFORT AT THIS TIME. IV ACCESS MOHAN PICC LINE. ALL SAFETY MEASURES IN PLACE. CALL LIGHT WITHIN REACH. BED LOCKED AT LOWEST POSITION. SIDE RAILS UP X2. CALL LIGHT WITH REACH. SITTER AT BEDSIDE
[2022-04-16] MEDS: BLOOD SUGAR DIAGNOSTIC 1 EACH STRIP IN SCH ×2 (07:36→19:53)
[2022-04-16 07:41] LABS: FERRITIN 130 ng/mL (8-388)
[2022-04-16 08:06] LABS: LYMPHOCYTES % (MANUAL) 21 % (16-48); MONOCYTES % (MANUAL) 17 % (0-11.0); NEUTROPHILS % (MANUAL) 62 (42-76)
[2022-04-16] MEDS: SPIRONOLACTONE 25 MG TABLET PO SCH (08:09)
[2022-04-16] MEDS: RIFAXIMIN 550 MG TABLET PO SCH ×2 (08:09→17:20)
[2022-04-16] MEDS: FAMOTIDINE (20 MG) 20 MG TABLET PO SCH ×2 (08:09→17:20)
[2022-04-16] MEDS: INSULIN REGULAR, HUMAN 100 UNIT/ML 3 ML VIAL SQ PRN ×2 (08:12→19:52)
[2022-04-16 08:16] LABS: IRON, SERUM 126 ug/dl (50-175); TOTAL IRON BINDING CAPACITY 125 ug/dl (250-450)
[2022-04-16] MEDS: PROPRANOLOL HCL 40 MG TABLET NG SCH ×3 (08:36→21:32)
--- NOTE | 2022-04-16 09:00 | NUR ---
RN NOTE MADE AWARE OF LOW PLATELET COUNT 30
[2022-04-16] MEDS: THERAHONEY GEL 1.5 OZ TUBE TP SCH (10:11)
--- NOTE | 2022-04-16 12:06 | NUR ---
RN NOTE NOTIFIED THAT BP 89/55. NO ORDERS GIVEN
--- NOTE | 2022-04-16 13:18 | NUR ---
RN NOTE NOTIFIED THAT PT WANTS ANOTHER PEPCID. ORDERED PEPCID 20 BID.ORDERS NOTED AND CARRIED OUT
[2022-04-16] MEDS ORDERED: diphenhydrAMINE HCL 50 MG/ML VIAL IV ONE (16:00)
--- NOTE | 2022-04-16 18:44 | NUR ---
RN NOTE NOTIFIED THAT PT WANTS DOSE OF LACTULOSE TO BE REDUCED
--- NOTE | 2022-04-16 18:47 | NUR ---
RN CLOSING NOTE PT IN BED, AWAKE, ALERT AND ORIENTED X2.PT HAS PERIODS OF CONFUSION ON ROOM AIR TOLERATING WELL AT 98%. NO SIGNS OF PAIN OR DISCOMFORT AT THIS TIME. IV ACCESS MOHAN PICC LINE.INTACT, PATENT AND FLUSHING WELL. ALL SAFETY MEASURES IN PLACE. CALL LIGHT WITHIN REACH. BED LOCKED AT LOWEST POSITION. SIDE RAILS UP X2. CALL LIGHT WITH REACH. SITTER AT BEDSIDE.ENDORSED TO J2EE JAVA DEVELOPER RN
--- NOTE | 2022-04-16 18:58 | NUR ---
RN NOTE PT DAUGHTER BROUGHT HOME MEDICATION TRULICITY. GAVE IT TO PHARMACIST
--- NOTE | 2022-04-16 19:10 | NUR ---
RN NOTES RECEIVED REPORT FROM MORNING RN. PATIENT IN BED A/O X2 WITH PERIOD OF CONFUSION SITTER AT BEDSIDE. ON ROOM AIR SATING 98% NO SOB NO DISTRESS NOTED. WITH IV ACCESS AT L UA PICC LINE PATENT FLUSHES WELL. ALL SAFETY MEASURES 8IN [address] AT ALL TIMES. HOB ELEVATED. CALL LIGHT WITHIN REACH. FOR TRANSFUSION OF CRYOPRECIPITATE. WILL CLOSELY MONITOR THE PATIENT
--- NOTE | 2022-04-16 20:33 | NUR ---
RN NOTES CRYOPRECIPITATE STARTED 118ML, VITAL SIGNS TAKEN AND RECORDED. WILL CLOSELY MONITOR THE PATIENT.
--- NOTE | 2022-04-16 20:50 | NUR ---
RN NOTES TRANSFUSION COMPLETED. VITAL SIGNS WITHIN NORMAL LIMIT. SITTER AT BEDSIDE AT ALL TIMES
[2022-04-17] VITALS: BP 102/53
[2022-04-17] MEDS: IPRATROPIUM NEB FS 0.5 MG/2.5 ML AMPUL.NEB NEB SCH ×3 (00:40→07:35)
[2022-04-17] MEDS: ALBUTEROL HALF STRENGTH 1.25 MG/3 ML VIAL.NEB NEB SCH ×3 (00:40→07:35)
[2022-04-17] MEDS: LACTULOSE 10 G/15 ML UDC (PYXIS) PO SCH ×3 (00:56→11:32)
--- NOTE | 2022-04-17 06:47 | NUR ---
RN NOTES PATIENT REAMINS STABLE NO SIGNIFICANT CHANGES STILL WITH SITTER AT BEDSIDE AT ALL TIMES. WILL ENDORSED TO MORNING SHIFT FOR NINA
[2022-04-17] MEDS: BLOOD SUGAR DIAGNOSTIC 1 EACH STRIP IN SCH (07:46)
--- NOTE | 2022-04-17 07:53 | NUR ---
RN OPENING NOTE PT IN BED, AWAKE, ALERT AND ORIENTED X2.PT HAS PERIODS OF CONFUSION ON ROOM AIR TOLERATING WELL, NO SOB NOTED, RESPIRATION EVEN AND UNLABORED, NO SIGNS OF PAIN OR DISCOMFORT AT THIS TIME. IV ACCESS MOHAN PICC LINE.INTACT, PATENT AND FLUSHING WELL. ALL SAFETY MEASURES IN PLACE. CALL LIGHT WITHIN REACH. BED LOCKED AT LOWEST POSITION. SIDE RAILS UP X2. CALL LIGHT WITH REACH. SITTER AT BEDSIDE. WILL CONTINUE PLAN OF CARE.
[2022-04-17 08:00] VITALS: BP 94/61
[2022-04-17] MEDS ORDERED: GABA300C PO (08:24)
[2022-04-17] MEDS ORDERED: ARIP30TA3 PO (08:24)
[2022-04-17] MEDS ORDERED: METF-440 PO (08:24)
[2022-04-17] MEDS ORDERED: ESCI10TA PO (08:24)
[2022-04-17] MEDS ORDERED: RIFA550T PO (08:24)
[2022-04-17] MEDS ORDERED: DULO60CA64 PO (08:24)
[2022-04-17] MEDS ORDERED: LACT10SO3 PO (08:24)
[2022-04-17] MEDS ORDERED: FAMO20TA80 PO (08:24)
[2022-04-17] MEDS ORDERED: PROP40TA7 NG (08:24)
[2022-04-17] MEDS: SPIRONOLACTONE 25 MG TABLET PO SCH (08:31)
[2022-04-17] MEDS: FAMOTIDINE (20 MG) 20 MG TABLET PO SCH (08:31)
[2022-04-17 09:00] VITALS: BP 94/61
[2022-04-17] MEDS: PROPRANOLOL HCL 40 MG TABLET NG SCH (09:00)
[2022-04-17] MEDS: THERAHONEY GEL 1.5 OZ TUBE TP SCH (09:07)
[2022-04-17] MEDS: RIFAXIMIN 550 MG TABLET PO SCH (09:08)
[2022-04-17] MEDS: INSULIN REGULAR, HUMAN 100 UNIT/ML 3 ML VIAL SQ PRN (09:12)
[2022-04-17 09:47] LABS: BASOPHILS # (AUTO) 0.1 K/uL (0.0-0.2); BASOPHILS % (AUTO) 1.4 % (0.0-2.0); EOSINOPHILS % (AUTO) 4.7 % (0.0-6.0); HEMATOCRIT 24 % (33-45); HEMOGLOBIN 7.9 g/dL (11.5-14.8); LYMPHOCYTES # (AUTO) 1.2 K/uL (0.8-4.8); LYMPHOCYTES % (AUTO) 24.4 % (20.0-44.0); MEAN CORPUSCULAR HGB CONC 33 g/dl (31.0-36.0); MEAN CORPUSCULAR VOLUME 104 fL (82-100); MONOCYTES # (AUTO) 0.9 K/uL (0.1-1.30); MONOCYTES % (AUTO) 17.6 % (2.0-12.0); NEUTROPHILS # (AUTO) 2.5 K/uL (1.8-8.9); NEUTROPHILS % (AUTO) 51.9 % (43.0-81.0); WHITE BLOOD COUNT (AUTO) 4.8 K/uL (4.3-11.0)
[2022-04-17 09:49] LABS: PLATELET COUNT (AUTO) 35 K/uL (150-450)
[2022-04-17 10:21] LABS: CALCIUM, SERUM 7.8 mg/dL (8.5-10.1); CREATININE 0.7 mg/dL (0.6-1.3); POTASSIUM 4.3 mmol/L (3.5-5.1)
[2022-04-17 12:41] LABS: EOSINOPHILS % (MANUAL) 5 % (0-4); LYMPHOCYTES % (MANUAL) 26 % (16-48); MONOCYTES % (MANUAL) 17 % (0-11.0); NEUTROPHILS % (MANUAL) 52 (42-76)
--- NOTE | 2022-04-17 13:45 | NUR ---
VARNISH DIPPER NOTES DISCHARGE INSTRUCTIONS REVIEWED WITH THE PATIENT AND FAMILY AT THE BEDSIDE, DISCHARGE PAPERWORKS SIGNED. ALL PERSONAL BELONGINGS RELEASED TO THE PATIENT. LINE REMOVED, NO BLEEDING NOTED.PATIENT STABLE AT THIS TIME. PATIENT WHEELED BY PRAVIN TO THE LOBBY.
== END 2022-04-17 14:30 | disposition home health service (06) | DRG 130 ==
LOC: ER 16:16 → TRANSITION 23:28 → ICU 03-24 07:39 → TELE-TD 04-02 11:43 → TELE1 04-04 08:38 → MEDSG1 04-10 10:44
PROVIDERS: ADMIT Nurse Practitioner Acute Care; ATTEND Internal Medicine
PROC: 5A1955Z Respiratory Ventilation, Greater than 96 Consecutive Hours (ICD-10-PCS; principal; 2022-03-23)
PROC: 0BH18EZ Insertion of Endotracheal Airway into Trachea, Via Natural or Artificial Opening Endoscopic (ICD-10-PCS; 2022-03-23)
PROC: 02HV33Z Insertion of Infusion Device into Superior Vena Cava, Percutaneous Approach (ICD-10-PCS; 2022-03-24)
PROC: B548ZZA Ultrasonography of Superior Vena Cava, Guidance (ICD-10-PCS; 2022-03-24)
PROC: 4A00X4Z Measurement of Central Nervous Electrical Activity, External Approach (ICD-10-PCS; 2022-03-26)
PROC: 30233M1 Transfusion of Nonautologous Plasma Cryoprecipitate into Peripheral Vein, Percutaneous Approach (ICD-10-PCS; 2022-03-27)
PROC: 30233K1 Transfusion of Nonautologous Frozen Plasma into Peripheral Vein, Percutaneous Approach (ICD-10-PCS; 2022-03-29)
DX: J96.01 Acute respiratory failure with hypoxia (principal); J69.0 Pneumonitis due to inhalation of food and vomit; G93.41 Metabolic encephalopathy; D61.818 Other pancytopenia; E43 Unspecified severe protein-calorie malnutrition; K65.2 Spontaneous bacterial peritonitis; D68.4 Acquired coagulation factor deficiency; I85.10 Secondary esophageal varices without bleeding; D69.6 Thrombocytopenia, unspecified; D50.9 Iron deficiency anemia, unspecified; J18.9 Pneumonia, unspecified organism; K76.82 Hepatic encephalopathy; K72.10 Chronic hepatic failure without coma; K76.6 Portal hypertension; E87.0 Hyperosmolality and hypernatremia; E87.1 Hypo-osmolality and hyponatremia; K70.31 Alcoholic cirrhosis of liver with ascites; D53.9 Nutritional anemia, unspecified; D69.59 Other secondary thrombocytopenia; E87.6 Hypokalemia; E88.09 Other disorders of plasma-protein metabolism, not elsewhere classified; F17.210 Nicotine dependence, cigarettes, uncomplicated; F32.9 Major depressive disorder, single episode, unspecified; F41.9 Anxiety disorder, unspecified; I50.9 Heart failure, unspecified; J98.11 Atelectasis; K52.9 Noninfective gastroenteritis and colitis, unspecified; K80.20 Calculus of gallbladder without cholecystitis without obstruction; L98.429 Non-pressure chronic ulcer of back with unspecified severity; N28.9 Disorder of kidney and ureter, unspecified; R56.9 Unspecified convulsions; Z20.822 Contact with and (suspected) exposure to COVID-19; Z79.4 Long term (current) use of insulin; E11.9 Type 2 diabetes mellitus without complications; Z91.81 History of falling; R29.6 Repeated falls; Z79.899 Other long term (current) drug therapy; F10.288 Alcohol dependence with other alcohol-induced disorder; Z79.84 Long term (current) use of oral hypoglycemic drugs; R16.1 Splenomegaly, not elsewhere classified; R94.01 Abnormal electroencephalogram [EEG]; S80.12XA Contusion of left lower leg, initial encounter; S80.11XA Contusion of right lower leg, initial encounter; W19.XXXA Unspecified fall, initial encounter; Y93.9 Activity, unspecified; Y92.009 Unspecified place in unspecified non-institutional (private) residence as the place of occurrence of the external cause
CPT/HCPCS: 31720; 36415; 36569; 36600; 70450-TC; 71045-TC; 76705-TC; 80048-TC; 80053-TC; 80076-TC; 80202-TC; 81001; 82140-TC; 82247-TC; 82248-TC; 82607-TC; 82728-TC; 82784; 82803-TC; 82962-TC; 83540-TC; 83605-TC; 83690-TC; 83735-TC; 83880; 84100-TC; 84155; 84165; 84439-TC; 84443-TC; 84484-TC; 84703-TC; 85025-TC; 85378-TC; 85385-TC; 85396; 85610-TC; 85730-TC; 86140-TC; 86225; 86235; 86334; 86431-TC; 86706; 86803; 86850-TC; 87040-TC; 87081-TC; 87086-TC; 87340; 87806; 92526; 92611-TC; 93307-TC; 93971-TC; 94002-TC; 94003-TC; 94760-TC; 94762-TC; 94799-TC; 95819-TC; 97110-TC; 97112-TC; 97530-TC; 99082-TC; C9113; C9803; G0378; G0480; J0692; J1100; J1200; J1815; J1940; J2060; J2270; J2405; J2543; J2916; J3370; J3430; J3480; J3490; J7030; J7040; J7042; J7050; J7060; P9012; P9017; Q9967; U0003

== ENCOUNTER 2022-04-20 18:46 | Inpatient (IN) | payer BC, OTHER ==
[~2022-04-20] VITALS: Ht 152.4 cm; Wt 57.6 kg
[~2022-04-20 18:46] MED LIST: ARIP30TA3 PO; DULO60CA64 PO; ESCI10TA PO; FAMO20TA80 PO; GABA300C PO; INSU100I14 SQ; LACT10SO3 PO; METF-440 PO; PROP40TA7 NG; RIFA550T PO
[2022-04-20] MEDS ORDERED: IV D5 LR 1,000 ML IV ONE (19:30)
--- NOTE | 2022-04-20 19:54 | NUR ---
WILLIAM TIRADO From /Rehab [id number] [facility] "Was given Insulin - low BS around 6pm- 38. Given D10 250 now 120". On room air, breathing evenly and unlabored. Kept comfortable, will continue to monitor accordingly.
[2022-04-20 20:32] LABS: BASOPHILS % (AUTO) 0.8 % (0.0-2.0); EOSINOPHILS % (AUTO) 5.5 % (0.0-6.0); HEMATOCRIT 30 % (33-45); LYMPHOCYTES % (AUTO) 30.4 % (20.0-44.0); MEAN CORPUSCULAR HGB CONC 33 g/dl (31.0-36.0); MEAN CORPUSCULAR VOLUME 108 fL (82-100); MONOCYTES % (AUTO) 21.9 % (2.0-12.0); NEUTROPHILS % (AUTO) 41.4 % (43.0-81.0); PLATELET COUNT (AUTO) 57 K/uL (150-450); RED BLOOD CELL COUNT(AUTO) 2.79 MIL/uL (4.0-5.2); WHITE BLOOD COUNT (AUTO) 3.8 K/uL (4.3-11.0)
[2022-04-20 20:33] LABS: LYMPHOCYTES # (AUTO) 1.2 K/uL (0.8-4.8); MONOCYTES # (AUTO) 0.8 K/uL (0.1-1.30); NEUTROPHILS # (AUTO) 1.6 K/uL (1.8-8.9)
[2022-04-20 20:44] LABS: CALCIUM, SERUM 8.2 mg/dL (8.5-10.1); CARBON DIOXIDE 28 mmol/L (21-32); CHLORIDE 103 mmol/L (98-107); CREATININE 0.8 mg/dL (0.6-1.3); GLUCOSE 116 mg/dL (74-106); POTASSIUM 3.3 mmol/L (3.5-5.1); SODIUM SERUM 139 mmol/L (136-145); UREA NITROGEN, BLOOD 15 mg/dL (7-18)
[2022-04-20 20:47] LABS: SERUM AMMONIA 46 umol/L (11-32)
--- NOTE | 2022-04-20 21:03 | NUR ---
covid swab collected and sent to lab.
[2022-04-20 21:16] LABS: ALANINE AMINOTRANSFERASE 45 U/L (12-78); ALBUMIN 1.9 g/dL (3.4-5.0); ALKALINE PHOSPHATASE 219 U/L (46-116); ASPARTATE AMINOTRANSFERASE 57 U/L (15-37); BILIRUBIN,DIRECT 6.3 mg/dL (0.0-0.2); BILIRUBIN,TOTAL 10.6 mg/dL (0.2-1.0); LIPASE 387 U/L (73-393); TOTAL PROTEIN, SERUM 6.2 g/dL (6.4-8.2)
[2022-04-20 22:15] LABS: BAND % (MANUAL) 1 % (0.0-5.0); EOSINOPHILS % (MANUAL) 2 % (0-4); LYMPHOCYTES % (MANUAL) 30 % (16-48); MONOCYTES % (MANUAL) 10 % (0-11.0); NEUTROPHILS % (MANUAL) 57 (42-76)
--- NOTE | 2022-04-20 22:35 | NUR ---
[facility] CALLED FOR TRANSFER REQUEST. NO CAPACITY
[2022-04-20] MEDS ORDERED: IV NS 0.9% 1,000 ML IV ONE (23:30)
[2022-04-21] MEDS ORDERED: MORPHINE SULFATE INJ 4 MG/ML DISP.SYRIN ONE (01:56)
[2022-04-21] MEDS ORDERED: MORPHINE SULFATE INJ 2 MG/ML DISP.SYRIN IV ONE (02:00)
[2022-04-21] MEDS ORDERED: LORAZEPAM INJ 2 MG/ML VIAL ONE (02:00)
[2022-04-21] MEDS ORDERED: LORAZEPAM INJ 2 MG/ML VIAL IV ONE (02:00)
[2022-04-21] MEDS ORDERED: DEXTROSE 50%-WATER 50 ML DISP.SYRIN IV PRN (08:00)
[2022-04-21] MEDS ORDERED: QUETIAPINE FUMARATE 25 MG TABLET PO PRN (08:00)
--- NOTE | 2022-04-21 08:20 | NUR ---
DR ARREOLA AT BEDSIDE W/ PATIENT
[2022-04-21] MEDS ORDERED: Z GUARD REMEDY 4 OZ OINT TP PRN (08:30)
[2022-04-21] MEDS ORDERED: ONDANSETRON HCL/PF 4 MG/2 ML VIAL IVP PRN (08:30)
[2022-04-21] MEDS ORDERED: DULOXETINE HCL 30 MG CAPSULE.DR PO SCH (09:00)
[2022-04-21] MEDS: LACTULOSE 10 G/15 ML UDC (PYXIS) PO SCH ×2 (09:00→17:00)
[2022-04-21] MEDS ORDERED: ESCITALOPRAM OXALATE (10 MG) 10 MG TABLET PO SCH (09:00)
[2022-04-21] MEDS ORDERED: GABAPENTIN 300 MG CAPSULE PO SCH (09:00)
[2022-04-21] MEDS: PROPRANOLOL HCL 40 MG TABLET NG SCH ×2 (09:00→20:53)
[2022-04-21] MEDS ORDERED: ARIPIPRAZOLE 5 MG TABLET PO SCH (09:00)
[2022-04-21] MEDS: PANTOPRAZOLE 40 MG VIAL IV SCH ×2 (09:00→17:08)
[2022-04-21] MEDS: FAMOTIDINE (20 MG) 20 MG TABLET PO SCH ×2 (09:00→17:00)
[2022-04-21] MEDS: METFORMIN 500 MG TABLET PO SCH (09:00)
[2022-04-21] MEDS: RIFAXIMIN 550 MG TABLET PO SCH ×2 (09:00→17:00)
--- NOTE | 2022-04-21 09:08 | NUR ---
URINE COLLECTED AND SENT
--- NOTE | 2022-04-21 09:28 | NUR ---
CONTACT NUMBER - [facility] CAREGIVER . [phone]
[2022-04-21 10:00] LABS: BILIRUBIN,URINE 2+ (NEGATIVE); COLOR,URINE YELLOW (YELLOW); LEUKOCYTE ESTERASE ,URINE 1+ (NEGATIVE); NITRITE, URINE NEGATIVE (NEGATIVE); PROTEIN,URINE NEGATIVE (NEGATIVE); UGLUCOSE NEGATIVE (NEGATIVE); UROBILINOGEN,URINE 0.2 EU/dL (0.2)
[2022-04-21 10:04] LABS: BACTERIA,URINE Many /HPF (None Seen); RBC,URINE 0-2 /HPF (0-2); SQUAMOUS EPITHELIAL CELL,UR Few /HPF (None Seen)
--- NOTE | 2022-04-21 10:19 | NUR ---
ROLANDO FROM [facility] [phone]
--- NOTE | 2022-04-21 10:58 | NUR ---
ROOM 311-1
--- NOTE | 2022-04-21 11:08 | NUR ---
REPORT GIVEN TO JAHAIRA TAVAREZ
--- NOTE | 2022-04-21 11:25 | NUR ---
MOVED TO IN PATIENT ROOM SAFELY
--- NOTE | 2022-04-21 11:59 | NUR ---
MAGAZINE FILLER ADMITTING NOTES PT ADMITTED TO UNIT VIA DC @ 1130 WITH DX OF CHEST PAIN. PT IS VERY LETHARGIC AT THIS TIME, RESPONSIVE TO TACTILE AND PAIN STIMULI. CAREGIVER CHACHEY AT BEDSIDE AND ORIENTED TO STAFF AND ROOM. PT ON SUPPLEMENTAL 02 VIA N/C AT 2LPM, TOLERATING WELL, BREATHING EVEN AND UN-LABORED. PT WITH IV ACCESS NOTED ON LFA G#2, SL, INTACT AND PATENT. PT NOTED WITH YELLOWISH SKIN AND SCLERA. PHOTOS OF SKIN ISSUES TAKEN AND FILED ON HER CHART. PLACED ON EXTERNAL CARDIAC CATHETER WITH CURRENT READING OF NSR, HR 62, NO CARDIAC DISTRESS NOTED AT THIS TIME. ALL SAFETY MEASURES IMPLEMENTED: BED PLACED IN LOWEST LOCKED POSITION WITH SIDE-RAILS UP X3. CALL LIGHT W/I EASY REACH. WILL CONTINUE TO MONITOR PT.
--- NOTE | 2022-04-21 12:00 | NUR ---
RN NOTES UN-ABLE TO GIVE PO MEDICATIONS. PT VERY LETHARGIC AT THIS MOMENT. CAREGIVER CHACHEY AT BEDSIDE AND AWARE.
[2022-04-21] MEDS: BLOOD SUGAR DIAGNOSTIC 1 EACH STRIP IN SCH ×3 (12:08→22:37)
[2022-04-21] MEDS: INSULIN REGULAR, HUMAN 100 UNIT/ML 3 ML VIAL SQ PRN ×3 (12:09→22:38)
[2022-04-21] MEDS: IV D5/ 0.9% NACL 1,000 ML IV PRN (13:17)
[2022-04-21 16:00] VITALS: BP 90/44
--- NOTE | 2022-04-21 18:34 | NUR ---
AIRCRAFT RIGGING AND CONTROLS MECHANIC CLOSING NOTES PT IN BED ASLEEP AT THIS TIME WITH HOB ELEVATED. PT IS A/O X1 AT THIS TIME. ON SUPPLEMENTAL 02 VIA N/C @ 2LPM, TOLERATING WELL, BREATHING EVEN AND UN-LABORED. ON TELE MONITOR WITH CURRENT READING OF NSR, HR 60, NO S/S OF CARDIAC DISTRESS NOTED. IV ACCESS IN LFA #20 G INTACT WITH IVF OF D5 NS @ 50ML/HR INFUSING WELL, NO S/S OF INFILTRATION AT SITE NOTED. ALL NEEDS AND CARE ANTICIPATED AND MET. SAFETY MEASURES IN PLACE: BED IN LOWEST LOCKED POSITION, SIDE RAILS UP X3, BED ALARM ON, KEPT HOB ELEVATED AND CALL LIGHT WITHIN REACH. WILL ENDORSE NINA TO WRAP KNITTING MACHINE OPERATOR NURSE.
--- NOTE | 2022-04-21 19:46 | NUR ---
RN OPENING NOTES RECEIVED PT IN BED, ASLEEP, AWAKENS TO PAINFUL STIMULI. AOx1, VERY LETHARGIC. ON NC 2LPM AND TOLERATING WELL. NO SOB NOTED. NO S/SX OF RESPIRATORY DISTRESS NOTED. IV ACCESS LFA #20G RUNNING D5NS@ 50 ML/HR. SAFETY PRECAUTIONS IN PLACE: BED IN LOWEST, LOCKED POSITION, SIDERAILS UPx2, AND BRAKES ON. TABLE AND CALL LIGHT WITHIN REACH. ALL NEEDS MET AT THIS TIME.
[2022-04-21 20:00] VITALS: BP 90/50
[2022-04-22] VITALS: BP 150/57
[2022-04-22] MEDS: IV D5/ 0.9% NACL 1,000 ML IV PRN (03:47)
[2022-04-22 04:00] VITALS: BP_SYST 109; BP_SYST 144; BP_DIAS 59; BP_DIAS 61
--- NOTE | 2022-04-22 05:44 | NUR ---
RN NOTE PATIENT WOKE UP AND BEGAN SCREAMING. WAS SIDEWAYS ON THE BED. ATTEMPTED TO HELP PT GET BACK IN BED CORRECTLY BUT SHE SLAPPED STAFF. MORE STAFF CAME IN TO ASSIST PT BACK INTO BED AND PT TRIED TO BITE, SLAP, AND KICK STAFF. CHARGE NURSE MADE AWARE. MADE AWARE AND ORDERED RESTRAINTS.
[2022-04-22] MEDS: BLOOD SUGAR DIAGNOSTIC 1 EACH STRIP IN SCH ×2 (06:45→12:16)
[2022-04-22] MEDS: INSULIN REGULAR, HUMAN 100 UNIT/ML 3 ML VIAL SQ PRN (06:46)
--- NOTE | 2022-04-22 06:46 | NUR ---
RN NOTES PATIENT HAS NOT EATEN SINCE BEING ADMITTED SO DID NOT ADMINISTER INSULIN.
--- NOTE | 2022-04-22 07:30 | NUR ---
RN OPENING NOTE PATIENT AWAKE IN BED SCREAMING, VERY CONFUSE A/O X 1. NO S/S OF PAIN NOTED AT THIS TIME. ON 2L OXYGEN VIA NC, NO DISTRESS OR SHORTNESS OF BREATH NOTED. IV ACCESS LFA #20G, INTACT, PATENT AND FLUSHING WELL. FALL AND SAFETY MEASURES IN PLACE, BED ALARM ON, BED IN LOW AND LOCK POSITION, CALL LIGHT AND TABLE WITHIN EASY REACH, SIDE RAILS X2. WILL CONTINUE TO MONITOR.
--- NOTE | 2022-04-22 07:40 | NUR ---
RN CLOSING NOTES PT IN BED, AWAKE, SCREAMING. AOx1. ON NC 2LPM AND TOLERATING WELL. NO SOB NOTED. NO S/SX OF RESPIRATORY DISTRESS NOTED. IV ACCESS LFA #20G RUNNING D5NS@ 50 ML/HR. ALL ORDERS CARRIED OUT. ALL NEEDS MET. PT KEPT CLEAN AND DRY. SAFETY PRECAUTIONS IN PLACE: BED IN LOWEST, LOCKED POSITION, SIDERAILS UPx2, AND BRAKES ON. TABLE AND CALL LIGHT WITHIN REACH. WILL ENDORSE TO ONCOMING SHIFT FOR NINA.
[2022-04-22 08:00] VITALS: BP 111/68
[2022-04-22] MEDS: FAMOTIDINE (20 MG) 20 MG TABLET PO SCH (09:00)
[2022-04-22] MEDS: METFORMIN 500 MG TABLET PO SCH (09:00)
[2022-04-22] MEDS: LACTULOSE 10 G/15 ML UDC (PYXIS) PO SCH (09:00)
[2022-04-22] MEDS: RIFAXIMIN 550 MG TABLET PO SCH (09:00)
[2022-04-22] MEDS: PROPRANOLOL HCL 40 MG TABLET NG SCH (09:00)
[2022-04-22] MEDS ORDERED: THERAHONEY GEL 1.5 OZ TUBE TP SCH (09:30)
--- NOTE | 2022-04-22 09:30 | NUR ---
WOUND CARE CONSULT: PT PRESENTS WITH STAGE 3 SACRAL PRESSURE ULCER AND NECROTIC WOUND TO RT ANKLE, PRESENT ON ADMISSION. DR MARIANGEL FRENCH CALLED FOR SURGICAL CONSULT AND DR GODINEZ FOR DPM CONSULT. RECOMMENDATIONS MADE FOR SACRAL WOUND CARE AND SKIN PROTECTION. DISCUSSED WITH NURSING STAFF. PT MOVES HER LEGS ABOUT IN THE BED ALMOST CONSTANTLY. PT SCREAMS AT TIMES. IN AGREEMENT WITH PLAN OF CARE. Addendum: 04/22/22 at 0932 by JOHNSON DALE WNDNU Amended: Links added.
[2022-04-22 12:00] VITALS: BP 103/57
[2022-04-22] MEDS ORDERED: CEFTRIAXONE 1 G in IV D5W 50 ML IV SCH (12:00)
[2022-04-22 13:09] LABS: BASOPHILS % (AUTO) 0.9 % (0.0-2.0); EOSINOPHILS % (AUTO) 0.9 % (0.0-6.0); HEMATOCRIT 27 % (33-45); HEMOGLOBIN 8.5 g/dL (11.5-14.8); LYMPHOCYTES # (AUTO) 1.6 K/uL (0.8-4.8); LYMPHOCYTES % (AUTO) 32.2 % (20.0-44.0); MEAN CORPUSCULAR HGB CONC 32 g/dl (31.0-36.0); MEAN CORPUSCULAR VOLUME 108 fL (82-100); MONOCYTES # (AUTO) 0.7 K/uL (0.1-1.30); MONOCYTES % (AUTO) 13.6 % (2.0-12.0); NEUTROPHILS # (AUTO) 2.6 K/uL (1.8-8.9); NEUTROPHILS % (AUTO) 52.4 % (43.0-81.0); PLATELET COUNT (AUTO) 57 K/uL (150-450); RED BLOOD CELL COUNT(AUTO) 2.44 MIL/uL (4.0-5.2); WHITE BLOOD COUNT (AUTO) 5.1 K/uL (4.3-11.0)
--- NOTE | 2022-04-22 14:30 | NUR ---
SPECIALIST FIELD ENGINEER NOTE PATIENT LEFT AMA AT 16:30, PATIENT WAS TAKEN VIA AMBULANCE, CAREGIVER AND PATIENT'S MOTHER WERE AT BED SIDE. INFORMATION WAS PROVIDE OF RISK OF LEAVING AMA. PATIENT A/O X1, PATIENT IS VERY CONFUSE V/S TAKEN, STABLE AND RECORDED. NAME BAND REMOVED. EXTERNAL PERSONAL COMPUTER NETWORK ANALYST REMOVED AND RETURNED TO TELE DESK. PATIENT'S MOTHER REFUSED SKIN ASSESSMENT AND PICTURES. MILLER CATHETER WAS REMOVED AND INSTRUCTED TO MONITOR PATIENT URINE OUTPUT. ALL BELONGINGS CHECKED AND BELONGINGS LIST SIGNED BY PATIENT'S MOTHER. HEALTH TEACHING AND DISCHARGE INSTRUCTIONS GIVEN TO PATIENT'S MOTHER AND VERBALIZED UNDERSTANDING AND DECIDED TO TAKE PATIENT AMA EVEN AFTER EXPLAINING THE RISK THE RISKS. INSTRUCTED PATIENT TO MAKE SURE TO FOLLOW UP WITH DOCTOR, AND IN IN CASE OF EMERGENCY TO CALL 911 OR GO TO NEAREST ER, PATIENT'S MOTHER STATED THAT THEY WILL BE TAKING PATIENT TO [facility]. PATIENT LEFT UNIT VIA GURNEY WITH NO SIGNS OF DISTRESS, ACCOMPANIED BY PARAMEDICS. DOCTOR WAS INFORMED. CHARGE NURSE AWARE OF DISCHARGE.
[2022-04-22 14:33] LABS: CALCIUM, SERUM 7.6 mg/dL (8.5-10.1); CREATININE 0.9 mg/dL (0.6-1.3); MAGNESIUM 1.4 mg/dL (1.8-2.4); PHOSPHORUS 3.5 mg/dL (2.5-4.9); POTASSIUM 4.5 mmol/L (3.5-5.1)
[2022-04-22] MEDS ORDERED: QUETIAPINE FUMARATE 25 MG TABLET PO PRN (16:00)
[2022-04-22] MEDS ORDERED: Thiamine 100 MG in IV D5W 50 ML IV SCH (16:00)
--- NOTE | 2022-04-22 16:10 | NUR ---
rRN NOTE- AGITATION SCREAMING, PULLING AT MILLER CATHETER, DANGER OF HARMING SELF AND OTHERS. ZYPREXA 5MG IM STAT ORDERED. MILLER CATHETER DC. COMPLIED
[2022-04-22 16:17] LABS: BAND % (MANUAL) 3 % (0.0-5.0); LYMPHOCYTES % (MANUAL) 17 % (16-48); METAMYELOCYTES % 1 % (0-0); MONOCYTES % (MANUAL) 9 % (0-11.0); MYELOCYTES % 1 % (0-0); NEUTROPHILS % (MANUAL) 69 (42-76)
[2022-04-22] MEDS ORDERED: OLANZAPINE 10 MG VIAL IM ONE (16:30)
[2022-04-23] MEDS ORDERED: PANTOPRAZOLE 40 MG TABLET.DR PO SCH (07:30)
== END 2022-04-22 16:30 | disposition left against medical advice (07) | DRG 441 ==
LOC: ER 18:51 → TELE 04-21 11:07
PROVIDERS: ADMIT Nurse Practitioner Acute Care; ATTEND Nurse Practitioner Acute Care
DX: K76.82 Hepatic encephalopathy (principal); I21.A1 Myocardial infarction type 2; K76.6 Portal hypertension; D61.818 Other pancytopenia; L97.319 Non-pressure chronic ulcer of right ankle with unspecified severity; E72.20 Disorder of urea cycle metabolism, unspecified; E87.20 Acidosis, unspecified; E46 Unspecified protein-calorie malnutrition; J98.11 Atelectasis; N39.0 Urinary tract infection, site not specified; K70.31 Alcoholic cirrhosis of liver with ascites; E11.649 Type 2 diabetes mellitus with hypoglycemia without coma; K70.40 Alcoholic hepatic failure without coma; Z20.822 Contact with and (suspected) exposure to COVID-19; F10.21 Alcohol dependence, in remission; Z79.899 Other long term (current) drug therapy; Z79.84 Long term (current) use of oral hypoglycemic drugs; Z79.4 Long term (current) use of insulin; D53.9 Nutritional anemia, unspecified; E11.622 Type 2 diabetes mellitus with other skin ulcer; E11.621 Type 2 diabetes mellitus with foot ulcer; F12.90 Cannabis use, unspecified, uncomplicated; F41.9 Anxiety disorder, unspecified; F32.A Depression, unspecified; K80.20 Calculus of gallbladder without cholecystitis without obstruction; E88.09 Other disorders of plasma-protein metabolism, not elsewhere classified; F17.200 Nicotine dependence, unspecified, uncomplicated; B96.89 Other specified bacterial agents as the cause of diseases classified elsewhere; I51.7 Cardiomegaly; L97.519 Non-pressure chronic ulcer of other part of right foot with unspecified severity
CPT/HCPCS: 36415; 71045-TC; 80048-TC; 80076-TC; 81001; 82140-TC; 82962-TC; 83605-TC; 83690-TC; 83735-TC; 84100-TC; 84484-TC; 85025-TC; 85730-TC; 87081-TC; 87086-TC; A6403; C9113; C9803; G0378; J0696; J1815; J2060; J2270; J3411; J3490; J7030; J7042; J7060; U0003